=== PATIENT | female | born 1995 | race Hispanic/Latino ===

== ENCOUNTER 2022-05-06 00:37 | Emergency (ER) | payer SELFPAY ==
[2022-05-06 01:33] LABS: Absolute Lymphocytes (CBC) 2.9 K/uL (0.7-4.9); Hematocrit 42.6 % (36.0-45.0); Lymphocytes % 28.1 % (15.3-44.8); MCV 82.6 fL (80-100); MPV 9.1 fL (7.6-11.3); RBC Red Blood Cell Count 5.16 M/uL (3.86-4.86)
[2022-05-06 01:43] LABS: Albumin 4.2 g/dL (3.4-5.0); Bilirubin Total 0.4 mg/dL (0.2-1.0); Potassium 3.3 mmol/L (3.5-5.1); Protein, Total 7.6 g/dL (6.4-8.2)
[2022-05-06 01:45] LABS: Urine Blood Trace-intact (Negative); Urine Glucose Negative (Negative); Urine Protein Negative (Negative); Urine pH 6.5 (5.0-7.0)
--- NOTE | 2022-05-06 03:22 | ER ---
Nurse's Notes [facility] Name: Felicity Biggs Age: 26 yrs Sex: Female : 1995 Arrival Date: 05/06/2022 Time: 00:41 Bed 7 Private MD: Diagnosis: Lower abdominal pain, unspecified-Left lower quadrant Presentation: 05/06 00:54 Chief complaint: Patient states: I have left Lower abdominal pain that started at 2130. jb4 I am feeling nauseous, have had no diarrhea or vomiting. Coronavirus screen: At this time, the client does not indicate any symptoms associated with coronavirus-19. Ebola Screen: No symptoms or risks identified at this time. Initial Sepsis Screen: Does the patient meet any 2 criteria? No. Patient's initial sepsis screen is negative. Does the patient have a suspected source of infection? Yes: Acute abdominal pain. Risk Assessment: Do you want to hurt yourself or someone else? Patient reports no desire to harm self or others. Onset of symptoms was May 06, 2022. Transition of care: patient was not received from another setting of care. 00:54 Method Of Arrival: Ambulatory jb4 00:54 Acuity: ROSALBA 3 jb4 Historical: - Allergies: 00:55 No Known Allergies; jb4 - PMHx: 00:55 None; jb4 - Immunization history:: Adult Immunizations up to date. - Social history:: Smoking status: Patient denies any tobacco usage or history of. Screenin:56 [facility] ED Fall Risk Assessment (Adult) History of falling in the last 3 months, jb4 including since admission No falls in past 3 months (0 pts) Confusion or Disorientation No (0 pts) Score/Fall Risk Level 0 - 2 = Low Risk Oriented to surroundings, Maintained a safe environment. Abuse screen: Denies threats or abuse. Nutritional screening: No deficits noted. Tuberculosis screening: No symptoms or risk factors identified. Assessment: 00:55 General: Appears in no apparent distress. uncomfortable, Behavior is calm, cooperative, jb4 appropriate for age. Pain: Complains of pain in abdomen Pain does not radiate. Pain currently is 8 out of 10 on a pain scale. Neuro: Level of Consciousness is awake, alert, obeys commands, Oriented to person, place, time, situation. Cardiovascular: Patient's skin is warm and dry. Respiratory: Airway is patent Respiratory effort is even, unlabored, Respiratory pattern is regular, symmetrical. GI: Abdomen is flat, non-distended, Abd is soft X 4 quads Abd is non tender in right lower quadrant and left lower quadrant Abdomen is tender to palpation in right upper quadrant and left upper quadrant. : No signs and/or symptoms were reported regarding the genitourinary system. EENT: No signs and/or symptoms were reported regarding the EENT system. Derm: Skin is intact, Skin is pink, warm \T\ dry. Musculoskeletal: Circulation, motion, and sensation intact. Range of motion: intact in all extremities. 02:37 Reassessment: Patient appears in no apparent distress at this time. Patient and/or jb4 family updated on plan of care and expected duration. Pain level reassessed. Pt is resting in bed with family at the bedside, respirations are even and unlabored. 03:40 Reassessment: Patient appears in no apparent distress at this time. Patient and/or jb4 family updated on plan of care and expected duration. Pain level reassessed. Patient is alert, oriented x 3, equal unlabored respirations, skin warm/dry/pink. Pt reports dizziness that started 8 minutes ago. Provider notified, instructed to monitor pt after medication administration and see if symptoms improve. 04:11 Reassessment: Patient appears in no apparent distress at this time. Patient and/or jb4 family updated on plan of care and expected duration. Pain level reassessed. Patient is alert, oriented x 3, equal unlabored respirations, skin warm/dry/pink. Patient states feeling better. Vital Signs: 00:54 BP 125 / 76; Pulse 79; Resp 16; Temp 99.0(O); Pulse Ox 100% on R/A; jb4 02:21 BP 112 / 70; Pulse 83; Resp 18; Pulse Ox 100% on R/A; as7 04:00 BP 108 / 71; Pulse 83; Resp 16; Pulse Ox 100% on R/A; jb4 ED Course: 00:41 Patient arrived in ED. ja2 00:43 Maximiliano Henry DO is Attending Physician. ms3 00:53 Caio Dominguez, RN is Primary Nurse. jb4 00:55 Triage completed. jb4 00:55 Arm band placed on right wrist. jb4 00:56 Patient has correct armband on for positive identification. Bed in low position. Call 4 light in reach. Side rails up X 1. Client placed on continuous cardiac and pulse oximetry monitoring. NIBP monitoring applied. 01:10 Initial lab(s) drawn, by me, sent to lab. Inserted saline lock: 20 gauge in right jb4 antecubital area, using aseptic technique. Blood collected. 02:16 CT Abd/Pelvis - IV Contrast Only In Process Unspecified. EDMS 03:20 Lamin Theodore DO is Referral Physician. ms3 04:13 No provider procedures requiring assistance completed. IV discontinued, intact, jb4 bleeding controlled, No redness/swelling at site. Pressure dressing applied. Administered Medications: 03:39 Drug: Dicyclomine 20 mg Route: PO; jb4 Medication: 04:00 VIS not applicable for this client. jb4 Outcome: 03:21 Discharge ordered by MD. ms3 04:13 Discharged to home ambulatory. jb4 04:13 Condition: stable 04:13 Discharge instructions given to patient, Instructed on discharge instructions, follow up and referral plans. medication usage, Demonstrated understanding of instructions, follow-up care, medications, Prescriptions given X 1. 04:13 Patient left the ED. jb4 Signatures: Dispatcher [employer] EDMS Caio Dominguez RN RN [email or web address] Maximiliano Henry DO DO ms3 Yvette Delgado Autumn as7 Corrections: (The following items were deleted from the chart) 03:42 00:54 Chief complaint: Patient states: I have left upper abdominal pain that started at jb4 2130. I am feeling nauseous, have had no diarrhea or vomiting. jb4
--- NOTE | 2022-05-06 03:22 | EDPHYS ---
Physician Documentation [facility] Name: Felicity Biggs Age: 26 yrs Sex: Female : 1995 Arrival Date: 05/06/2022 Time: 00:41 Bed 7 Private MD: ED Physician Maximiliano Henry HPI: 05/06 01:28 This 26 yrs old Female presents to ER via Ambulatory with complaints of ms3 Abdominal Pain, Headache. 01:28 26-year-old female with no past medical history presents for left lower quadrant ms3 abdominal pain that began at 9:30 PM. Patient rates her pain an 8/10 and describes it as pulsating. Patient endorses nausea and chills. Patient denies vomiting, diarrhea, fevers, cough.. Historical: - Allergies: 00:55 No Known Allergies; jb4 - PMHx: 00:55 None; jb4 - Immunization history:: Adult Immunizations up to date. - Social history:: Smoking status: Patient denies any tobacco usage or history of. ROS: 01:28 Constitutional: Negative for fever, and chills. ENT: Negative for injury, pain, and ms3 discharge, Neck: Negative for injury, pain, and swelling, Cardiovascular: Negative for chest pain, and palpitations. Respiratory: Negative for shortness of breath, cough, wheezing, and pleuritic chest pain. 01:28 MS/Extremity: Negative for injury and deformity, Skin: Negative for injury, rash, and discoloration. 01:28 Abdomen/GI: Positive for abdominal pain, nausea. 01:28 All other systems are negative. Exam: 01:28 Constitutional: This is a well developed, well nourished patient who is awake, alert, ms3 and in no acute distress. Head/Face: Normocephalic, atraumatic. Chest/axilla: Normal chest wall appearance and motion. Nontender with no deformity. Cardiovascular: Regular rate and rhythm with a normal S1 and S2. No gallops, murmurs, or rubs. Normal PMI, no JVD. No pulse deficits. Respiratory: Lungs have equal breath sounds bilaterally, clear to auscultation and percussion. No rales, rhonchi or wheezes noted. No increased work of breathing, no retractions or nasal flaring. Back: No spinal tenderness. No costovertebral tenderness. Full range of motion. Skin: Warm, dry with normal turgor. Normal color with no rashes, no lesions, and no evidence of cellulitis. MS/ Extremity: Pulses equal, no cyanosis. Neurovascular intact. Full, normal range of motion. 01:28 Abdomen/GI: Inspection: abdomen appears normal, Bowel sounds: normal, Palpation: moderate abdominal tenderness, in the left lower quadrant. Vital Signs: 00:54 BP 125 / 76; Pulse 79; Resp 16; Temp 99.0(O); Pulse Ox 100% on R/A; jb4 02:21 BP 112 / 70; Pulse 83; Resp 18; Pulse Ox 100% on R/A; as7 04:00 BP 108 / 71; Pulse 83; Resp 16; Pulse Ox 100% on R/A; jb4 MDM: 00:54 Patient medically screened. ms3 03:23 Differential diagnosis: Diverticulitis vs Ovarian Cyst vs Abdominal pain. Data ms3 reviewed: vital signs, nurses notes, lab test result(s), radiologic studies, and as a result, I will discharge patient. 02 00:54 Order name: CBC with Diff; Complete Time: 02:03 ms3 05/06 00:54 Order name: CMP; Complete Time: 02:03 ms3 05/06 00:54 Order name: Lipase; Complete Time: 02:03 ms3 05/06 01:28 Order name: CT Abd/Pelvis - IV Contrast Only ms3 05/06 01:45 Order name: Urine Dipstick-Ancillary; Complete Time: 02:03 EDMS 05/06 01:55 Order name: Urine --Ancillary (enter results); Complete Time: 02:03 mw2 05/06 00:54 Order name: IV Saline Lock; Complete Time: 01:32 ms3 05/06 00:54 Order name: Labs collected and sent; Complete Time: 01:32 ms3 05/06 00:54 Order name: Urine Dipstick-Ancillary (obtain specimen); Complete Time: 01:45 ms3 05/06 00:54 Order name: Urine Test (obtain specimen); Complete Time: 01:45 ms3 Administered Medications: 03:39 Drug: Dicyclomine 20 mg Route: PO; jb4 Disposition Summary: 05/06/22 03:21 Discharge Ordered Location: Home ms3 Condition: Stable ms3 Diagnosis - Lower abdominal pain, unspecified - Left lower quadrant ms3 Followup: ms3 - With: Lamin Theodore DO - When: 2 - 3 days - Reason: Recheck today's complaints Discharge Instructions: - Discharge Summary Sheet ms3 - Abdominal Pain, Adult ms3 Forms: - Medication Reconciliation Form ms3 - Thank You Letter ms3 - Antibiotic Education ms3 - Prescription Opioid Use ms3 Prescriptions: - dicyclomine 10 mg Oral Capsule - take 1 capsule by ORAL route 3 times per day; 20 capsule; Refills: 0, Product ms3 Selection Permitted Signatures: Dispatcher [employer] Caio Peralta RN RN jb4 Maximiliano Henry DO DO ms3
[2022-05-06] MEDS ORDERED: DICYCLOMINE HCL 10 MG CAP ONE (03:36)
[2022-05-06 04:27] VITALS: TEMP 99; O2SAT 100
[2022-05-06 04:39] VITALS: BP 108/71
--- NOTE | 2022-05-06 19:06 | RAD REPORT ---
EXAM DESCRIPTION: CT Abdomen and Pelvis With Intravenous Contrast CLINICAL HISTORY: The patient is 26 years old and is Female; ABD PAIN TECHNIQUE: Axial computed tomography images of the abdomen and pelvis with intravenous contrast. S agittal and coronal reformatted images were created and reviewed. This CT exam was performed using one or more of the following dose reduction techniques: automated exposure control, adjustment of t he mA and/or kV according to patient size, and/or use of iterative reconstruction technique. COMPARISON: No relevant prior studies available. FINDINGS: LUNG BASES: Unremarkable. No mass. No consolidation. ABDOMEN: LIVER: Unremarkable. No mass. GALLBLADDER AND BILE DUCTS: No calcified stones. No ductal dilation. PANCREAS: No ductal dilation. No mass. SPLEEN: Unremarkable. ADRENALS: Unremarkable. No mass. KIDNEYS AND URETERS: Unremarkable. The kidneys enhance symmetrically. No obstructing renal or ur eteral calculus is seen. No hydronephrosis or hydroureter. No perinephric fluid or stranding. STOMACH AND BOWEL: The stomach is decompressed. The small bowel is normal in caliber. Stool is p resent throughout colon. There is no mucosal thickening or evidence of obstruction. PELVIS: APPENDIX: The appendix measures 0.7 cm is fluid-filled. The appendix is retrocecal in location. No significant surrounding inflammation is noted. BLADDER: The bladder is incompletely distended. Mild bladder wall thickening is present. REPRODUCTIVE: Unremarkable as visualized. ABDOMEN and PELVIS: INTRAPERITONEAL SPACE: Unremarkable. No free air. No significant fluid collection. BONES/JOINTS: No acute fracture. SOFT TISSUES: The soft tissues are normal. VASCULATURE: Unremarkable. No abdominal aortic aneurysm. LYMPH NODES: Unremarkable. No enlarged lymph nodes. IMPRESSION: 1. Upper limits of normal in size appendix. However, there is no significant surroundi ng inflammation. Correlation with patient's history and follow-up as clinically indicated. 2. Moderate stool burden without obstruction. 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 The interpreting radiologist is fully responsible for the content of the report.
== END 2022-05-06 04:13 | disposition home or self-care (01) ==
LOC: ER 00:37
DX: R10.32 Left lower quadrant pain (principal); R51.9 Headache, unspecified
CPT/HCPCS: 36415; 74177; 80053; 81003; 81025; 83690; 85025; 99284; Q9967

== ENCOUNTER 2022-05-22 21:25 | Emergency (ER) | payer SELFPAY ==
--- NOTE | 2022-05-22 22:32 | RAD REPORT ---
EXAM DESCRIPTION: RAD - Chest Single View - 05/22/2022 10:26 pm CLINICAL HISTORY: CHEST PAIN COMPARISON: No comparisons FINDINGS: Lines: None. Lungs: Basilar airspace disease bilaterally. Pleural: No significant pleural effusions or pneumothorax. Cardiac: The heart size is within normal limits. Mediastinum: Within normal limits. Bones: No acute fractures. Other: None IMPRESSION: Basilar airspace disease that could reflect pneumonia.
[2022-05-22 22:35] LABS: Urine Blood 3+ (Negative); Urine Glucose Negative (Negative); Urine Protein 2+ (Negative)
[2022-05-22] MEDS ORDERED: LORazepam 2 MG/ML VIAL ONE (22:46)
[2022-05-22 22:49] LABS: Absolute Lymphocytes (CBC) 1.9 K/uL (0.7-4.9); Lymphocytes % 15.9 % (15.3-44.8); MCV 82.2 fL (80-100); MPV 9.3 fL (7.6-11.3); RBC Red Blood Cell Count 5.23 M/uL (3.86-4.86)
[2022-05-22 22:57] LABS: Troponin High Sensitivity 3.6 pg/mL (<58.9)
[2022-05-22 23:22] LABS: Urine Bacteria >50 /HPF (<20); Urine Mucus 4+ /HPF (None Seen); Urine RBC 21-50 /HPF (None Seen)
[2022-05-23 01:13] LABS: SARS-COV-2 RT PCR NEGATIVE (NEGATIVE)
--- NOTE | 2022-05-23 01:48 | ER ---
Nurse's Notes [facility] Name: Felicity Biggs Age: 26 yrs Sex: Female : 1995 Arrival Date: 05/22/2022 Time: 21:27 Bed 5 Private MD: Diagnosis: UTI/ Urinary tract infection, site not specified;Pneumonia, unspecified organism;Acute stress reaction Presentation: 05/22 21:57 Chief complaint: Patient states: She is feeling shortness of breath and weak. she feels kd3 like her body isn't responding right. This episode started two hours ago. Her chest hurts and her legs are not responding. 21:57 Method Of Arrival: Wheelchair kd3 22:01 Coronavirus screen: Vaccine status: Patient reports receiving the 2nd dose of the covid kd3 vaccine. Ebola Screen: No symptoms or risks identified at this time. 22:02 Initial Sepsis Screen: Does the patient meet any 2 criteria? No. Patient's initial kd3 sepsis screen is negative. Does the patient have a suspected source of infection? No. Patient's initial sepsis screen is negative. Risk Assessment: Do you want to hurt yourself or someone else? Patient reports no desire to harm self or others. Onset of symptoms was May 22, 2022. 22:02 Acuity: ROSALBA 3 kd3 Triage Assessment: 22:02 General: Appears uncomfortable, Behavior is cooperative, anxious. Pain: Complains of kd3 pain in chest. Historical: - Allergies: 22:02 No Known Allergies; kd3 - Home Meds: 22:02 None [Active]; kd3 - Immunization history:: Adult Immunizations up to date. - Social history:: Smoking status: Patient denies any tobacco usage or history of. Screenin/01 01:29 Abuse screen: Denies threats or abuse. Denies injuries from another. Nutritional ha1 screening: No deficits noted. Tuberculosis screening: No symptoms or risk factors identified. 02:43 [facility] ED Fall Risk Assessment (Adult) Score/Fall Risk Level 0 - 2 = Low Risk. kd3 Assessment: 00:30 General: Appears comfortable, Behavior is calm, cooperative. Pain: Denies pain. Neuro: ha1 Level of Consciousness is awake, alert, obeys commands, Oriented to person, place, time, situation. Cardiovascular: Patient's skin is warm and dry. Respiratory: Airway is patent Respiratory effort is even, unlabored, Respiratory pattern is regular, symmetrical. GI: No signs and/or symptoms were reported involving the gastrointestinal system. GI: Abdomen is flat, non-distended. : No signs and/or symptoms were reported regarding the genitourinary system. EENT: No deficits noted. No signs and/or symptoms were reported regarding the EENT system. Derm: Skin is pink, warm \T\ dry. Musculoskeletal: Circulation, motion, and sensation intact. Range of motion: intact in all extremities. 01:28 Reassessment: Patient and/or family updated on plan of care and expected duration. Pain ha1 level reassessed. Patient is alert, oriented x 3, equal unlabored respirations, skin warm/dry/pink. Vital Signs: 05/22 21:57 BP 120 / 94; Pulse 78; Resp 19; Temp 97.7; Pulse Ox 99% on R/A; kd3 05/23 01:28 BP 120 / 80; Pulse 75; Resp 18 S; Pulse Ox 99% on R/A; ha1 02:44 BP 103 / 71; Pulse 89; Resp 21 S; Pulse Ox 99% on R/A; kd3 ED Course: 05/22 21:27 Patient arrived in ED. ag3 21:38 Toni Aldridge PA is PHCP. cp 21:38 Jai Suárez MD is Attending Physician. cp 22:02 Triage completed. kd3 22:02 Arm band placed on. kd3 22:27 XRAY Chest (1 view) In Process Unspecified. EDMS 22:29 Basic Metabolic Panel Sent. bc6 22:29 CBC with Diff Sent. bc6 22:29 D-Dimer Sent. bc6 22:29 Troponin HS Sent. bc6 22:29 Inserted saline lock: 20 gauge in left antecubital area, using aseptic technique. bc6 23:03 Urine Microscopic Only Sent. bc6 05/23 00:29 COVID-19/FLU A+B Sent. bc6 00:30 Patient has correct armband on for positive identification. Bed in low position. Call ha1 light in reach. Side rails up X 1. 01:50 Isabelle Gutierrez, MACHO is Primary Nurse. ha1 02:43 No provider procedures requiring assistance completed. IV discontinued, intact, kd3 bleeding controlled, No redness/swelling at site. Pressure dressing applied. Administered Medications: 05/22 23:10 Drug: Ativan (LORazepam) 0.5 mg Route: IVP; Site: left antecubital; kd3 05/23 02:42 Follow up: Response: No adverse reaction kd3 02:02 Drug: Rocephin (cefTRIAXone) 1 grams Route: IV; Rate: calculated rate; Site: left as6 antecubital; 02:43 Follow up: Response: No adverse reaction; IV Status: Completed infusion; IV Intake: [id number] 02:02 Drug: NS 0.9% 500 ml Route: IV; Rate: bolus; Site: left antecubital; as6 02:43 Follow up: Response: No adverse reaction; IV Status: Completed infusion; IV Intake: kd3 500ml 02:02 Drug: Zithromax (azithromycin) 500 mg Route: PO; as6 02:43 Follow up: Response: No adverse reaction kd3 Medication: 02:44 VIS not applicable for this client. kd3 Intake: 02:43 IV: 10ml; Total: 10ml. kd3 02:43 IV: 500ml; Total: 510ml. kd3 Outcome: 01:47 Discharge ordered by MD. cp 02:44 Discharged to home ambulatory. kd3 02:44 Condition: stable 02:44 Discharge instructions given to patient, Instructed on discharge instructions, follow up and referral plans. medication usage, Demonstrated understanding of instructions, follow-up care, medications, Prescriptions given X 3. 02:44 Patient left the ED. kd3 Signatures: Dispatcher [employer] EDMS Toni Aldridge PA PA cp Gomez, Alice 3 Levy Ramires RN RN as6 Elke Nieto RN RN kd3 Isabelle Gutierrez RN RN ha1 Ira Miramontes [facility]
--- NOTE | 2022-05-23 01:48 | EDPHYS ---
Physician Documentation [facility] Name: Felicity Biggs Age: 26 yrs Sex: Female : 1995 Arrival Date: 05/22/2022 Time: 21:27 Bed 5 Private MD: ED Physician Jai Suárez HPI: 05/22 22:10 This 26 yrs old Female presents to ER via Wheelchair with complaints of cp Weakness, Syncope, Shortness Of Breath. 22:10 The patient presents to the emergency department with weakness of the right upper cp extremity, right lower extremity, entire body, generalized weakness. Onset: The symptoms/episode began/occurred 2 hour(s) ago. Associated signs and symptoms: Pertinent positives: syncope, chest pain, shortness of breath, Pertinent negatives: altered mental status, fever, headache, neck stiffness. Severity of symptoms: in the emergency department the symptoms are unchanged despite home interventions. Patient's baseline: Neuro: alert and fully oriented, Motor: no deficits, Ambulation: walks without assistance, Speech: normal. Patient accompanied by friends who report patient broke up with boyfriend today. 05/23 00:15 Patient reports cough for past couple days, congestion. cp Historical: - Allergies: 05/22 22:02 No Known Allergies; kd3 - Home Meds: 22:02 None [Active]; kd3 - Immunization history:: Adult Immunizations up to date. - Social history:: Smoking status: Patient denies any tobacco usage or history of. ROS: 22:15 Constitutional: Negative for fever. cp 22:15 Eyes: Negative for injury, pain, redness, and discharge. cp 22:15 Cardiovascular: Positive for chest pain, Negative for palpitations. 22:15 Abdomen/GI: Negative for abdominal pain, vomiting, diarrhea, constipation. 22:15 : Negative for urinary symptoms, vaginal bleeding. 22:15 Neuro: Positive for syncope, weakness, of the general and left leg and right leg, Negative for altered mental status, headache. 22:15 All other systems are negative. Exam: 22:16 ECG was reviewed by the Attending Physician. cp 22:20 Constitutional: The patient appears in no acute distress, alert, awake, cp non-diaphoretic, non-toxic, well developed, well nourished, anxious. 22:20 Head/Face: Normocephalic, atraumatic. cp 22:20 Eyes: Periorbital structures: appear normal, Pupils: equal, round, and reactive to light and accomodation, Extraocular movements: intact throughout, Conjunctiva: normal, no exudate, no injection, Sclera: no appreciated abnormality, Lids and lashes: appear normal, bilaterally. 22:20 ENT: External ear(s): are unremarkable, Nose: is normal, Mouth: Lips: moist, Oral mucosa: pink and intact, moist, Posterior pharynx: Airway: no evidence of obstruction, patent. 22:20 Neck: ROM/movement: is normal, is supple, no meningismus, no nuchal rigidity. 22:20 Chest/axilla: Inspection: normal. 22:20 Cardiovascular: Rate: normal, Rhythm: regular, Edema: is not appreciated, JVD: is not appreciated. 22:20 Respiratory: the patient does not display signs of respiratory distress, Respirations: normal, no use of accessory muscles, no retractions, labored breathing, is not present, Breath sounds: are clear throughout, no decreased breath sounds, no stridor, no wheezing. 22:20 Abdomen/GI: Inspection: abdomen appears normal, Bowel sounds: active, all quadrants, Palpation: abdomen is soft and non-tender, in all quadrants. 22:20 Back: pain, is absent, CVA tenderness, is absent. 22:20 Skin: cellulitis, is not appreciated, no rash present. 22:20 Neuro: Orientation: to person, place \T\ time. Mentation: able to follow commands, slow to respond, Cerebellar function: is grossly normal, Motor: moves all fours, general weakness with no focal deficits, Sensation: no obvious gross deficits. Vital Signs: 21:57 BP 120 / 94; Pulse 78; Resp 19; Temp 97.7; Pulse Ox 99% on R/A; kd3 05/23 01:28 BP 120 / 80; Pulse 75; Resp 18 S; Pulse Ox 99% on R/A; ha1 02:44 BP 103 / 71; Pulse 89; Resp 21 S; Pulse Ox 99% on R/A; kd3 MDM: 05/22 22:04 Patient medically screened. cp 05/23 01:46 Data reviewed: vital signs, nurses notes, lab test result(s), EKG, radiologic studies, cp plain films. 01:46 Consideration of Admission/Observation Escalation of care including cp admission/observation considered. I considered the following discharge prescriptions or medication management in the emergency department Medications were administered in the Emergency Department. See MAR. Test considered but Not performed: CT: chest, head. Counseling: I had a detailed discussion with the patient and/or guardian regarding: the historical points, exam findings, and any diagnostic results supporting the discharge/admit diagnosis, lab results, radiology results, the need for outpatient follow up, a family practitioner, to return to the emergency department if symptoms worsen or persist or if there are any questions or concerns that arise at home. Response to treatment: the patient's symptoms have markedly improved after treatment, and as a result, I will discharge patient. 05/22 22:04 Order name: Basic Metabolic Panel; Complete Time: 23:54 cp 05/22 23:54 Interpretation: Normal except: CL 111; GLUC 115. cp 05/22 22:04 Order name: CBC with Diff; Complete Time: 23:54 cp 05/22 23:55 Interpretation: Normal except: WBC 11.90; RBC 5.23; LOPEZ% 78.8; NEUT A 9.4. cp 05/22 22:04 Order name: D-Dimer; Complete Time: 23:54 cp 05/22 22:04 Order name: Troponin HS; Complete Time: 23:54 cp 05/22 22:04 Order name: XRAY Chest (1 view); Complete Time: 23:54 cp 05/22 22:04 Order name: EKG; Complete Time: 22:05 cp 05/22 22:04 Order name: Cardiac monitoring; Complete Time: : cp 05/22 22:04 Order name: EKG - Nurse/Tech; Complete Time: 22:11 cp 05/22 22:04 Order name: IV Saline Lock; Complete Time: :29 cp 05/22 22:04 Order name: Labs collected and sent; Complete Time: 22:29 cp 05/22 22:04 Order name: O2 Per Protocol; Complete Time: : cp 05/22 22:04 Order name: O2 Sat Monitoring; Complete Time: 01:27 cp 05/22 22:04 Order name: Urine Microscopic Only; Complete Time: 23:54 cp 05/22 23:55 Interpretation: Normal except: URBC 21-50; UBACT >50; MUCUS 4+. cp 05/22 22:04 Order name: Urine Dipstick-Ancillary (obtain specimen); Complete Time: 22:37 cp 05/22 22:04 Order name: Urine Test (obtain specimen); Complete Time: 22:37 cp 05/22 22:35 Order name: Urine Dipstick-Ancillary; Complete Time: 23:54 EDMS 05/22 23:55 Interpretation: Normal except: UKET 2+; UBLD 3+; UPROT 2+; UESTR Trace. cp 05/22 22:37 Order name: Urine --Ancillary (enter results); Complete Time: 23:54 ds4 05/22 23:56 Order name: COVID-19/FLU A+B cp 05/23 01:13 Order name: COVID-19/FLU A+B EDMS EC/28 22:16 Rate is 79 beats/min. Rhythm is regular. NE interval is normal. QRS interval is normal. cp QT interval is normal. Interpreted by me. Reviewed by me. Administered Medications: 23:10 Drug: Ativan (LORazepam) 0.5 mg Route: IVP; Site: left antecubital; kd3 05/23 02:42 Follow up: Response: No adverse reaction kd3 02:02 Drug: Rocephin (cefTRIAXone) 1 grams Route: IV; Rate: calculated rate; Site: left as6 antecubital; 02:43 Follow up: Response: No adverse reaction; IV Status: Completed infusion; IV Intake: [id number] 02:02 Drug: NS 0.9% 500 ml Route: IV; Rate: bolus; Site: left antecubital; as6 02:43 Follow up: Response: No adverse reaction; IV Status: Completed infusion; IV Intake: kd3 500ml 02:02 Drug: Zithromax (azithromycin) 500 mg Route: PO; as6 02:43 Follow up: Response: No adverse reaction kd3 Disposition: 03:30 Co-signature as Attending Physician, Jai Suárez MD I reviewed the patient's care rt provided by the Advanced Practice Provider and agree with the diagnosis and treatment plan. Disposition Summary: 05/23/22 01:47 Discharge Ordered Location: Home cp Problem: new cp Symptoms: have improved cp Condition: Stable cp Diagnosis - UTI/ Urinary tract infection, site not specified cp - Pneumonia, unspecified organism cp - Acute stress reaction cp Followup: cp - With: Private Physician - When: 1 - 2 days - Reason: Recheck today's complaints Discharge Instructions: - Discharge Summary Sheet cp - Panic Attack cp - Community-Acquired Pneumonia, Adult cp - Urinary Tract Infection, Adult cp Forms: - Medication Reconciliation Form cp - Thank You Letter cp - Antibiotic Education cp - Prescription Opioid Use cp Prescriptions: - Bromfed DM 2-30-10 mg/5 mL Oral syrup - take 10 milliliter by ORAL route every 6 hours; 180 milliliter; Refills: 0, cp Product Selection Permitted - Augmentin 875-125 mg Oral Tablet - take 1 tablet by ORAL route every 12 hours for 10 days; 20 tablet; Refills: 0, cp Product Selection Permitted - Zithromax Z-Luis Angel 250 mg Oral Tablet - take 1 tablet by ORAL route as directed for 5 days Day 1 - take two (2) tablets cp one time. Day 2, 3, 4 , 5 take one (1) tablet once daily.; 6 tablet; Refills: 0, Product Selection Permitted Signatures: Dispatcher [employer] EDMS Toni Aldridge PA PA cp Levy Ramires RN RN as6 Elke Nieto RN RN kd3 Jai Suárez MD MD rt Corrections: (The following items were deleted from the chart) 23:14 00:45 Patient reports cough for past couple days, congestion. cp cp
[2022-05-23] MEDS ORDERED: NA CHLORIDE 0.9% 0 ML ONE (01:58)
[2022-05-23] MEDS ORDERED: AZITHROMYCIN 250 MG TAB ONE ×2 (01:58→02:03)
[2022-05-23] MEDS ORDERED: CEFTRIAXONE 1000 MG/VIAL ONE ×2 (01:58→02:03)
[2022-05-23] MEDS ORDERED: NA CHLORIDE 0.9% 50 ML ONE (02:03)
[2022-05-23] MEDS ORDERED: NA CHLORIDE 0.9% 500 ML ONE (02:03)
[2022-05-23 03:08] VITALS: TEMP 97.7; O2SAT 99
[2022-05-23 03:19] VITALS: BP 103/71
--- NOTE | 2022-05-23 11:14 | EKG ---
Test Date: 2022-05-22 Test Time: 22:13:31 Instant Powder Supervisor: HALEY MEASUREMENT RESULTS: Intervals: Rate: 79 IN: 144 QRSD: 78 QT: 356 QTc: 408 [place]: P: 64 IN: 144 QRS: 62 T: 41 INTERPRETIVE STATEMENTS: Normal sinus rhythm Normal ECG No previous ECG available for comparison Electronically Signed On 05-23-22 11:13:42 [employer] by Arron Edge
== END 2022-05-23 02:44 | disposition home or self-care (01) ==
LOC: ER 21:25
DX: J18.9 Pneumonia, unspecified organism (principal); N39.0 Urinary tract infection, site not specified; F43.0 Acute stress reaction; Z20.822 Contact with and (suspected) exposure to COVID-19
CPT/HCPCS: 0240U; 36415; 71045; 80048; 81003; 81015; 81025; 84484; 85025; 85379; 93005; J7040

== ENCOUNTER 2024-06-05 06:02 | Emergency (ER) | payer OTHER, SELFPAY ==
--- OUTSIDE RECORDS SUMMARY | 2024-06-05 06:13 | XMS REPORT | Continuity of Care Document ---
Author Name Unknown Address [address] [place] [address] [facility] [place] Address [address] [place] [address] Care Team Providers Care Client Experience Administrator Name Role Phone Yamil Zafar Primary Care Physician Doctor Unassigned, Adams Attending Clinician U navailgenaro Esposito Eduardo LYON Attending Clinician + Norma Maier Attending Clinician [phone] NORMA MATT Attending Clinician Unavailable LIV JONES Attending Clinician Unavailable MONY DE LEON Attending Clinician Unavailable MONY DE LEON Attending Clinician Unavailable MONY DE LEON Attending Clinician Unavailable TANYA CROWLEY Attending Clinician Unavailable TANYA CROWLEY Attending Clinician Unavailable EDUARDO ESPOSITO Attending Clinician Unavail able Visit, [facility] Nurse Attending Clinician Unava ilable TARA COTTRE Attending Clinician UnavailTanya Florian MD Attending Clinician [phone] Mony De Loen MD Attending Clinician [phone] Tara Cotter MD Attending Clinician [phone] Tyson Prado DO Attending Clinician [phone] Maury MELCHOR, Jorge Harrell Attending Clinician + [phone] Nabeel MELCHOR, [place] Attending Clinician +- [phone] Leeroy De La Vega MD Attending Clinician [phone] 1, [facility] Attending Clinician Unavaila Velia Verma MD Attending Clinician [phone] Melanie Fernando MD Attending Clinician + Arash Laughlin MD Attending Clinician [phone] Raji Grant MD Attending Clinician MELANIE FERNANDO Attending Clinician Unav ailable MELANIE FERNANDO Attending Clinician Unav ailable 3, [facility] U[facility] Room Attending Clinician Unavaila kalpana NaunToni white DO Attending Clinician [phone] Eddie MELCHOR, Tanner Ku Attending Clinician [phone] ARASH LAUGHLIN Attending Clinician Unavailable ARASH LAUGHLIN Attending Clinician Unavailable ARASH LAUGHLIN Attending Clinician Unavailable Naomi Hernandez NP Attending Clinician [phone] Risk, Ple-Wywcu-Wj/High Attending Clinician Unav ailable NAOMI HERNANDEZ Attending Clinician Unavail able NAOMI HERNANDEZ Attending Clinician Unavail able VELIA SUTTON Attending Clinician Unavailable VELIA SUTTON Attending Clinician Unavailable 2, [facility] Usg Room Attending Clinician Unavaila SANDOR Alvarez Attending Clinician Unavailable Sandor Deshpande MD Attending Clinician [phone] Elvia Mcmahon Attending Clinician UnavailDARLENE Garcia Attending Clinician Unav ailable Renetta Bonilla CNM Attending Clinician [phone] AkinEduardo Gordon Attending Clinician + RENETTA BONILLA Attending Clinician Unavaila TONI Daniels Attending Clinician Unavailable TOIN DUMONT Attending Clinician Unavailable Ultrasound, Naznimisha Attending Clinician Unavaila kalpana LabNazzenon Attending Clinician Unavailable [facility] Unava ilable Doctor Unassigned, Adams Attending Clinician U lolly Richard MD, Sea Rodrigez Attending Clinician [phone] Marixa Hanley MD Attending Clinician [phone] MARIXA HANLEY Attending Clinician Unavailable SEEMA TORRE Attending Clinician UnavailOMNY Bishop Admitting Clinician Unavailable Mony De Leon MD Admitting Clinician Darlene Grant MD Admitting Clinician + RAJI GRANT Admitting Clinician Un available TANYA CROWLEY Admitting Clinician Unavailable Tanya Crowley MD Admitting Clinician [phone] VELIA SUTTON Admitting Clinician Unavailable Velia Sutton MD Admitting Clinician [phone] Payers Payer Name Policy Type Policy Number Effective Date Expirati on Date Source [facility] [id number] EMERGENCY MEDICAID [id number] 2024 00:00:00 2024 00:00:00 Problems Condition Name Condition Details Condition Category Status Onset Date Resolution Date Last Treatment Date Treating Clinician Comments Source Routine follow-up Routine follow-up Disease Active 2023-03 2-12 00:00: 00 [facility] Vaginal bleeding in , third trimester Vaginal bleeding in , third trimester Disease Resolve d 2023-03 1-12 00:00: 00 2024-03-26 00:00:00 2024-03-26 10:53:16 [facility] affected by growth restrictio n affected by growth restrictio n Disease Resolve d 2023-03 0-29 00:00: 00 2024-03-26 00:00:00 2024-03-26 10:53:20 [facility] IUGR (intrauter ine growth restrictio n) affecting care of mother IUGR (intrauter ine growth restrictio n) affecting care of mother Disease Resolve d 9-19 00:00: 00 2024-03-26 00:00:00 2024-03-26 10:53:23 Overview: Formattin g of this note might be different from the original. NIPT LR FemaleFGR <3%ile09/ 30 dopplers AEDFNeeds Rhogam and Betametha sone +/- mag and admission [facility] Susceptibl e to varicella (non-immun e), currently Susceptibl e to varicella (non-immun e), currently Disease Resolve d 2023-0 6-24 00:00: 00 2024-03-26 00:00:00 2024-03-26 10:53:27 Overview: Formattin g of this note might be different from the original. Address pp [facility] Rh negative state in antepartum period Rh negative state in antepartum period Disease Resolve d 0 5-23 00:00: 00 2024-03-26 00:00:00 2024-03-26 10:53:32 [facility] Rubella non-immune status, antepartum Rubella non-immune status, antepartum Disease Resolve d 0 5- 00:00: 00 2024-03-26 00:00:00 2024-03-26 10:53:29 Overview: Formattin g of this note might be different from the original. Address pp [facility] 30 weeks gestation of 30 weeks gestation of Disease Resolve d 2023-03 0-29 00:00: 00 2024-02-21 00:00:00 2024-02-21 14:41:49 [facility] growth restrictio n antepartum growth restrictio n antepartum Disease Resolve d 2023-03 0-17 00:00: 00 2024-02-21 00:00:00 2024-02-21 14:41:52 [facility] Pyelectasi s Pyelectasi s Disease Resolve d 0 9-19 00:00: 00 2024-02-21 00:00:00 2024-02-21 14:41:55 Overview: Formattin g of this note might be different from the original. Noted on usg FU is [facility] for IUGR will need to be scheduled . [facility] Abnormal maternal glucose tolerance, antepartum Abnormal maternal glucose tolerance, antepartum Disease Resolve d 2023-0 5-23 00:00: 00 2024-02-21 00:00:00 2024-02-21 14:41:51 Overview: Formattin g of this note might be different from the original. Pending 3hr gtt [facility] Supervisio n of high-risk Supervisio n of high-risk Disease Resolve d 08-13 00:00: 00 2024-02-21 00:00:00 2024-02-21 14:41:58 [facility] 27 weeks gestation of 27 weeks gestation of Disease Resolve d 2023-03 0- 00:00: 00 2024-01-07 00:00:00 2024-01-07 15:40:53 [facility] Well woman exam Well woman exam Disease Resolve d 16 00:00: 00 2023-08-14 00:00:00 2023-08-14 14:07:56 [facility] OCP (oral contracept mana pills) initiation OCP (oral contracept mana pills) initiation Disease Resolve d 04-06 00:00: 00 2023-08-14 00:00:00 2023-08-14 14:07:57 [facility] Allergies, Adverse Reactions, Alerts Allergy Name Allergy Type Status Severity Reaction(s) Onset Date Inactive Date Treating Clinician Comments Source none (Not Checked) Propensi ty to adverse reaction to drug Active 08-07 00:00: 00 Sam Conner NO KNOWN ALLERGIE S Drug Class Active [facility] Family History Family Member Diagnosis Comments Start Date Stop Date Sourc e Maternal grandmother Hypertension [facility] Hy[facility] Social History Social Habit Start Date Stop Date Quantity Comments Source ASSERTION 2023-07-08 00:00:00 [facility] Gender identity [facility] of Social function 2024-02-19 00:00:00 2024-02-19 00:00:00 [facility] Alcoholic beverage intake 2023-09-12 00:00:00 2023-09-12 00:00:00 Ex-drinker (finding) [facility] Alcohol intake 2023-04-09 00:00:00 2023-04-09 00:00:00 Ex-drinker (finding) [facility] Exposure to SARS-CoV-2 (event) 2022-07-01 00:00:00 2022-07-11 11:06:00 Not sure [facility] Tobacco use and exposure 2022-04-05 00:00:00 2022-04-05 00:00:00 Smokeless tobacco non-user [facility] Sex assigned at 1996-01-27 00:00:00 1996-01-27 00:00:00 [facility] Smoking Status Start Date Stop Date Source Tobacco smoking consumption unknown [facility] Never smoked tobacco [facility] Medications Ordered Medication Name Filled Medication Name Start Date Stop Date Current Medication? Ordering Clinician Indication Dosage Frequency Signature (SIG) Comments Components Source etonogestre L (NEXPLANON) implant 68 mg 03-26 17:45: 00 03-26 21:36 :00 No [id number] 68mg 68 mg, Subdermal, ONCE NOW, 1 dose, On Sat03/26/24 at 1145, Routine, Use approved by: QUALITY ASSURANCE QA LAB ANALYST [facility] vitamin w/FA tablet 2023-03 00:00: 00 Yes [id number] 1{tbl} Take 1 tablet by mouth daily. [facility] docusate 100 mg capsule 2023-03 00:00: 00 Yes [id number] 200mg Take 2 capsules by mouth once daily as needed for Constipati on. [facility] ferrous sulfate 325 mg (65 mg iron) tablet 2023-03 00:00: 00 Yes [id number] 325mg Take 1 tablet by mouth daily. [facility] ibuprofen 800 mg tablet 2023-03 00:00: 00 Yes [id number] 800mg Take 1 tablet by mouth every 8 (eight) hours as needed (pain). Take with food or milk. [facility] acetaminoph en 500 mg tablet 2023-03 00:00: 00 Yes [id number] 1000mg Take 2 tablets by mouth every 8 (eight) hours as needed for Pain. [facility] oxyCODONE 5 mg immediate release tablet 2023-03 00:00: 00 02-23 05:59 :00 No [id number] 5mg Take 1 tablet by mouth every 6 (six) hours as needed (pain) for up to 7 days. Indication s: acute pain [facility] docusate (COLACE) capsule 200 mg 2023-03 15:00: 00 02-16 01:44 :41 No 200mg 200 mg, Oral, DAILY, First dose on Sat02/14/24 at 0900, Until Discontinu ed, Routine [facility] simethicone (GAS RELIEF (SIMETHICON E)) chewable tablet 160 mg 2023-03 02:00: 00 02-16 01:44 :41 No 160mg 160 mg, Oral, TID, First dose on Sat02/13/24 at 2000, Until Discontinu ed, Routine [facility] rho(D) immune globulin (RHOPHYLAC) injection 300 mcg 2023-03 01:30: 00 02-13 05:45 :00 No 300ug 300 mcg, Intramuscu lar, ONCE, 1 dose, On Sat02/13/24 at 1930, Routine [facility] diphenhydrA MINE (BENADRYL) injection 25 mg 2023-03 01:19: 02-16 01:44 :41 No 25mg [facility] diphenhydrA MINE (BENADRYL) tablet 25 mg 2023-03 01:19: 02-16 01:44 :41 No 25mg [facility] ondansetron (ZOFRAN (PF)) injection 4 mg 2023-03 01:19: 31 02-16 01:44 :41 No 4mg [facility] bisacodyL (DULCOLAX) suppository 10 mg 2023-03 01:19: 02-16 01:44 :41 No 10mg [facility] magnesium hydroxide (MILK OF MAGNESIA) 400 mg/5 mL suspension 30 mL 2023-03 01:19: 31 02-16 01:44 :40 No 30mL 30 mL, Oral, QDAILYPRN, Starting on Sat02/13/24 at 1919, Until Sat02/16/24 at 1944, Routine, Constipati on [facility] oxyCODONE immediate release tablet 5 mg 2023-03 00:33: 52 02-16 01:44 :41 No 5mg 5 mg, Oral, Q6HPRN, Starting on Sat02/13/24 at 1833, Until Sat02/16/24 at 1944, Routine, Pain (scale 7-10), waitangi tribunal member approving Restricted medication : MELANIE FERNANDO [facility] ibuprofen (IBU) tablet 800 mg 2023-03 00:00: 00 02-16 01:44 :41 No 800mg 800 mg, Oral, Q8HA1, First dose on Sat02/13/24 at 1800, Until Discontinu ed, Routine [facility] acetaminoph en (TYLENOL) tablet 1,000 mg 2023-03 20:00: 00 02-16 01:44 :41 No 1000mg 1,000 mg, Oral, Q8H, First dose on Sat02/13/24 at 1400, Until Discontinu ed, Routine [facility] lactated ringers IV infusion 1,000 mL 2023-03 18:00: 00 02-13 01:19 :55 No 1000mL at 125 mL/hr, 1,000 mL, IV Infusion, CONTINUOUS , Starting on Sat02/13/24 at 1200, Until Sat02/13/24 at 1919, KAEL [facility] sodium citrate-cit feng acid (BICITRA) 500-334 mg/5 mL solution 30 mL 2023-03 13:58: 15 02-12 16:29 :00 No 30mL 30 mL, Oral, PRE-PROCED URE ONCE, 1 dose, Starting on Sat02/13/24 at 0758, Until Sat02/13/24 at 1029, Routine, Surgery [facility] ceFAZolin (ANCEF) 2,000 mg in NaCl 0.9% (NS) 100 mL MINI-BAG 2023-03 13:58: 01 02-12 16:59 :00 No 2000mg 2,000 mg, IV Piggyback, O.R. HOLDING ONCE, 1 dose, Starting on Sat02/13/24 at 0758, Until Sat02/13/24 at 1059, Administer over 30 Minutes, 100 mL, Reason for Anti-Infec tive: Surgical Prophylaxi s, Surgical Prophylaxi s: QUALITY ASSURANCE QA LAB ANALYST, Duration of therapy: [facility] famotidine (PEPCID AC) tablet 20 mg 2023-03 15:00: 00 02-13 01:19 :55 No 20mg 20 mg, Oral, DAILY, First dose on Sat02/09/24 at 0900, Until Discontinu ed, Routine [facility] metoclopram drea HCl (REGLAN) tablet 10 mg 2023-03 13:45: 00 02-08 14:18 :00 No 10mg 10 mg, Oral, ONCE, 1 dose, On Sat02/09/24 at 0745, Routine [facility] diphenhydrA MINE (BENADRYL) tablet 25 mg 2023-03 04:15: 00 02-08 05:18 :00 No 25mg 25 mg, Oral, ONCE, 1 dose, On 02/08/24 at 2215, Routine [facility] stannous fluoride (GEL MARKO) 0.4 % dental gel 2023-03 15:00: 00 02-13 01:19 :55 No Dental, DAILY, First dose on Sat02/06/24 at 0900, Until Discontinu ed, Routine [facility] chlorhexidi ne (PERIDEX) 0.12 % mouthwash 15 mL 2023-03 02:00: 00 02-13 01:19 :55 No 15mL 15 mL, Oral (Swish And Spit Out), BID, First dose on Sat02/05/24 at 2000, Until Discontinu ed, Routine [facility] acetaminoph en (TYLENOL) tablet 1,000 mg 2023-03 14:27: 03 02-13 01:19 :55 No 1000mg 1,000 mg, Oral, Q8HPRN, Starting on Sat02/02/24 at 0827, Until Brittanie 02/13/24 at 1919, Routine, pain [facility] ondansetron (ZOFRAN) tablet 4 mg 2023-03 14:15: 00 02-01 13:57 :00 No 4mg 4 mg, Oral, ONCE, 1 dose, On Sat02/02/24 at 0815, Routine [facility] acetaminoph en (TYLENOL) tablet 1,000 mg 2023-03 14:15: 00 01-31 13:57 :00 No 1000mg 1,000 mg, Oral, ONCE, 1 dose, On 02/01/24 at 0815, Routine [facility] acetaminoph en (TYLENOL) tablet 650 mg 2023-03 19:01: 00 02-01 13:27 :26 No 650mg 650 mg, Oral, Q6HPRN, Starting on Sat01/30/24 at 1301, Until Sat02/02/24 at 0727, Routine, Pain (scale 1-3), Pain (scale 4-6) [facility] acetaminoph en (TYLENOL) tablet 1,000 mg 2023-03 22:33: 00 01-25 22:48 :00 No 1000mg 1,000 mg, Oral, ONCE NOW, 1 dose, On Sat01/26/24 at 1645, Routine [facility] betamethaso ne acet,sod phos (CELESTONE SOLUSPAN) 6 mg/mL injection 12 mg 2023-03 01:15: 00 01-23 03:11 :00 No 12mg 12 mg, Intramuscu lar, Q24H, 2 doses, First dose on Sat01/22/24 at 2014, Last dose on Sat01/23/24 at 2014, Routine [facility] caffeine tablet 200 mg 2023-03 22:45: 00 01-22 00:12 :00 No 200mg 200 mg, Oral, ONCE, 1 dose, On Sat01/22/24 at 1745, Routine [facility] proCHLORper azine (COMPAZINE) tablet 10 mg 2023-03 22:31: 00 01-22 00:12 :00 No 10mg 10 mg, Oral, ONCE, 1 dose, On Sat01/22/24 at 1745, Routine [facility] metoclopram drea HCl (REGLAN) tablet 10 mg 2023-03 21:30: 00 02-01 13:27 :26 No 10mg 10 mg, Oral, AC, First dose on Sat01/22/24 at 1630, Until Discontinu ed, Routine [facility] cyclobenzap rine (FLEXERIL) tablet 10 mg 2023-03 18:00: 00 01-21 19:39 :00 No 10mg 10 mg, Oral, ONCE, 1 dose, On Sat01/22/24 at 1300, Routine [facility] diphenhydrA MINE (BENADRYL) tablet 25 mg 2023-03 18:00: 00 01-21 19:39 :00 No 25mg 25 mg, Oral, ONCE, 1 dose, On Sat01/22/24 at 1300, Routine [facility] acetaminoph en (TYLENOL) tablet 1,000 mg 2023-03 12:15: 00 01-21 11:34 :00 No 1000mg 1,000 mg, Oral, ONCE, 1 dose, On Sat01/22/24 at 0715, Routine [facility] D5W-LR IV infusion 1,000 mL 2023-03 05:45: 00 01-23 14:04 :57 No 1000mL at 25 mL/hr, IV Infusion, CONTINUOUS , Starting on Sat01/22/24 at 0045, Until Sat01/24/24 at 0904, KAEL [facility] ondansetron (ZOFRAN) tablet 4 mg 2023-03 02:45: 00 01-21 01:53 :00 No 4mg 4 mg, Oral, ONCE, 1 dose, On Sat01/21/24 at 2145, Routine [facility] acetaminoph en (TYLENOL) tablet 1,000 mg 2023-03 01:00: 00 01-21 00:20 :00 No 1000mg 1,000 mg, Oral, ONCE, 1 dose, On Sat01/21/24 at 2000, Routine [facility] D5W-LR IV infusion 1,000 mL 2023-03 00:15: 00 01-21 05:42 :45 No 1000mL at 75 mL/hr, IV Infusion, CONTINUOUS , Starting on Sat01/21/24 at 1915, Until Sat01/22/24 at 0042, KAEL [facility] alum-mag hydroxide-s imeth (MAG-AL PLUS) 200-200-20 mg/5 mL suspension 30 mL 2023-03 23:58: 18 02-13 01:19 :55 No 30mL 30 mL, Oral, Q6HPRN, Starting on Sat01/21/24 at 1858, Until Sat02/13/24 at 1919, Routine, Indigestio n [facility] docusate (COLACE) capsule 200 mg 2023-03 23:58: 18 02-13 01:19 :55 No 200mg 200 mg, Oral, QHSPRN, Starting on Sat01/21/24 at 1858, Until Sat02/13/24 at 1919, Routine, Constipati on [facility] acetaminoph en (TYLENOL) tablet 1,000 mg 2023-03 14:39: 50 01-17 20:29 :22 No 1000mg 1,000 mg, Oral, Q8HPRN, Starting on Sat01/17/24 at 0939, Until 01/18/24 at 1529, Routine, pain [facility] acetaminoph en (TYLENOL) tablet 650 mg 2023-03 15:48: 46 01-16 13:40 :18 No 650mg 650 mg, Oral, Q6HPRN, Starting on Sat01/16/24 at 1048, Until Sat01/17/24 at 0840, Routine, Pain (scale 4-6) [facility] diphenhydrA MINE (BENADRYL) tablet 25 mg 2023-03 02:45: 00 01-11 02:02 :00 No 25mg 25 mg, Oral, ONCE, 1 dose, On 01/11/24 at 2145, Routine [facility] benzocaine- menthoL (CEPACOL SORE THROAT (JOSE A-MEN)) lozenge 1 Lozenge 2023-03 01:46: 02 01-17 20:29 :22 No 1{lozen ge} 1 Lozenge, Oral, Q4HPRN, Starting on 01/11/24 at 2046, Until 01/18/24 at 1529, Routine, Sore throat [facility] acetaminoph en (TYLENOL) tablet 1,000 mg 2023-03 16:15: 00 01-09 15:10 :00 No 1000mg 1,000 mg, Oral, ONCE, 1 dose, On Sat01/10/24 at 1115, Routine [facility] alum-mag hydroxide-s imeth (MAG-AL PLUS) 200-200-20 mg/5 mL suspension 30 mL 2023-03 0 17:41: 09 01-17 20:29 :22 No 30mL [facility] docusate (COLACE) capsule 200 mg 2023-03 17:41: 09 01-17 20:29 :22 No 200mg Univers [facility] magnesium hydroxide (MILK OF MAGNESIA) 400 mg/5 mL suspension 30 mL 2023-03 17:41: 09 01-17 20:29 :22 No 30mL [facility] edp231-akeo fum-folic () tablet 1 tablet 2023-03 0 14:00: 00 Yes 1{tbl} 1 tablet, Oral, DAILY, First dose on Sat12/24/23 at 0900, Until Discontinu ed, Routine [facility] rho(D) immune globulin (RHOPHYLAC) injection 300 mcg 12-22 22:00: 00 12-23 01:01 :00 No 300ug 300 mcg, Intramuscu lar, ONCE, 1 dose, On Sat12/23/23 at 1700, Routine [facility] acetaminoph en (TYLENOL) tablet 650 mg 12-22 20:40: 26 Yes 650mg 650 mg, Oral, Q6HPRN, Starting on Sat12/23/23 at 1540, Until Discontinu ed, Routine, Pain (scale 1-3), Pain (scale 4-6) [facility] diphenhydrA MINE (BENADRYL) tablet 25 mg 12-22 19:55: 38 Yes 25mg 25 mg, Oral, Q4HPRN, Starting on Sat12/23/23 at 1455, Until Discontinu ed, Routine, Itching, Sleep [facility] betamethaso ne acet,sod phos (CELESTONE SOLUSPAN) 6 mg/mL injection 12 mg 12-22 19:15: 00 12-23 22:03 :00 No 12mg 12 mg, Intramuscu lar, Q24H, 2 doses, First dose on Sat12/23/23 at 1415, Last dose on Sat12/24/23 at 1415, Routine [facility] alum-mag hydroxide-s imeth (MAG-AL PLUS) 200-200-20 mg/5 mL suspension 30 mL 12-22 18:27: 11 Yes 30mL 30 mL, Oral, Q6HPRN, Starting on Sat12/23/23 at 1327, Until Discontinu ed, Routine, Indigestio n [facility] docusate (COLACE) capsule 200 mg 12-22 18:27: 11 Yes 200mg 200 mg, Oral, QHSPRN, Starting on Sat12/23/23 at 1327, Until Discontinu ed, Routine, Constipati on [facility] magnesium hydroxide (MILK OF MAGNESIA) 400 mg/5 mL suspension 30 mL 12-22 18:27: 11 Yes 30mL 30 mL, Oral, QDAILYPRN, Starting on Sat12/23/23 at 1327, Until Discontinu ed, Routine, Constipati on [facility] metroNIDAZO LE 500 mg tablet 10-17 00:00: 00 10-25 04:59 :00 No [id number] 500mg Take 1 tablet by mouth 2 (two) times daily [id number]epa- fish ( GUMMIES) 400 mcg-35 mg- 25 mg-5 mg Chew 10-09 00:00: 00 02-15 00:00 :00 No [id number] 1{tbl} Take 1 tablet by mouth daily. [facility] PNV 67-iron ps-folate no.1-dha (VITAFOL ULTRA) 29 mg iron- 1 mg-200 mg Cap 09-11 00:00: 00 10-09 00:00 :00 No [id number] 1{each} Take 1 Each by mouth daily. [facility] proMETHazin e 25 mg tablet 08-20 00:00: 00 12-25 00:00 :00 No [id number] Take 1 tablet 2 hours prior to lab appointmen t [facility] traZODone 50 mg tablet 04-09 13:38: 27 Yes 50mg Take 1 tablet by mouth at bedtime. [facility] pantoprazol e 40 mg EC tablet 04-09 13:38: 14 04-09 00:00 :00 No 40mg Take 1 tablet by mouth daily. [facility] norethindro roseliaestrad ioL-iron ( 1.5/, 28,) 1.5 mg-30 mcg (21)/75 mg (7) tablet 04-09 00:00: 00 08-13 00:00 :00 No [id number] 1{tbl} Take 1 tablet by mouth daily. [facility] TAKE 1 TABLET TWICE A DAY NEEDED 2022-03 00:00: 00 08-06 00:00 :00 No 500 Sam Conner TAKE 5 ML EVERY 4 TO 6 HOURS NEEDED. 11-09 00:00: 00 08-06 00:00 :00 No [id number] Sam Conner TAKE 1 CAPSULE 3 TIMES DAILY NEEDED. 11-09 00:00: 00 08-06 00:00 :00 No 100 Sam Conner TAKE DIRECTED. 11-09 00:00: 00 08-06 00:00 :00 No Sam Conner pantoprazol e 40 mg EC tablet 10-18 09:31: 58 Yes 40mg Take 1 tablet by mouth daily. [facility] traZODone 50 mg tablet 10-18 09:31: 58 08-13 00:00 :00 No 50mg Take 1 tablet by mouth at bedtime. [facility] TAKE 1 TABLET BY MOUTH TWICE A DAY 10-18 00:00: 00 Yes Sam Conner pantoprazol e 40 mg EC tablet 10-18 00:00: 00 04-09 00:00 :00 No [id number] 40mg Take 1 tablet by mouth 2 (two) times daily. [facility] TAKE 1 TABLET DAILY. 10-12 00:00: 00 08-06 00:00 :00 No 40 Sam Conner TAKE ONE TABLET TWICE A DAY NEEDED 10-12 00:00: 00 08-06 00:00 :00 No 20 Sam Conner freya velozestrad ioL-iron (,) 1.5 mg-30 mcg (21)/75 mg (7) per tablet 09-28 00:00: 00 04-09 00:00 :00 No [id number] 1{tbl} Take 1 tablet by mouth daily. [facility] TAKE 1 CAPSULE TWICE DAILY. - 00:00: 00 08-06 00:00 :00 No 40 Sam Conner TAKE 2 TABLETS BY MOUTH TODAY, THEN TAKE 1 TABLET DAILY FOR 4 DAYS 05-23 00:00: 00 Yes Sam Conner TAKE 1 TABLET BY MOUTH EVERY 12 HOURS FOR 10 DAYS 3 00:00: 00 Yes Sam Conner medroxyPROG ESTERone (DEPO-PROVE RA) syringe 150 mg 04-18 18:15: 00 09-28 14:24 :25 No [id number] 150mg [facility] TAKE 1 TABLET BY MOUTH TWICE A DAY 04-12 00:00: 00 Yes Sam Conner metroNIDAZO LE 500 mg tablet 04-12 00:00: 00 09-28 00:00 :00 No [id number] 500mg Take 1 tablet by mouth 2 (two) times daily. [facility] No known medications 04-06 13:14: 44 No No known medication s [facility] Immunizations Ordered Immunization Name Filled Immunization Name Date Status Comments Source TDAP 2024-01-10 00:00:00 Completed [facility] Flu Injectable MDCK Pres-Free (FLUCELVAX) 2024-01-07 00:00:00 Completed Rho (d) Immune Globulin 2023-12-23 00:00:00 Completed [facility] PPD (TB) 2023-08-14 00:00:00 Completed [facility] PPD (TB) 2023-08-14 00:00:00 Completed [facility] PPD (TB) 2023-08-14 00:00:00 Completed [facility] PPD (TB) 2023-08-14 00:00:00 Completed [facility] PPD (TB) 2023-08-14 00:00:00 Completed [facility] PPD (TB) 2023-08-14 00:00:00 Completed [facility] Influenza Virus Vaccine Quad IM, Preserv and ABX Free 6 MO-64 YRS (FLUCELVAX) 2022-12-28 00:00:00 Completed [facility] Influenza Virus Vaccine Quad IM, Preserv and ABX Free 6 MO-64 YRS (FLUCELVAX) 2022-12-28 00:00:00 Completed [facility] Influenza Virus Vaccine Quad IM, Preserv and ABX Free 6 MO-64 YRS (FLUCELVAX) 2022-12-28 00:00:00 Completed [facility] Influenza Virus Vaccine Quad IM, Preserv and ABX Free 6 MO-64 YRS (FLUCELVAX) 2022-12-28 00:00:00 Completed [facility] Influenza Virus Vaccine Quad IM, Preserv and ABX Free 6 MO-64 YRS (FLUCELVAX) 2022-12-28 00:00:00 Completed [facility] Influenza Virus Vaccine Quad IM, Preserv and ABX Free 6 MO-64 YRS (FLUCELVAX) 2022-12-28 00:00:00 Completed [facility] Influenza Virus Vaccine Quad .5 mL IM 6+ MO 2022-04-05 00:00:00 Completed [facility] Influenza Virus Vaccine Quad .5 mL IM 6+ MO 2022-04-05 00:00:00 Completed [facility] Influenza Virus Vaccine Quad .5 mL IM 6+ MO 2022-04-05 00:00:00 Completed [facility] Influenza Virus Vaccine Quad .5 mL IM 6+ MO 2022-04-05 00:00:00 Completed [facility] Influenza Virus Vaccine Quad .5 mL IM 6+ MO 2022-04-05 00:00:00 Completed [facility] Influenza Virus Vaccine Quad .5 mL IM 6+ MO 2022-04-05 00:00:00 Completed [facility] Influenza Virus Vaccine Quad .5 mL IM 6+ MO 2022-04-05 00:00:00 Completed [facility] Influenza Virus Vaccine Quad .5 mL IM 6+ MO 2022-04-05 00:00:00 Completed [facility] Influenza Virus Vaccine Quad .5 mL IM 6+ MO (FLUZONE/FLULAVAL/F LUARIX) 2022-04-05 00:00:00 Completed [facility] Influenza Virus Vaccine Quad .5 mL IM 6+ MO (FLUZONE/FLULAVAL/F LUARIX) 2022-04-05 00:00:00 Completed [facility] Influenza Virus Vaccine Quad .5 mL IM 6+ MO (FLUZONE/FLULAVAL/F LUARIX) 2022-04-05 00:00:00 Completed [facility] Influenza Virus Vaccine Quad .5 mL IM 6+ MO 2022-04-05 00:00:00 Completed [facility] Influenza Virus Vaccine Quad .5 mL IM 6+ MO (FLUZONE/FLULAVAL/F LUARIX) 2022-04-05 00:00:00 Completed [facility] Influenza Virus Vaccine Quad .5 mL IM 6+ MO (FLUZONE/FLULAVAL/F LUARIX) 2022-04-05 00:00:00 Completed [facility] Influenza Virus Vaccine Quad .5 mL IM 6+ MO (FLUZONE/FLULAVAL/F LUARIX) 2022-04-05 00:00:00 Completed [facility] Influenza Virus Vaccine Quad .5 mL IM 6+ MO (FLUZONE/FLULAVAL/F LUARIX) Unknown Completed [facility] Influenza Virus Vaccine Quad IM, Preserv and ABX Free 6 MO-64 YRS (FLUCELVAX) Unknown Completed [facility] Influenza Virus Vaccine Quad .5 mL IM 6+ MO (FLUZONE/FLULAVAL/F LUARIX) Unknown Completed [facility] Influenza Virus Vaccine Quad IM, Preserv and ABX Free 6 MO-64 YRS (FLUCELVAX) Unknown Completed [facility] Influenza Virus Vaccine Quad .5 mL IM 6+ MO (FLUZONE/FLULAVAL/F LUARIX) Unknown Completed [facility] Influenza Virus Vaccine Quad IM, Preserv and ABX Free 6 MO-64 YRS (FLUCELVAX) Unknown Completed [facility] Influenza Virus Vaccine Quad .5 mL IM 6+ MO (FLUZONE/FLULAVAL/F LUARIX) Unknown Completed [facility] Influenza Virus Vaccine Quad IM, Preserv and ABX Free 6 MO-64 YRS (FLUCELVAX) Unknown Completed [facility] PPD (TB) Unknown Completed [facility] Influenza Virus Vaccine Quad .5 mL IM 6+ MO (FLUZONE/FLULAVAL/F LUARIX) Unknown Completed [facility] Influenza Virus Vaccine Quad IM, Preserv and ABX Free 6 MO-64 YRS (FLUCELVAX) Unknown Completed [facility] PPD (TB) Unknown Completed [facility] Influenza Virus Vaccine Quad .5 mL IM 6+ MO (FLUZONE/FLULAVAL/F LUARIX) Unknown Completed [facility] Influenza Virus Vaccine Quad IM, Preserv and ABX Free 6 MO-64 YRS (FLUCELVAX) Unknown Completed [facility] PPD (TB) Unknown Completed [facility] Influenza Virus Vaccine Quad .5 mL IM 6+ MO (FLUZONE/FLULAVAL/F LUARIX) Unknown Completed [facility] Influenza Virus Vaccine Quad IM, Preserv and ABX Free 6 MO-64 YRS (FLUCELVAX) Unknown Completed [facility] PPD (TB) Unknown Completed [facility] Influenza Virus Vaccine Quad .5 mL IM 6+ MO (FLUZONE/FLULAVAL/F LUARIX) Unknown Completed [facility] Influenza Virus Vaccine Quad IM, Preserv and ABX Free 6 MO-64 YRS (FLUCELVAX) Unknown Completed [facility] PPD (TB) Unknown Completed [facility] Influenza Virus Vaccine Quad .5 mL IM 6+ MO (FLUZONE/FLULAVAL/F LUARIX) Unknown Completed [facility] Influenza Virus Vaccine Quad IM, Preserv and ABX Free 6 MO-64 YRS (FLUCELVAX) Unknown Completed [facility] PPD (TB) Unknown Completed [facility] Influenza Virus Vaccine Quad .5 mL IM 6+ MO (FLUZONE/FLULAVAL/F LUARIX) Unknown Completed [facility] Influenza Virus Vaccine Quad IM, Preserv and ABX Free 6 MO-64 YRS (FLUCELVAX) Unknown Completed [facility] PPD (TB) Unknown Completed [facility] Influenza Virus Vaccine Quad .5 mL IM 6+ MO (FLUZONE/FLULAVAL/F LUARIX) Unknown Completed [facility] Influenza Virus Vaccine Quad IM, Preserv and ABX Free 6 MO-64 YRS (FLUCELVAX) Unknown Completed [facility] PPD (TB) Unknown Completed [facility] Influenza Virus Vaccine Quad .5 mL IM 6+ MO (FLUZONE/FLULAVAL/F LUARIX) Unknown Completed [facility] Influenza Virus Vaccine Quad IM, Preserv and ABX Free 6 MO-64 YRS (FLUCELVAX) Unknown Completed [facility] PPD (TB) Unknown Completed [facility] Influenza Virus Vaccine Quad .5 mL IM 6+ MO (FLUZONE/FLULAVAL/F LUARIX) Unknown Completed [facility] Influenza Virus Vaccine Quad IM, Preserv and ABX Free 6 MO-64 YRS (FLUCELVAX) Unknown Completed [facility] PPD (TB) Unknown Completed [facility] Influenza Virus Vaccine Quad .5 mL IM 6+ MO (FLUZONE/FLULAVAL/F LUARIX) Unknown Completed [facility] Influenza Virus Vaccine Quad IM, Preserv and ABX Free 6 MO-64 YRS (FLUCELVAX) Unknown Completed [facility] PPD (TB) Unknown Completed [facility] Influenza Virus Vaccine Quad .5 mL IM 6+ MO (FLUZONE/FLULAVAL/F LUARIX) Unknown Completed [facility] Influenza Virus Vaccine Quad IM, Preserv and ABX Free 6 MO-64 YRS (FLUCELVAX) Unknown Completed [facility] PPD (TB) Unknown Completed [facility] Influenza Virus Vaccine Quad .5 mL IM 6+ MO (FLUZONE/FLULAVAL/F LUARIX) Unknown Completed [facility] Influenza Virus Vaccine Quad IM, Preserv and ABX Free 6 MO-64 YRS (FLUCELVAX) Unknown Completed [facility] PPD (TB) Unknown Completed [facility] Influenza Virus Vaccine Quad .5 mL IM 6+ MO (FLUZONE/FLULAVAL/F LUARIX) Unknown Completed [facility] Influenza Virus Vaccine Quad IM, Preserv and ABX Free 6 MO-64 YRS (FLUCELVAX) Unknown Completed [facility] PPD (TB) Unknown Completed [facility] Influenza Virus Vaccine Quad .5 mL IM 6+ MO (FLUZONE/FLULAVAL/F LUARIX) Unknown Completed [facility] Influenza Virus Vaccine Quad IM, Preserv and ABX Free 6 MO-64 YRS (FLUCELVAX) Unknown Completed [facility] PPD (TB) Unknown Completed [facility] Influenza Virus Vaccine Quad .5 mL IM 6+ MO (FLUZONE/FLULAVAL/F LUARIX) Unknown Completed [facility] Influenza Virus Vaccine Quad IM, Preserv and ABX Free 6 MO-64 YRS (FLUCELVAX) Unknown Completed [facility] PPD (TB) Unknown Completed [facility] Influenza Virus Vaccine Quad .5 mL IM 6+ MO (FLUZONE/FLULAVAL/F LUARIX) Unknown Completed [facility] Influenza Virus Vaccine Quad IM, Preserv and ABX Free 6 MO-64 YRS (FLUCELVAX) Unknown Completed [facility] PPD (TB) Unknown Completed [facility] Influenza Virus Vaccine Quad .5 mL IM 6+ MO (FLUZONE/FLULAVAL/F LUARIX) Unknown Completed [facility] Influenza Virus Vaccine Quad IM, Preserv and ABX Free 6 MO-64 YRS (FLUCELVAX) Unknown Completed [facility] PPD (TB) Unknown Completed [facility] Influenza Virus Vaccine Quad .5 mL IM 6+ MO (FLUZONE/FLULAVAL/F LUARIX) Unknown Completed [facility] Influenza Virus Vaccine Quad IM, Preserv and ABX Free 6 MO-64 YRS (FLUCELVAX) Unknown Completed [facility] PPD (TB) Unknown Completed [facility] Influenza Virus Vaccine Quad .5 mL IM 6+ MO (FLUZONE/FLULAVAL/F LUARIX) Unknown Completed [facility] Influenza Virus Vaccine Quad IM, Preserv and ABX Free 6 MO-64 YRS (FLUCELVAX) Unknown Completed [facility] PPD (TB) Unknown Completed [facility] Influenza Virus Vaccine Quad .5 mL IM 6+ MO (FLUZONE/FLULAVAL/F LUARIX) Unknown Completed [facility] Influenza Virus Vaccine Quad IM, Preserv and ABX Free 6 MO-64 YRS (FLUCELVAX) Unknown Completed [facility] PPD (TB) Unknown Completed [facility] Influenza Virus Vaccine Quad .5 mL IM 6+ MO (FLUZONE/FLULAVAL/F LUARIX) Unknown Completed [facility] Influenza Virus Vaccine Quad IM, Preserv and ABX Free 6 MO-64 YRS (FLUCELVAX) Unknown Completed [facility] PPD (TB) Unknown Completed [facility] Influenza Virus Vaccine Quad .5 mL IM 6+ MO (FLUZONE/FLULAVAL/F LUARIX) Unknown Completed [facility] Influenza Virus Vaccine Quad IM, Preserv and ABX Free 6 MO-64 YRS (FLUCELVAX) Unknown Completed [facility] PPD (TB) Unknown Completed [facility] Influenza Virus Vaccine Quad .5 mL IM 6+ MO (FLUZONE/FLULAVAL/F LUARIX) Unknown Completed [facility] Influenza Virus Vaccine Quad IM, Preserv and ABX Free 6 MO-64 YRS (FLUCELVAX) Unknown Completed [facility] PPD (TB) Unknown Completed [facility] Vital Signs Vital Name Observation Time Observation Value Comments S ource Systolic blood pressure 2024-04-09 16:21:00 133 mm[Hg] [facility] acute hospital Diastolic blood pressure 2024-04-09 16:21:00 71 mm[Hg] General acute hospital Heart rate 2024-04-09 16:21:00 67 /min [facility] Body temperature 2024-04-09 16:21:00 36.61 Isabelle [facility] Respiratory rate 2024-04-09 16:21:00 18 /min [facility] Body height 2024-04-09 16:21:00 154.9 cm [facility] Body weight 2024-04-09 16:21:00 54.159 kg [facility] BMI 2024-04-09 16:21:00 22.56 kg/m2 [facility] Systolic blood pressure 2024-03-26 16:26:00 130 mm[Hg] General acute hospital Diastolic blood pressure 2024-03-26 16:26:00 88 mm[Hg] General acute hospital Heart rate 2024-03-26 16:26:00 76 /min [facility] Body temperature 2024-03-26 16:26:00 36.11 Isabelle [facility] Respiratory rate 2024-03-26 16:26:00 18 /min [facility] Body height 2024-03-26 16:26:00 154.9 cm [facility] Body weight 2024-03-26 16:26:00 55.157 kg [facility] BMI 2024-03-26 16:26:00 22.98 kg/m2 [facility] Systolic blood pressure 2024-03-05 17:36:00 125 mm[Hg] manual [facility] acute hospital Diastolic blood pressure 2024-03-05 17:36:00 80 mm[Hg] manual [facility] acute hospital Heart rate 2024-03-05 17:31:00 78 /min [facility] Body temperature 2024-03-05 17:31:00 36.89 Isabelle [facility] Respiratory rate 2024-03-05 17:31:00 17 /min [facility] Body height 2024-03-05 17:31:00 154.9 cm [facility] Body weight 2024-03-05 17:31:00 56.11 kg [facility] BMI 2024-03-05 17:31:00 23.37 kg/m2 [facility] Systolic blood pressure 2024-02-19 16:42:00 142 mm[Hg] General acute hospital Diastolic blood pressure 2024-02-19 16:42:00 90 mm[Hg] General acute hospital Heart rate 2024-02-19 16:41:00 77 /min [facility] Body temperature 2024-02-19 16:41:00 37.11 Isabelle [facility] Respiratory rate 2024-02-19 16:41:00 18 /min [facility] Body height 2024-02-19 16:41:00 154.9 cm [facility] Body weight 2024-02-19 16:41:00 58.287 kg [facility] BMI 2024-02-19 16:41:00 24.28 kg/m2 [facility] Systolic blood pressure 2024-02-16 22:30:00 129 mm[Hg] General acute hospital Diastolic blood pressure 2024-02-16 22:30:00 90 mm[Hg] General acute hospital Heart rate 2024-02-16 22:30:00 84 /min [facility] Body temperature 2024-02-16 22:30:00 36.89 Isabelle [facility] Respiratory rate 2024-02-16 22:30:00 18 /min [facility] Oxygen saturation in Arterial blood by Pulse oximetry 2024-02-16 22:30:00 99 /min [facility] acute hospital Body weight 2024-02-13 04:35:00 60.555 kg [facility] BMI 2024-02-13 04:35:00 25.22 kg/m2 [facility] Body height 2024-01-21 21:11:00 154.9 cm [facility] Systolic blood pressure 2024-02-13 19:36:00 149 mm[Hg] General acute hospital Diastolic blood pressure 2024-02-13 19:36:00 98 mm[Hg] General acute hospital Heart rate 2024-02-13 19:36:00 66 /min [facility] Body temperature 2024-02-13 19:36:00 36.78 Isabelle [facility] Respiratory rate 2024-02-13 19:36:00 20 /min [facility] Oxygen saturation in Arterial blood by Pulse oximetry 2024-02-13 19:36:00 100 /min [facility] acute hospital Body weight 2024-02-13 04:35:00 60.555 kg [facility] BMI 2024-02-13 04:35:00 25.22 kg/m2 [facility] Body height 2024-01-21 21:11:00 154.9 cm [facility] Heart rate 2024-01-18 18:00:00 80 /min [facility] Oxygen saturation in Arterial blood by Pulse oximetry 2024-01-18 18:00:00 98 /min [facility] acute hospital Systolic blood pressure 2024-01-18 16:50:00 128 mm[Hg] General acute hospital Diastolic blood pressure 2024-01-18 16:50:00 60 mm[Hg] General acute hospital Body temperature 2024-01-18 16:50:00 36.61 Isabelle [facility] Respiratory rate 2024-01-18 16:50:00 18 /min [facility] Body height 2024-01-09 16:48:00 154.9 cm [facility] Body weight 2024-01-09 16:48:00 60.328 kg [facility] BMI 2024-01-09 16:48:00 25.13 kg/m2 [facility] Systolic blood pressure 2024-01-07 20:26:00 120 mm[Hg] General acute hospital Diastolic blood pressure 2024-01-07 20:26:00 83 mm[Hg] General acute hospital Heart rate 2024-01-07 20:26:00 78 /min [facility] Body temperature 2024-01-07 20:26:00 36.33 Isabelle [facility] Respiratory rate 2024-01-07 20:26:00 18 /min [facility] Body height 2024-01-07 20:26:00 154.9 cm [facility] Body weight 2024-01-07 20:26:00 59.421 kg [facility] BMI 2024-01-07 20:26:00 24.75 kg/m2 [facility] Systolic blood pressure 2024-01-03 00:30:00 113 mm[Hg] General acute hospital Diastolic blood pressure 2024-01-03 00:30:00 79 mm[Hg] General acute hospital Heart rate 2024-01-03 00:30:00 75 /min [facility] Respiratory rate 2024-01-03 00:30:00 16 /min [facility] Oxygen saturation in Arterial blood by Pulse oximetry 2024-01-03 00:30:00 100 /min [facility] acute hospital Body height 2024-01-02 20:08:00 154.9 cm [facility] Body weight 2024-01-02 20:08:00 58.378 kg [facility] BMI 2024-01-02 20:08:00 24.32 kg/m2 [facility] Systolic blood pressure 2024-01-02 13:30:00 120 mm[Hg] General acute hospital Diastolic blood pressure 2024-01-02 13:30:00 83 mm[Hg] General acute hospital Heart rate 2024-01-02 13:30:00 75 /min [facility] Body temperature 2024-01-02 13:30:00 36.56 Isabelle [facility] Respiratory rate 2024-01-02 13:30:00 16 /min [facility] Body height 2024-01-02 13:30:00 154.9 cm [facility] Body weight 2024-01-02 13:30:00 58.287 kg [facility] BMI 2024-01-02 13:30:00 24.28 kg/m2 [facility] Systolic blood pressure 2023-12-31 18:15:00 128 mm[Hg] General acute hospital Diastolic blood pressure 2023-12-31 18:15:00 79 mm[Hg] General acute hospital Heart rate 2023-12-31 18:15:00 86 /min [facility] 2023-12-31 18:15:00 36.78 Isabelle [facility] Respiratory rate 2023-12-31 18:15:00 17 /min [facility] Body height 2023-12-31 18:15:00 154.9 cm [facility] Body weight 2023-12-31 18:15:00 58.423 kg [facility] BMI 2023-12-31 18:15:00 24.34 kg/m2 [facility] Heart rate 2023-12-26 20:40:00 69 /min [facility] Oxygen saturation in Arterial blood by Pulse oximetry 2023-12-26 20:40:00 100 /min [facility] acute hospital Systolic blood pressure 2023-12-26 20:32:00 129 mm[Hg] General acute hospital Diastolic blood pressure 2023-12-26 20:32:00 70 mm[Hg] General acute hospital Body temperature 2023-12-26 12:00:00 36.61 Isabelle [facility] Respiratory rate 2023-12-26 12:00:00 18 /min [facility] Body height 2023-12-23 18:17:00 154.9 cm [facility] Body weight 2023-12-23 18:17:00 56.7 kg [facility] BMI 2023-12-23 18:17:00 23.62 kg/m2 [facility] Systolic blood pressure 2023-12-05 19:56:00 118 mm[Hg] General acute hospital Diastolic blood pressure 2023-12-05 19:56:00 72 mm[Hg] General acute hospital Heart rate 2023-12-05 19:56:00 73 /min [facility] Body temperature 2023-12-05 19:56:00 36.56 Isabelle [facility] Respiratory rate 2023-12-05 19:56:00 18 /min [facility] Body height 2023-12-05 19:56:00 154.9 cm [facility] Body weight 2023-12-05 19:56:00 57.607 kg [facility] BMI 2023-12-05 19:56:00 24.00 kg/m2 [facility] Systolic blood pressure 2023-11-07 20:52:00 105 mm[Hg] General acute hospital Diastolic blood pressure 2023-11-07 20:52:00 73 mm[Hg] General acute hospital Heart rate 2023-11-07 20:52:00 76 /min [facility] Body temperature 2023-11-07 20:52:00 36.89 Isabelle [facility] Respiratory rate 2023-11-07 20:52:00 17 /min [facility] Body height 2023-11-07 20:52:00 154.9 cm [facility] Body weight 2023-11-07 20:52:00 54.84 kg [facility] BMI 2023-11-07 20:52:00 22.84 kg/m2 [facility] Systolic blood pressure 2023-10-16 19:44:00 99 mm[Hg] General acute hospital Diastolic blood pressure 2023-10-16 19:44:00 67 mm[Hg] General acute hospital Heart rate 2023-10-16 19:44:00 72 /min [facility] Body temperature 2023-10-16 19:44:00 36.56 Isabelle [facility] Respiratory rate 2023-10-16 19:44:00 18 /min [facility] Body height 2023-10-16 19:44:00 154.9 cm [facility] Body weight 2023-10-16 19:44:00 53.797 kg [facility] BMI 2023-10-16 19:44:00 22.41 kg/m2 [facility] Systolic blood pressure 2023-10-10 20:39:00 111 mm[Hg] General acute hospital Diastolic blood pressure 2023-10-10 20:39:00 73 mm[Hg] General acute hospital Heart rate 2023-10-10 20:39:00 66 /min [facility] Body temperature 2023-10-10 20:39:00 36.78 Isabelle [facility] Respiratory rate 2023-10-10 20:39:00 18 /min [facility] Body height 2023-10-10 20:39:00 154.9 cm [facility] Body weight 2023-10-10 20:39:00 53.751 kg [facility] BMI 2023-10-10 20:39:00 22.39 kg/m2 [facility] Systolic blood pressure 2023-09-12 20:21:00 105 mm[Hg] General acute hospital Diastolic blood pressure 2023-09-12 20:21:00 62 mm[Hg] General acute hospital Heart rate 2023-09-12 20:21:00 71 /min [facility] Body temperature 2023-09-12 20:21:00 36.33 Isabelle [facility] Respiratory rate 2023-09-12 20:21:00 19 /min [facility] Body height 2023-09-12 20:21:00 154.9 cm [facility] Body weight 2023-09-12 20:21:00 53.116 kg [facility] BMI 2023-09-12 20:21:00 22.13 kg/m2 [facility] Body temperature 2023-08-16 20:02:00 36.67 Isabelle [facility] Systolic blood pressure 2023-08-14 18:35:00 107 mm[Hg] General acute hospital Diastolic blood pressure 2023-08-14 18:35:00 63 mm[Hg] General acute hospital Heart rate 2023-08-14 18:35:00 70 /min [facility] Body temperature 2023-08-14 18:35:00 36.33 Isabelle [facility] Respiratory rate 2023-08-14 18:35:00 18 /min [facility] Body height 2023-08-14 18:35:00 154.9 cm [facility] Body weight 2023-08-14 18:35:00 53.071 kg [facility] BMI 2023-08-14 18:35:00 22.11 kg/m2 [facility] Systolic blood pressure 2023-04-09 19:33:00 114 mm[Hg] General acute hospital Diastolic blood pressure 2023-04-09 19:33:00 66 mm[Hg] General acute hospital Heart rate 2023-04-09 19:33:00 74 /min [facility] Body temperature 2023-04-09 19:33:00 36.56 Isabelle [facility] Respiratory rate 2023-04-09 19:33:00 18 /min [facility] Body height 2023-04-09 19:33:00 154.9 cm [facility] Body weight 2023-04-09 19:33:00 53.887 kg [facility] BMI 2023-04-09 19:33:00 22.45 kg/m2 [facility] Systolic blood pressure 2022-12-28 13:42:00 111 mm[Hg] General acute hospital Diastolic blood pressure 2022-12-28 13:42:00 80 mm[Hg] General acute hospital Heart rate 2022-12-28 13:42:00 69 /min [facility] Body temperature 2022-12-28 13:42:00 36.78 Isabelle [facility] Respiratory rate 2022-12-28 13:42:00 18 /min [facility] Body height 2022-12-28 13:42:00 154.9 cm [facility] Body weight 2022-12-28 13:42:00 51.71 kg [facility] BMI 2022-12-28 13:42:00 21.54 kg/m2 [facility] Systolic blood pressure 2022-10-18 14:29:00 117 mm[Hg] General acute hospital Diastolic blood pressure 2022-10-18 14:29:00 70 mm[Hg] General acute hospital Heart rate 2022-10-18 14:29:00 64 /[facility] Body temperature 2022-10-18 14:29:00 36.94 Isabelle [facility] Respiratory rate 2022-10-18 14:29:00 16 /min [facility] Body height 2022-10-18 14:29:00 154.9 cm [facility] Body weight 2022-10-18 14:29:00 51.846 kg [facility] BMI 2022-10-18 14:29:00 21.60 kg/m2 [facility] Oxygen saturation in Arterial blood by Pulse oximetry 2022-10-18 14:29:00 100 /min General acute hospital Systolic blood pressure 2022-09-28 13:54:00 120 mm[Hg] General acute hospital Diastolic blood pressure 2022-09-28 13:54:00 75 mm[Hg] General acute hospital Heart rate 2022-09-28 13:54:00 81 /min [facility] Body temperature 2022-09-28 13:54:00 36.56 Isabelle [facility] Respiratory rate 2022-09-28 13:54:00 18 /min [facility] Body height 2022-09-28 13:54:00 154.9 cm [facility] Body weight 2022-09-28 13:54:00 50.973 kg [facility] BMI 2022-09-28 13:54:00 21.23 kg/m2 [facility] Systolic blood pressure 2022-07-11 16:23:00 133 mm[Hg] General acute hospital Diastolic blood pressure 2022-07-11 16:23:00 85 mm[Hg] General acute hospital Heart rate 2022-07-11 16:23:00 64 /min [facility] Body temperature 2022-07-11 16:23:00 36.89 Isabelle [facility] Respiratory rate 2022-07-11 16:23:00 16 /min [facility] Body height 2022-07-11 16:23:00 154.9 cm [facility] Body weight 2022-07-11 16:23:00 49.102 kg [facility] BMI 2022-07-11 16:23:00 20.45 kg/m2 [facility] Systolic blood pressure 2022-04-18 17:06:00 114 mm[Hg] General acute hospital Diastolic blood pressure 2022-04-18 17:06:00 76 mm[Hg] General acute hospital Heart rate 2022-04-18 17:06:00 73 /min [facility] Body temperature 2022-04-18 17:06:00 36.72 Isabelle [facility] Respiratory rate 2022-04-18 17:06:00 18 /min [facility] Body height 2022-04-18 17:06:00 154.9 cm [facility] Body weight 2022-04-18 17:06:00 53.025 kg [facility] BMI 2022-04-18 17:06:00 22.09 kg/m2 [facility] Systolic blood pressure 2022-04-05 19:54:00 122 mm[Hg] General acute hospital Diastolic blood pressure 2022-04-05 19:54:00 74 mm[Hg] General acute hospital Heart rate 2022-04-05 19:54:00 74 /min [facility] Body temperature 2022-04-05 19:54:00 37.06 Isabelle [facility] Respiratory rate 2022-04-05 19:54:00 16 /min [facility] Body height 2022-04-05 19:54:00 157 cm [facility] Body weight 2022-04-05 19:54:00 52.249 kg [facility] BMI 2022-04-05 19:54:00 21.20 kg/m2 [facility] Systolic blood pressure 2024-04-09 16:21:00 133 mm[Hg] [facility] Diastolic blood pressure 2024-04-09 16:21:00 71 mm[Hg] General acute hospital Heart rate 2024-04-09 16:21:00 67 /min [facility] Body temperature 2024-04-09 16:21:00 36.61 Isabelle [facility] Respiratory rate 2024-04-09 16:21:00 18 /min [facility] Body height 2024-04-09 16:21:00 154.9 cm [facility] Body weight 2024-04-09 16:21:00 54.159 kg [facility] BMI 2024-04-09 16:21:00 22.56 kg/m2 [facility] Oxygen saturation in Arterial blood by Pulse oximetry 2024-02-16 22:30:00 99 /min General acute hospital Systolic blood pressure 2024-02-11 05:27:00 116 mm[Hg] General acute hospital Diastolic blood pressure 2024-02-11 05:27:00 74 mm[Hg] General acute hospital Heart rate 2024-02-11 05:27:00 86 /[facility] Body [facility] 2024-02-11 05:27:00 36.33 Isabelle [facility] Respiratory rate 2024-02-11 05:27:00 17 /min [facility] Oxygen saturation in Arterial blood by Pulse oximetry 2024-02-11 05:27:00 96 /min General acute hospital Body weight 2024-02-11 01:24:00 60.737 kg [facility] BMI 2024-02-11 01:24:00 25.30 kg/m2 [facility] Body height 2024-01-21 21:11:00 154.9 cm [facility] BP Systolic 2023-08-08 13:58:00 92 mm[Hg] Step mert Conner BP Diastolic 2023-08-08 13:58:00 95 mm[Hg] Carson phen F Ubaldo Weight Measured 2023-08-08 13:58:00 118.20 pounds Sam F Ubaldo Height Measured 2023-08-08 13:58:00 62.20 inches Sam F Ubaldo Body Temperature 2023-08-08 13:58:00 97.40 degrees Sam F Ubaldo Heart Rate 2023-08-08 13:58:00 68.00 /min Sridevi en F Ubaldo Respiratory Rate 2023-08-08 13:58:00 18.00 /min Sam F Ubaldo BP Systolic 2023-08-08 13:31:00 92 mm[Hg] Step hen F Ubaldo BP Diastolic 2023-08-08 13:31:00 95 mm[Hg] Carson phen F Ubaldo Weight Measured 2023-08-08 13:31:00 118.20 pounds Sam F Ubaldo Height Measured 2023-08-08 13:31:00 62.20 inches Sam F Ubaldo Body Temperature 2023-08-08 13:31:00 97.40 degrees Sam F Ubaldo Heart Rate 2023-08-08 13:31:00 68.00 /min Sridevi en F Ubaldo Respiratory Rate 2023-08-08 13:31:00 18.00 /min Sam F Ubaldo BP Systolic 2023-07-22 15:00:00 111 mm[Hg] Step hen F Ubaldo BP Diastolic 2023-07-22 15:00:00 71 mm[Hg] Carson phen F Ubaldo Weight Measured 2023-07-22 15:00:00 116.00 pounds Sam F Ubaldo Height Measured 2023-07-22 15:00:00 62.20 inches Sam F Ubaldo Body Temperature 2023-07-22 15:00:00 98.20 degrees Sam F Ubaldo Heart Rate 2023-07-22 15:00:00 65.00 /min Sridevi en F Ubaldo Respiratory Rate 2023-07-22 15:00:00 19.00 /min Sam F Ubaldo Height Measured 2023-06-19 11:13:00 62.20 inches Sam F Ubaldo Body Temperature 2023-06-19 11:13:00 98.40 degrees Sam F Ubaldo Heart Rate 2023-06-19 11:13:00 73.00 /min Sridevi en F Ubaldo Respiratory Rate 2023-06-19 11:13:00 19.00 /min Sam F Ubaldo BP Systolic 2023-06-19 11:13:00 112 mm[Hg] Step hen F Ubaldo BP Diastolic 2023-06-19 11:13:00 74 mm[Hg] Carson phen F Ubaldo Weight Measured 2023-06-19 11:13:00 116.40 pounds Sam F Ubaldo BP Systolic 2023-02-22 13:44:00 116 mm[Hg] Step hen F Ubaldo BP Diastolic 2023-02-22 13:44:00 78 mm[Hg] Carson phen F Ubaldo Weight Measured 2023-02-22 13:44:00 115.00 pounds Sam F Ubaldo Height Measured 2023-02-22 13:44:00 62.20 inches Sam F Ubaldo Body Temperature 2023-02-22 13:44:00 98.30 degrees Sam F Ubaldo Heart Rate 2023-02-22 13:44:00 64.00 /min Sridevi en F Ubaldo Respiratory Rate 2023-02-22 13:44:00 16.00 /min Sam F Ubaldo BP Systolic 2022-11-09 10:08:00 130 mm[Hg] Step hen F Ubaldo BP Diastolic 2022-11-09 10:08:00 76 mm[Hg] Carson phen F Ubaldo Weight Measured 2022-11-09 10:08:00 111.80 pounds Sam F Ubaldo Height Measured 2022-11-09 10:08:00 62.20 inches Sam F Ubaldo Body Temperature 2022-11-09 10:08:00 98.00 degrees Sam F Ubaldo Heart Rate 2022-11-09 10:08:00 76.00 /min Sridevi en F Ubaldo Respiratory Rate 2022-11-09 10:08:00 Sam F Ubaldo BP Systolic 2022-10-12 13:53:00 109 mm[Hg] Step hen F Ubaldo BP Diastolic 2022-10-12 13:53:00 71 mm[Hg] Carson phen F Ubaldo Weight Measured 2022-10-12 13:53:00 115.00 pounds Sam F Ubaldo Height Measured 2022-10-12 13:53:00 62.20 inches Sam F Ubaldo Body Temperature 2022-10-12 13:53:00 98.20 degrees Sam F Ubaldo Heart Rate 2022-10-12 13:53:00 76.00 /min Sridevi en F Ubaldo Respiratory Rate 2022-10-12 13:53:00 19.00 /min Sam F Ubaldo BP Systolic 2022-07-30 14:28:00 133 mm[Hg] Step hen F Ubaldo BP Diastolic 2022-07-30 14:28:00 79 mm[Hg] Carson phen F Ubaldo Weight Measured 2022-07-30 14:28:00 108.40 pounds Sam F Ubaldo Height Measured 2022-07-30 14:28:00 62.20 inches Sam F Ubaldo Body Temperature 2022-07-30 14:28:00 98.10 degrees Sam F Ubaldo Heart Rate 2022-07-30 14:28:00 65.00 /min Sridevi en F Ubaldo Respiratory Rate 2022-07-30 14:28:00 Sam F Ubaldo BP Systolic 2022-07-02 08:16:00 118 mm[Hg] Step hen F Ubaldo BP Diastolic 2022-07-02 08:16:00 80 mm[Hg] Carson phen F Ubaldo Weight Measured 2022-07-02 08:16:00 110.40 pounds Sam F Ubaldo Height Measured 2022-07-02 08:16:00 62.20 inches Sam F Ubaldo Body Temperature 2022-07-02 08:16:00 98.30 degrees Sam F Ubaldo Heart Rate 2022-07-02 08:16:00 87.00 /min Sridevi en F Ubaldo Respiratory Rate 2022-07-02 08:16:00 18.00 /min Sam F Ubaldo BP Systolic 2022-06-25 10:10:00 130 mm[Hg] Step hen F Ubaldo BP Diastolic 2022-06-25 10:10:00 88 mm[Hg] Carson phen F Ubaldo Weight Measured 2022-06-25 10:10:00 109.40 pounds Sam F Ubaldo Height Measured 2022-06-25 10:10:00 62.20 inches Sam F Ubaldo Body Temperature 2022-06-25 10:10:00 98.60 degrees Sam F Ubaldo Heart Rate 2022-06-25 10:10:00 63.00 /min Sridevi en F Ubaldo Respiratory Rate 2022-06-25 10:10:00 19.00 /min Sam F Ubaldo Procedures Procedure Date / Time Performed Performing Clinician Source CBC WITH DIFF 2024-03-26 17:37:00 [facility] THYROID STIMULATING HORMONE 2024-03-26 [facility] 17:37[facility]00 [facility] & CHLAMYDIA AMPLIFIED ASSAY 2024-03-26 17:37:00 Shaka [facility] SYPHILIS IGG/IGM 2024-03-26 17:37:00 [facility]AB WITH REFLEX 2024-03-26 [facility] 2024-03-26 16:56:00 Shaka [facility] POCT TEST 2024-03-26 16:56:00 Shaka [facility] POCT URINALYSIS 2024-03-05 17:36:00 AkinEduardo ferguson [facility] POCT URINALYSIS 2024-03-05 17:36:00 AkinEduardo ferguson [facility] URINALYSIS 2024-02-16 20:47:00 Jonathan Hay [facility] PROTEIN CREAT RATIO URINE RANDOM 2024-02-16 20:47:00 Brittany Hay [facility] PROTEIN CREAT RATIO URINE RANDOM 2024-02-16 20:47:00 Brittany Hay [facility] URINALYSIS 2024-02-16 20:47:00 Jonathan Hay [facility] SGOT (ASPARTATE AMINO TRANSFER) 2024-02-16 20:37:00 Brittany Hay [facility] CREATININE 2024-02-16 20:37:00 Jonathan Hay [facility] ALANINE AMINO TRANSFERASE(SGPT 2024-02-16 20:37:00 Brittany Hay [facility] LACTATE DEHYDROGENASE 2024-02-16 20:37:00 Brittany Metzger [facility] URIC ACID 2024-02-16 20:37:00 Jonathan Hay [facility] CBC WITH DIFF 2024-02-16 20:37:00 Jonathan Hay [facility] CBC WITH DIFF 2024-02-16 20:37:00 Jonathan Hay [facility] URIC ACID 2024-02-16 20:37:00 Jonathan Hay [facility] CREATININE 2024-02-16 20:37:00 Jonathan Hay Marizol [facility] SGOT (ASPARTATE AMINO TRANSFER) 2024-02-16 20:37:00 Brittany Hay [facility] ALANINE AMINO TRANSFERASE(SGPT 2024-02-16 20:37:00 Brittany Hay [facility] LACTATE DEHYDROGENASE 2024-02-16 20:37:00 Brittany Metzger [facility] CBC WITH DIFF 2024-02-14 10:18:00 [facility] 2024-02-14 10:18:00 [facility] WITH DIFF 2024-02-14 10:18:00 Albert Gordon Un [facility] HB -MATERNAL HEMORRHAGE SCREEN 2024-02-14 04:09:00 Marshall Mccarty [facility] HB -MATERNAL HEMORRHAGE SCREEN 2024-02-14 04:09:00 Marshall Mccarty [facility] HB -MATERNAL HEMORRHAGE SCREEN 2024-02-14 04:09:00 Marshall Mccarty [facility] VENOUS CORD GAS 2024-02-13 17:23:00 Junito Neff in [facility] VENOUS CORD GAS 2024-02-13 17:23:00 Junito Neff in [facility] VENOUS CORD GAS 2024-02-13 17:23:00 Junito Neff in [facility] CENTRAL NEURAXIAL BLOCK 2024-02-13 17:04:00 Florian De La Vega [facility] [id number] - [place] OB ANTEPARTUM CARE DLVR & 2024-02-13 16:24:00 Mendiola, Jorge [facility] [id number] - [place] OB ANTEPARTUM CARE DLVR & 2024-02-13 16:24:00 Jorge Mendiola [facility] [id number] - [place] OB ANTEPARTUM CARE DLVR & 2024-02-13 16:24:00 MauryJorge [facility] EXTRA TUBE LAV 2024-02-13 14:46:00 Tara Cotter [facility] EXTRA TUBE LAV 2024-02-13 14:46:00 Tara Cotter [facility] EXTRA TUBE LAV 2024-02-13 14:46:00 Tara Cotter [facility] HEPATITIS B SURFACE ANTIGEN 2024-02-13 14:31[facility]00 [facility] 2024-02-13 14:31:00 [facility] 1/2 AG-AB WITH REFLEX 2024-02-13 14:31:00 [facility] SYPHILIS IGG/IGM 2024-02-13 14:31:00 Aleyda Lopez [facility] HEPATITIS B SURFACE ANTIGEN 2024-02-13 14:31:00 Aleyda Lopez [facility] HCV ANTIBODY 2024-02-13 14:31:00 Aleyda Lopez [facility] HIV 1/2 AG-AB WITH REFLEX 2024-02-13 14:31:00 Aleyda Lopez [facility] SYPHILIS IGG/IGM 2024-02-13 14:31:00 Aleyda Lopez [facility] HEPATITIS B SURFACE ANTIGEN 2024-02-13 14:31:00 Aleyda Lopez [facility] SYPHILIS IGG/IGM 2024-02-13 14:31:00 Aleyda Lopez [facility] HIV 1/2 AG-AB WITH REFLEX 2024-02-13 14:31:00 Aleyda Lopez [facility] HCV ANTIBODY 2024-02-13 14:31:00 Aleyda Lopez [facility] SGOT (ASPARTATE AMINO TRANSFER) 2024-02-12 14:35:00 Junito Neff [facility] CREATININE 2024-02-12 14:35:00 Junito Nfef [facility] ALANINE AMINO TRANSFERASE(SGPT 2024-02-12 14:35:00 Junito Neff [facility] LACTATE DEHYDROGENASE 2024-02-12 14:35:00 Ronnie Neff [facility] URIC ACID 2024-02-12 14:35:00 Junito Neff [facility] CBC WITH DIFF 2024-02-12 14:35:00 Junito Neff [facility] SGOT (ASPARTATE AMINO TRANSFER) 2024-02-12 14:35:00 Junito Neff [facility] CREATININE 2024-02-12 14:35:00 Junito Neff [facility] ALANINE AMINO TRANSFERASE(SGPT 2024-02-12 14:35:00 Junito Neff [facility] LACTATE DEHYDROGENASE 2024-02-12 14:35:00 Ronnie Neff [facility] URIC ACID 2024-02-12 14:35:00 Junito Neff [facility] CBC WITH DIFF 2024-02-12 14:35:00 Junito Neff [facility] CBC WITH DIFF 2024-02-12 14:35:00 Junito Neff [facility] URIC ACID 2024-02-12 14:35:00 Junito Neff [facility] CREATININE 2024-02-12 14:35:00 Junito Neff [facility] SGOT (ASPARTATE AMINO TRANSFER) 2024-02-12 14:35:00 Junito Neff [facility] ALANINE AMINO TRANSFERASE(SGPT 2024-02-12 14:35:00 Junito Neff [facility] LACTATE DEHYDROGENASE 2024-02-12 14:35:00 Ronnie Neff [facility] SECOND AND THIRD TRIMESTER ULTRASOUND 2024-02-10 20:51:33 Eduardo Esposito [facility] SECOND AND THIRD TRIMESTER ULTRASOUND 2024-02-10 20:51:33 Eduardo Esposito [facility] SECOND AND THIRD TRIMESTER ULTRASOUND 2024-02-10 20:28:00 Eduardo Esposito [facility] SECOND AND THIRD TRIMESTER ULTRASOUND 2024-02-10 20:28:00 Eduardo Esposito [facility] SECOND AND THIRD TRIMESTER ULTRASOUND 2024-02-10 20:28:00 Eduardo Esposito [facility] HB ABO GROUPING 2024-02-10 06:40:00 Lizeth Tatum [facility] ANTI-D R/O PANEL 2024-02-10 06:40:00 Moises [facility] ANTI-D R/O PANEL 2024-02-10 06:40:00 Moises [facility] HB ABO GROUPING 2024-02-10 06:40:00 Lizeth Tatum [facility] RHO (D) IMMUNE GLOBULIN 2024-02-10 06:40:00 Moira Gordonshua [facility] ANTI-D R/O PANEL 2024-02-10 06:40:00 Mony De Leon [facility] HB ABO GROUPING 2024-02-10 06:40:00 Lizeth Tatum [facility] RHO (D) IMMUNE GLOBULIN 2024-02-10 06:40:00 Moira Gordonshua [facility] RHO (D) IMMUNE GLOBULIN 2024-02-10 06:40:00 Albert Gordon [facility] NON-STRESS TEST 2024-02-07 00:46:37 Moises [facility] NON-STRESS TEST 2024-02-07 00:46:37 Moises [facility] NON-STRESS TEST 2024-02-07 00:46:37 Moises Mony [facility] SECOND AND THIRD TRIMESTER ULTRASOUND 2024-02-06 19:30:00 Eduardo Esposito [facility] SECOND AND THIRD TRIMESTER ULTRASOUND 2024-02-06 19:30:00 Eduardo Esposito [facility] NON-STRESS TEST 2024-02-05 23:34:05 Ronnie Neff [facility] NON-STRESS TEST 2024-02-05 23:34:05 Ronnie Neff [facility] NON-STRESS TEST 2024-02-05 23:34:05 Ronnie Neff [facility] CBC WITH DIFF 2024-02-05 09:59:00 Junito Neff [facility] URIC ACID 2024-02-05 09:59:00 Junito Neff [facility] CREATININE 2024-02-05 09:59:00 Junito Neff [facility] ALANINE AMINO TRANSFERASE(SGPT 2024-02-05 09:59:00 Junito Neff [facility] LACTATE DEHYDROGENASE 2024-02-05 09:59:00 Ronnie Neff [facility] HB HEMOGLOBIN STAINS 2024-02-05 09:59:00 Junito Neff [facility] HB ABO GROUPING 2024-02-05 09:59:00 Leeanna Tucker [facility] ANTI-D R/O PANEL 2024-02-05 09:59:00 [facility] 2024-02-05 09:59:00 Junito Neff [facility] ALANINE AMINO TRANSFERASE(SGPT 2024-02-05 09:59:00 Junito Neff [facility] LACTATE DEHYDROGENASE 2024-02-05 09:59:00 Ronnie Neff [facility] URIC ACID 2024-02-05 09:59:00 Junito Neff [facility] CBC WITH DIFF 2024-02-05 09:59:00 Junito Neff [facility] ANTI-D R/O PANEL 2024-02-05 09:59:00 [facility] 2024-02-05 09:59:00 Leeanna Tucker [facility] HB HEMOGLOBIN STAINS 2024-02-05 09:59:00 Junito Neff [facility] CREATININE 2024-02-05 09:59:00 Junito Neff [facility] ALANINE AMINO TRANSFERASE(SGPT 2024-02-05 09:59:00 Junito Neff [facility] LACTATE DEHYDROGENASE 2024-02-05 09:59:00 Ronnie Neff [facility] URIC ACID 2024-02-05 09:59:00 Junito Neff [facility] CBC WITH DIFF 2024-02-05 09:59:00 Junito Neff [facility] ANTI-D R/O PANEL 2024-02-05 09:59:00 [facility] HB ABO GROUPING 2024-02-05 09:59:00 Leeanna Tucker [facility] HB HEMOGLOBIN STAINS 2024-02-05 09:59:00 Junito Neff [facility] NON-STRESS TEST 2024-02-04 21:33:01 Ronnie Neff [facility] NON-STRESS TEST 2024-02-04 21:33:01 Ronnie Neff [facility] NON-STRESS TEST 2024-02-04 21:33:01 Ronnie Neff [facility] PROTHROMBIN TIME / INR 2024-02-04 17:04:00 Grady Neff [facility] ACTIVATED PARTIAL THRMPLAS CHELLY 2024-02-04 17:04:00 Junito Neff [facility] FIBRINOGEN 2024-02-04 17:04:00 Junito Neff [facility] CBC WITHOUT DIFF 2024-02-04 17:04:00 Jai Garcia [facility] CBC WITHOUT DIFF 2024-02-04 17:04:00 Jai Garcia [facility] PROTHROMBIN TIME / INR 2024-02-04 17:04:00 Grady Neff [facility] ACTIVATED PARTIAL THRMPLAS CHELLY 2024-02-04 17:04:00 Junito Neff [facility] FIBRINOGEN 2024-02-04 17:04:00 Junito Neff [facility] CBC WITHOUT DIFF 2024-02-04 17:04:00 Jai Garcia [facility] PROTHROMBIN TIME / INR 2024-02-04 17:04:00 Grady Neff [facility] ACTIVATED PARTIAL THRMPLAS CHELLY 2024-02-04 17:04:00 Junito Neff [facility] FIBRINOGEN 2024-02-04 17:04:00 Junito Neff [facility] NON-STRESS TEST 2024-02-03 22:39:02 Ronnie Neff [facility] NON-STRESS TEST 2024-02-03 22:39:02 Ronnie Neff [facility] NON-STRESS TEST 2024-02-03 22:39:02 Ronnie Neff [facility] DUPLEX VENOUS LEGS BILATERAL - BY VASCULAR LAB 2024-02-03 20:56:25 Junito Neff [facility] DUPLEX VENOUS LEGS BILATERAL - BY VASCULAR LAB 2024-02-03 20:56:25 Junito Neff [facility] DUPLEX VENOUS LEGS BILATERAL - BY VASCULAR LAB 2024-02-03 20:56:25 Junito Neff [facility] SECOND AND THIRD TRIMESTER ULTRASOUND 2024-02-03 15:29:00 Eduardo Esposito [facility] SECOND AND THIRD TRIMESTER ULTRASOUND 2024-02-03 15:29:00 Eduardo Esposito [facility] HB ABO GROUPING 2024-02-01 06:36:00 Mariah Lama [facility] ANTI-D R/O PANEL 2024-02-01 06:36:00 [facility] 2024-02-01 06:36[facility]24-02-01 06:36:00 Mariah Lama [facility] ANTI-D R/O PANEL 2024-02-01 06:36[facility]00 [facility] 2024-02-01 06:36:00 Mariah Lama [facility] SECOND AND THIRD TRIMESTER ULTRASOUND 2024-01-30 16:38:00 Eduardo Esposito [facility] SECOND AND THIRD TRIMESTER ULTRASOUND 2024-01-30 16:38:00 Eduardo Esposito [facility] NON-STRESS TEST 2024-01-29 22:36:33 Ronnie Neff [facility] NON-STRESS TEST 2024-01-29 22:36:33 Ronnie Neff [facility] NON-STRESS TEST 2024-01-29 22:36:33 Ronnie Neff [facility] CBC WITH DIFF 2024-01-29 17:49:00 Junito Neff [facility] URIC ACID 2024-01-29 17:49:00 Junito Neff [facility] URIC ACID 2024-01-29 17:49:00 Junito Neff [facility] CBC WITH DIFF 2024-01-29 17:49:00 Junito Neff [facility] URIC ACID 2024-01-29 17:49:00 Junito Neff [facility] CBC WITH DIFF 2024-01-29 17:49:00 Junito Neff [facility] PROTEIN CREAT RATIO URINE RANDOM 2024-01-29 17:48:00 Junito Neff [facility] CREATININE 2024-01-29 17:48:00 Junito Neff [facility] SGOT (ASPARTATE AMINO TRANSFER) 2024-01-29 17:48:00 Junito Neff [facility] ALANINE AMINO TRANSFERASE(SGPT 2024-01-29 17:48:00 Junito Neff [facility] LACTATE DEHYDROGENASE 2024-01-29 17:48:00 Ronnie Neff [facility] URINALYSIS 2024-01-29 17:48:00 Junito Neff [facility] SGOT (ASPARTATE AMINO TRANSFER) 2024-01-29 17:48:00 Junito Neff [facility] CREATININE 2024-01-29 17:48:00 Junito Neff [facility] ALANINE AMINO TRANSFERASE(SGPT 2024-01-29 17:48:00 Junito Neff [facility] LACTATE DEHYDROGENASE 2024-01-29 17:48:00 Neff, Scot t [facility] URINALYSIS 2024-01-29 17:48:00 Junito Neff [facility] PROTEIN CREAT RATIO URINE RANDOM 2024-01-29 17:48:00 Junito Neff [facility] SGOT (ASPARTATE AMINO TRANSFER) 2024-01-29 17:48:00 Junito Neff [facility] CREATININE 2024-01-29 17:48:00 Junito Neff [facility] ALANINE AMINO TRANSFERASE(SGPT 2024-01-29 17:48:00 Junito Neff [facility] LACTATE DEHYDROGENASE 2024-01-29 17:48:00 Ronnie Neff [facility] URINALYSIS 2024-01-29 17:48:00 Junito Neff [facility] PROTEIN CREAT RATIO URINE RANDOM 2024-01-29 17:48:00 Junito Neff [facility] NON-STRESS TEST 2024-01-28 20:36:32 Ronnie Neff [facility] NON-STRESS TEST 2024-01-28 20:36:32 Ronnie Neff [facility] NON-STRESS TEST 2024-01-28 20:36:32 Ronnie Neff [facility] HB ABO GROUPING 2024-01-28 06:01:00 Leeanna Tucker [facility] ANTI-D R/O PANEL 2024-01-28 06:01:00 Velia Sutton [facility] ANTI-D R/O PANEL 2024-01-28 06:01:00 Velia Sutton [facility] HB ABO GROUPING 2024-01-28 06:01:00 Leeanna Tucker [facility] ANTI-D R/O PANEL 2024-01-28 06:01:00 Velia Sutton [facility] HB ABO GROUPING 2024-01-28 06:01:00 Leeanna Tucker [facility] NON-STRESS TEST 2024-01-27 22:07:12 Ronnie Neff [facility] NON-STRESS TEST 2024-01-27 22:07:12 Ronnie Neff [facility] NON-STRESS TEST 2024-01-27 22:07:12 Ronnie Neff [facility] SECOND AND THIRD TRIMESTER ULTRASOUND 2024-01-27 17:38:00 Eduardo Esposito [facility] SECOND AND THIRD TRIMESTER ULTRASOUND 2024-01-27 17:38:00 Eduardo Esposito [facility] EXTRA TUBE LT. GREEN 2024-01-25 03:31:00 Joey Cotter [facility] EXTRA TUBE LAV 2024-01-25 03:31:00 Tara Cotter [facility] EXTRA TUBE LAV 2024-01-25 03:31:00 Tara Cotter [facility] EXTRA TUBE LT. GREEN 2024-01-25 03:31:00 Joey Cotter [facility] EXTRA TUBE LAV 2024-01-25 03:31:00 Tara Cotter [facility] EXTRA TUBE LT. GREEN 2024-01-25 03:31:00 Joey Cotter [facility] BASIC METABOLIC PANEL (NA, K, CL, CO2, GLUCOSE, BUN, CREATININE, CA) 2024-01-25 03:18:00 Ly, [facility] MAGNESIUM 2024-01-25 03:18:00 Ly, [facility] PHOSPHORUS 2024-01-25 03:18:00 Ly, [facility] HB ABO GROUPING 2024-01-25 03:18:00 Ly, [facility] ANTI-D R/O PANEL 2024-01-25 03:18:00 Rosalinda Sen [facility] PHOSPHORUS 2024-01-25 03:18:00 Ly, [facility] MAGNESIUM 2024-01-25 03:18:00 Ly, [facility] BASIC METABOLIC PANEL (NA, K, CL, CO2, GLUCOSE, BUN, CREATININE, CA) 2024-01-25 03:18:00 Ly, [facility] ANTI-D R/O PANEL 2024-01-25 03:18:00 Rosalinda Sen [facility] HB ABO GROUPING 2024-01-25 03:18:00 Ly, [facility] PHOSPHORUS 2024-01-25 03:18:00 Ly, [facility] MAGNESIUM 2024-01-25 03:18:00 Ly, [facility] BASIC METABOLIC PANEL (NA, K, CL, CO2, GLUCOSE, BUN, CREATININE, CA) 2024-01-25 03:18:00 Ly, [facility] ANTI-D R/O PANEL 2024-01-25 03:18:00 Mckinley [facility] HB ABO GROUPING 2024-01-25 03:18:00 Ly, [facility] HB ECG ROUTINE & RHYTHM STRIP 2024-01-25 02:09:19 Ly, [facility] HB ECG ROUTINE & RHYTHM STRIP 2024-01-25 02:09:19 Ly, [facility] HB ECG ROUTINE & RHYTHM STRIP 2024-01-25 02:09:19 Ly, [facility] NON-STRESS TEST 2024-01-23 15:40:03 Vivienne Lui Mai [facility] NON-STRESS TEST 2024-01-23 15:40:03 Vivienne Lui Mai [facility] NON-STRESS TEST 2024-01-23 15:40:03 Vivienne Lui Mai [facility] URINALYSIS 2024-01-22 19:38:00 LuiSusannah Mai [facility] URINALYSIS 2024-01-22 19:38:00 LuiSusannah segura Mai [facility] URINALYSIS 2024-01-22 19:38:00 LuiSusannah moran Mai [facility] MAGNESIUM 2024-01-22 19:35:00 LuiSusannah moran Mai [facility] CREATININE 2024-01-22 19:35:00 LuiSusannah moran Mai Gabriel [facility] CBC WITH DIFF 2024-01-22 19:35:00 Lui, Susannah Gabriel [facility] URIC ACID 2024-01-22 19:35:00 Lui, Susannah Gabriel [facility] SGOT (ASPARTATE AMINO TRANSFER) 2024-01-22 19:35:00 Lui, Vivienne Gabriel [facility] ALANINE AMINO TRANSFERASE(SGPT 2024-01-22 19:35:00 Lui, Vivienne Gabriel [facility] LACTATE DEHYDROGENASE 2024-01-22 19:35:00 Lui , Vivienne Gabriel [facility] SGOT (ASPARTATE AMINO TRANSFER) 2024-01-22 19:35:00 Lui, Vivienne Gabriel [facility] CREATININE 2024-01-22 19:35:00 Lui, Susannah Gabriel [facility] ALANINE AMINO TRANSFERASE(SGPT 2024-01-22 19:35:00 Lui, Vivienne Gabriel [facility] LACTATE DEHYDROGENASE 2024-01-22 19:35:00 Lui , Vivienne Gabriel [facility] URIC ACID 2024-01-22 19:35:00 Lui, Susannah Gabriel [facility] MAGNESIUM 2024-01-22 19:35:00 Lui, Susannah Gabriel [facility] CBC WITH DIFF 2024-01-22 19:35:00 Uli, Susannah Gabriel [facility] SGOT (ASPARTATE AMINO TRANSFER) 2024-01-22 19:35:00 Lui, Vivienne Gabriel [facility] CREATININE 2024-01-22 19:35:00 Lui, Susannah Gabriel [facility] ALANINE AMINO TRANSFERASE(SGPT 2024-01-22 19:35:00 Lui, Vivienne Gabriel [facility] LACTATE DEHYDROGENASE 2024-01-22 19:35:00 Lui , Vivienne Gabriel [facility] URIC ACID 2024-01-22 19:35:00 Lui, Susannah Gabriel [facility] MAGNESIUM 2024-01-22 19:35:00 Susannah Lui Mai [facility] CBC WITH DIFF 2024-01-22 19:35:00 Susannah Lui Mai [facility] HB ABO GROUPING 2024-01-22 00:48:00 Chelita Dubon [facility] PROTEIN CREAT RATIO URINE RANDOM 2024-01-22 00:48:00 Ajit [facility] CBC WITH DIFF 2024-01-22 00:48:00 Braeden Fong [facility] URIC ACID 2024-01-22 00:48:00 Ajit [facility] CREATININE 2024-01-22 00:48:00 Braeden Fong [facility] SGOT (ASPARTATE AMINO TRANSFER) 2024-01-22 00:48:00 Ajit [facility] ALANINE AMINO TRANSFERASE(SGPT 2024-01-22 00:48:00 Ajit [facility] LACTATE DEHYDROGENASE 2024-01-22 00:48:00 Tiffany Fong [facility] URINALYSIS 2024-01-22 00:48:00 Braeden Fong [facility] ANTI-D R/O PANEL 2024-01-22 00:48:00 Mony De Leon [facility] SGOT (ASPARTATE AMINO TRANSFER) 2024-01-22 00:48:00 Ajit [facility] CREATININE 2024-01-22 00:48:00 Braeden Fong [facility] ALANINE AMINO TRANSFERASE(SGPT 2024-01-22 00:48:00 Ajit [facility] LACTATE DEHYDROGENASE 2024-01-22 00:48:00 Tiffany Fong [facility] URIC ACID 2024-01-22 00:48:00 Braeden Fong [facility] CBC WITH DIFF 2024-01-22 00:48:00 Braeden Fong [facility] URINALYSIS 2024-01-22 00:48:00 Braeden Fong [facility] ANTI-D R/O PANEL 2024-01-22 00:48:00 Mony De Leon [facility] HB ABO GROUPING 2024-01-22 00:48:00 Chelita Dubon [facility] PROTEIN CREAT RATIO URINE RANDOM 2024-01-22 00:48:00 Ajit [facility] SGOT (ASPARTATE AMINO TRANSFER) 2024-01-22 00:48:00 Ajit [facility] CREATININE 2024-01-22 00:48:00 Ajit [facility] ALANINE AMINO TRANSFERASE(SGPT 2024-01-22 00:48:00 Ajit [facility] LACTATE DEHYDROGENASE 2024-01-22 00:48:00 Tiffany Fong [facility] URIC ACID 2024-01-22 00:48:00 Ajit [facility] CBC WITH DIFF 2024-01-22 00:48:00 Braeden Fong [facility] URINALYSIS 2024-01-22 00:48:00 Ajit [facility] ANTI-D R/O PANEL 2024-01-22 00:48:00 Mony De Leon [facility] HB ABO GROUPING 2024-01-22 00:48:00 Chelita Dubon [facility] PROTEIN CREAT RATIO URINE RANDOM 2024-01-22 00:48:00 Braeden Fong [facility] SECOND AND THIRD TRIMESTER ULTRASOUND 2024-01-21 16:48:00 Eduardo Esposito [facility] SECOND AND THIRD TRIMESTER ULTRASOUND 2024-01-21 16:48:00 Eduardo Esposito [facility] SECOND AND THIRD TRIMESTER ULTRASOUND 2024-01-17 18:34:00 Eduardo Esposito [facility] SECOND AND THIRD TRIMESTER ULTRASOUND 2024-01-17 18:34:00 Eduardo Esposito [facility] NON-STRESS TEST 2024-01-16 16:07:53 Lina Wood [facility] NON-STRESS TEST 2024-01-16 16:07:53 Hodgin s[facility] 2024-01-16 05:00:00 Lalit Fernando [facility] HB ABO GROUPING 2024-01-16 05:00:00 [facility] HB ABO GROUPING 2024-01-16 05:00:00 Mone Theodore [facility] ANTI-D R/O PANEL 2024-01-16 05:00:00 Lalit Fernando [facility] NON-STRESS TEST 2024-01-15 20:48:46 [facility] NON-STRESS TEST 2024-01-15 20:48:46 Lina Wood [facility] NON-STRESS TEST 2024-01-15 18:43:02 Lina Wood [facility] NON-STRESS TEST 2024-01-15 18:43:02 Lina Wood [facility] NON-STRESS TEST 2024-01-14 16:30:27 Lina Wood [facility] NON-STRESS TEST 2024-01-14 16:30:27 [facility] GROUP B STREPTOCOCCUS BY PCR 2024-01-13 20:29:00 Lina [facility]alavera [facility] GROUP B STREPTOCOCCUS BY PCR 2024-01-13 20:29:00 Lina Talavera [facility] SECOND AND THIRD TRIMESTER ULTRASOUND 2024-01-13 18:12:00 Eduardo Esposito [facility] SECOND AND THIRD TRIMESTER ULTRASOUND 2024-01-13 18:12:00 Eduardo Esposito [facility] NON-STRESS TEST 2024-01-13 16:34:52 Lina Wood [facility] NON-STRESS TEST 2024-01-13 16:34:52 Lina Wood [facility] ANTI-D R/O PANEL 2024-01-12 13:27:00 Velia Sutton [facility] HB ABO GROUPING 2024-01-12 13:27:00 Espinoza Talavera [facility] HB ABO GROUPING 2024-01-12 13:27:00 Espinoza Talavera [facility] ANTI-D R/O PANEL 2024-01-12 13:27:00 Velia Sutton [facility] CBC WITH DIFF 2024-01-12 13:20[facility] EXTRA TUBE LAV 2024-01-12 13:20:00 OmereAnthony [facility] EXTRA TUBE SST 2024-01-12 13:20:00 OmereAnthony [facility] CBC WITH DIFF 2024-01-12 13:20[facility] 2024-01-12 13:20:00 OmereAnthony [facility] EXTRA TUBE SST 2024-01-12 13:20:00 OmeAnthony clarke [facility] HEPATITIS B SURFACE ANTIGEN 2024-01-09 17:57[facility]24-[facility]-09 17:57[facility]00 [facility] HEPATITIS B SURFACE ANTIGEN 2024-01-09 17:57:00 [facility] SYPHILIS IGG/IGM 2024-01-09 17:57:00 [facility] ANTI-D R/O PANEL 2024-01-09 17:53:00 Darlene Justice [facility] HB ABO GROUPING 2024-01-09 17:53:00 Chelita Dubon [facility] HB ABO GROUPING 2024-01-09 17:53:00 Chelita Dubon [facility] ANTI-D R/O PANEL 2024-01-09 17:53:00 Raji Justice [facility] SECOND AND THIRD TRIMESTER ULTRASOUND 2024-01-09 15:43:00 Eduardo Esposito [facility] SECOND AND THIRD TRIMESTER ULTRASOUND 2024-01-09 15:43:00 Eduardo Esposito [facility] NON-STRESS TEST 2024-01-07 21:06:54 Alban Esposito [facility] NON-STRESS TEST 2024-01-07 21:06:54 Alban Esposito [facility] FLU VACC (), 6 MO-64 YRS, .5ML, IM, TIV (FLUCELVAX) 2024-01-07 20:49:31 Eduardo Esposito [facility] FLU VACC (), 6 MO-64 YRS, .5ML, IM, TIV (FLUCELVAX) 2024-01-07 20:49:31 Eduardo Esposito [facility] SECOND AND THIRD TRIMESTER ULTRASOUND 2024-01-06 18:13:00 Eduardo Esposito [facility] SECOND AND THIRD TRIMESTER ULTRASOUND 2024-01-06 18:13:00 Eduardo Esposito [facility] SECOND AND THIRD TRIMESTER ULTRASOUND 2024-01-03 15:22:00 Eduardo Esposito [facility] SECOND AND THIRD TRIMESTER ULTRASOUND 2024-01-03 15:22:00 Eduardo Esposito [facility] NON-STRESS TEST 2024-01-02 16:56:58 Chato Hernandez [facility] NON-STRESS TEST 2024-01-02 16:56:58 Chato Hernandez [facility] 3 HR GLUCOSE TOLERANCE TEST 2024-01-02 16:30:00 Eduardo Esposito [facility] 2 HR GLUCOSE TOLERANCE TEST 2024-01-02 15:30:00 Eduardo Esposito [facility] CBC WITH DIFF 2024-01-02 14:30:00 Eduardo Esposito [facility] 1 HR GLUCOSE TOLERANCE TEST 2024-01-02 14:30:00 Eduardo Esposito [facility] POCT URINALYSIS 2024-01-02 13:50:00 Eduardo Esposito [facility] POCT URINALYSIS 2024-01-02 13:50:00 Eduardo Esposito [facility] 3 HR GLUCOSE TOLERANCE PANEL 2024-01-02 13:25:00 Eduardo Esposito [facility] GLUCOSE FASTING 2024-01-02 13:25:00 Eduardo Esposito [facility] SECOND AND THIRD TRIMESTER ULTRASOUND 2023-12-31 20:49:00 Eduardo Esposito [facility] SECOND AND THIRD TRIMESTER ULTRASOUND 2023-12-31 20:49:00 Eduardo Esposito [facility] NON-STRESS TEST 2023-12-31 18:46:17 Alban Esposito [facility] NON-STRESS TEST 2023-12-31 18:46:17 Alban Esposito [facility] POCT URINALYSIS 2023-12-31 18:46:00 Eduardo Esposito [facility] POCT URINALYSIS 2023-12-31 18:46:00 Eduardo Esposito [facility] SECOND AND THIRD TRIMESTER ULTRASOUND 2023-12-26 18:24:00 Eduardo Esposito [facility] SECOND AND THIRD TRIMESTER ULTRASOUND 2023-12-26 18:24:00 Eduardo Esposito [facility] NON-STRESS TEST 2023-12-26 17:27:35 Sorathia, [facility] NON-STRESS TEST 2023-12-25 21:10:51 Sorathia, [facility] NON-STRESS TEST 2023-12-25 21:10:51 Sorathia, [facility] NON-STRESS TEST 2023-12-24 16:14:49 Sorathia, [facility] NON-STRESS TEST 2023-12-24 16:14:49 Sorathia, [facility] HB ABO GROUPING 2023-12-23 20:04:00 Amirah Alisha [facility] HEPATITIS B SURFACE ANTIGEN 2023-12-23 20:04:00 Amirah Alisha [facility] SYPHILIS IGG/IGM 2023-12-23 20:04:00 AmirahRachelsh [facility] RHO (D) IMMUNE GLOBULIN 2023-12-23 20:04:00 Audrey [facility] HGB STAIN/KB STAIN 2023-12-23 20:04:00 Yadira Sutton [facility] HEPATITIS B SURFACE ANTIGEN 2023-12-23 20:04:00 Amirah [facility] HB ABO GROUPING 2023-12-23 20:04:00 Alisha Macario [facility] HGB STAIN/KB STAIN 2023-12-23 20:04:00 Yadira Sutton [facility] RHO (D) IMMUNE GLOBULIN 2023-12-23 20:04:00 Audrey [facility] SYPHILIS IGG/IGM 2023-12-23 20:04:00 Alisha Macario [facility] SECOND AND THIRD TRIMESTER ULTRASOUND 2023-12-23 16:54:00 Eduardo Esposito [facility] SECOND AND THIRD TRIMESTER ULTRASOUND 2023-12-23 16:54:00 Eduardo Esposito [facility] CHROMOSOMAL MICROARRAY, OLEG ALEXANDERNP-Q 2023-12-23 16:37:00 [facility] CHROMOSOME STUDY, AMNIOTIC FLUID-Q 2023-12-23 16:37:00 [facility] CYTOMEGALOVIRUS DNA, QL REAL TIME PCR-Q 2023-12-23 16:37:00 [facility] PARVOVIRUS B19 DNA, QL REAL TIME PCR-Q 2023-12-23 16:37:00 [facility] TOXOPLASMA GONDII, DNA, QL PCR-Q 2023-12-23 16:37:00 [facility] SECOND AND THIRD TRIMESTER ULTRASOUND 2023-12-17 16:54:00 Eduardo Esposito [facility] SECOND AND THIRD TRIMESTER ULTRASOUND 2023-12-17 16:54:00 Eduardo Esposito [facility] SECOND AND THIRD TRIMESTER ULTRASOUND 2023-12-17 16:16:00 Eduardo Esposito [facility] SECOND AND THIRD TRIMESTER ULTRASOUND 2023-12-17 16:16:00 Eduardo Esposito [facility] SECOND AND THIRD TRIMESTER ULTRASOUND 2023-12-17 16:03:00 Eduardo Esposito [facility] SECOND AND THIRD TRIMESTER ULTRASOUND 2023-12-17 16:03:00 Eduardo Esposito [facility] SECOND AND THIRD TRIMESTER ULTRASOUND 2023-12-11 21:15:00 Eduardo Esposito [facility] SECOND AND THIRD TRIMESTER ULTRASOUND 2023-12-11 21:15:00 Edu[facility] [facility] POCT URINALYSIS 2023-12-05 20:00:00 Eduardo Esposito [facility] POCT URINALYSIS 2023-12-05 20:00:00 Eduardo Esposito [facility] SECOND AND THIRD TRIMESTER ULTRASOUND 2023-11-11 14:56:00 Eduardo Esposito [facility] SECOND AND THIRD TRIMESTER ULTRASOUND 2023-11-11 14:56:00 Eduardo Esposito [facility] POCT URINALYSIS 2023-11-07 20:58:00 Eduardo Esposito [facility] POCT URINALYSIS 2023-10-16 19:46:00 Eduardo Esposito [facility] POCT URINALYSIS 2023-10-10 21:26:00 Eduardo Esposito [facility] ALPHA FETOPROTEIN-MATERNAL SER 2023-10-10 21:00:00 Renetta Bonilla [facility] NIPT - NON-INVASIVE TEST RESULTS 2023-09-24 22:07:02 Doctor Unassigned, Adams [facility] NIPT - NON-INVASIVE TEST RESULTS 2023-09-24 22:06:02 Doctor Unassigned, Adams [facility] FIRST TRIMESTER ULTRASOUND 2023-09-20 20:22:00 Eduardo Rangel [facility] POCT URINALYSIS 2023-09-12 20:20:00 Eduardo Esposito [facility] PPD (TB) 2023-08-14 19:09:53 Eduardo Esposito [facility] POCT TEST 2023-08-14 18:15:00 Sheldon Esposito [facility] POCT URINALYSIS W/O SPECIFIC GRAVITY 2023-08-14 18:15:00 Eduardo Esposito [facility] HCV ANTIBODY 2023-08-14 07:45:00 Eduardo Esposito [facility] HIV 1/2 AG-AB WITH REFLEX 2023-08-14 07:45:00 Eduardo Esposito [facility] [id number] Abdominal Pelvic Limited 2023-07-18 00:00:00 Sam Conner ASSIGNMENT OF BENEFITS 2023-04-09 19:19:15 Docto r Unassigned, Adams [facility] FLU VACC (), 6 MO-64 YRS, .5ML, IM, QUAD (FLUCELVAX) 2022-12-28 14:23:58 Renetta Bonilla [facility] REFERRAL- REQUEST/RESPONSE 2022-07-31 05:01:00 Crys dubon Unassigned, Adams [facility] POCT TEST 2022-04-18 17:07:00 Sheldon Esposito [facility] POCT TEST 2022-04-05 20:27:00 Sheldon Esposito [facility] PAP SMEAR-LIQUID BASED-CP 2022-04-05 20:26:00 Eduardo Esposito [facility] PAP SMEAR-LIQUID BASED-CP 2022-04-05 20:26:00 Eduardo Esposito [facility] "SP ANA ONLY" FLU VACC(), 6+ MONTHS, IM, QUAD (FLUZONE/FLULAVAL/FLUARIX) 2022-04-05 20:17:58 Eduardo Esposito [facility] ASSIGNMENT OF BENEFITS 2022-04-05 19:09:57 Docto r Unassigned, Adams [facility] Encounters Start Date/Time End Date/Time Encounter Type Admission Type Attending [facility] Facility Care Department Encounter ID Source 2023-09-24 00:00:00 2024-05-09 07:23:43 Orders Only Doctor Unassigned, Adams Doctor Unassigned, Adams [facility] ([facility] 1.2.840.114 350.1.13.10 4.2.7.2.686 [id number] [facility] 2023-09-24 00:00:00 2024-05-09 07:23:30 Orders Only Doctor Unassigned, Adams Doctor Unassigned, Adams [facility] ([facility]) 1.2.840.114 350.1.13.10 4.2.7.2.686 [id number] [facility] 2024-02-10 00:00:00 2024-05-09 06:36:37 Orders Only Eduardo Esposito 1.2.840.1 90813.1.1 3.104.2.7 .3.336662 .8 [id number] [facility] 2024-04-09 10:30:00 2024-04-09 14:54:35 Office Visit Norma Matt 1.2.840.1 10608.1.1 3.104.2.7 .3.709847 .8 [id number] [facility] 2024-04-09 10:30:00 2024-04-09 10:30:00 Outpatient R NORMA MATT [facility] [id number] [facility] 2024-04-09 00:00:00 2024-04-09 00:00:00 Travel 1.2.840.1 70537.1.1 3.104.2.7 .3.968424 .8 1.2.840.114 350.1.13.10 4.2.7.3.698 084.8 [id number] [facility] 2024-03-27 00:00:00 2024-03-30 09:25:07 Telephone Norma Matt 1.2.840.1 90010.1.1 3.104.2.7 .3.992109 .8 [id number] [facility] 2024-03-27 00:00:00 2024-03-27 00:00:00 Scanned Documents Doctor Unassigned, Adams 1.2.840.1 59940.1.1 3.104.2.7 .3.098974 .8 [id number] [facility] 2024-03-26 10:00:00 2024-03-26 11:39:25 Outpatient R NORMA MATT [facility] [id number] [facility] 2024-03-26 10:00:00 2024-03-26 11:39:25 Office Visit Norma Matt 1.2.840.1 06745.1.1 3.104.2.7 .3.948221 .8 [id number] [facility] 2024-03-26 00:00:00 2024-03-26 00:00:00 Travel 1.2.840.1 44031.1.1 3.104.2.7 .3.423636 .8 1.2.840.114 350.1.13.10 4.2.7.3.698 084.8 [id number] [facility] 2024-03-05 11:00:00 2024-03-05 11:46:28 Outpatient R EDUARDO ESPOSITO [facility] [id number] [facility] 2024-03-05 11:00:00 2024-03-05 11:46:28 Routine Visit Eduardo Esposito 1.2.840.1 62392.1.1 3.104.2.7 .3.943151 .8 [id number] [facility] 2024-03-05 00:00:00 2024-03-05 00:00:00 Travel 1.2.840.1 17516.1.1 3.104.2.7 .3.832221 .8 1.2.840.114 350.1.13.10 4.2.7.3.698 084.8 [id number] [facility] 2024-02-25 00:00:00 2024-02-25 14:47:05 Encounter 1.2.840.1 56604.1.1 3.104.2.7 .3.184533 .8 [id number] [facility] 2024-02-19 10:30:00 2024-02-19 10:57:44 Outpatient R EDUARDO ESPOSITO [facility] [id number] [facility] 2024-02-19 10:30:00 2024-02-19 10:57:44 Nurse [facility] 1.2.840.1 35308.1.1 3.104.2.7 .3.974054 .8 [id number] [facility] 2024-02-19 00:00:00 2024-02-19 00:00:00 Travel 1.2.840.1 28232.1.1 3.104.2.7 .3.227904 .8 1.2.840.114 350.1.13.10 4.2.7.3.698 084.8 [id number] [facility] 2024-01-21 15:56:00 2024-02-16 19:44:00 Inpatient P TARA COTTER [facility]STO [id number] [facility] 2024-01-21 15:56:00 2024-02-16 19:44:00 Hospital Encounter Tanya Crowley, Tara Montoya 1.2.840.1 83589.1.1 3.104.2.7 .3.162812 .8 [id number] [facility] 2024-02-14 20:02:43 2024-02-14 20:02:43 Anesthesia Event yTson Prado 1.2.840.1 65429.1.1 3.104.2.7 .3.748818 .8 [id number] [facility] 2024-02-13 12:00:00 2024-02-13 13:55:00 Surgery Jorge Mendiola 1.2.840.1 47023.1.1 3.104.2.7 .3.943586 .8 [id number] [facility] 2024-02-13 10:40:00 2024-02-13 12:02:00 Anesthesia Event Brent Lees Patrick 1.2.840.1 77019.1.1 3.104.2.7 .3.484738 .8 [id number] [facility] 2024-02-12 00:00:00 2024-02-12 16:55:55 Abstract Eduardo Esposito 1.2.840.1 65884.1.1 3.104.2.7 .3.006901 .8 [id number] [facility] 2024-02-10 14:15:00 2024-02-10 14:25:31 Operations Officer Trust Department Visit Eduardo Esposito Karin Clark, Shannon M 1, [facility] Room 1.2.840.1 55392.1.1 3.104.2.7 .3.470704 .8 [id number] [facility] 2024-02-10 00:00:00 2024-02-10 00:00:00 Travel 1.2.840.1 93860.1.1 3.104.2.7 .3.150138 .8 1.2.840.114 350.1.13.10 4.2.7.3.698 084.8 [id number] [facility] 2024-02-06 18:50:00 2024-02-06 19:50:00 Ancillary Procedure Mony De Leon 1.2.840.1 46419.1.1 3.104.2.7 .3.485532 .8 [id number] [facility] 2024-02-06 00:00:00 2024-02-06 16:21:16 Abstract Cate Eduardo C 1.2.840.1 28202.1.1 3.104.2.7 .3.331768 .8 [id number] [facility] 2024-02-06 11:30:00 2024-02-06 13:40:58 Operations Officer Trust Department Visit 1, [facility] Room Tanya Crowley Hassan M 1, [facility] Room [facility] 1.2.840.114 350.1.13.10 4.2.7.2.686 [id number] [facility] 2024-02-05 17:40:00 2024-02-05 18:40:00 Ancillary Procedure Mony De Leon 1.2.840.1 26437.1.1 3.104.2.7 .3.805281 .8 [id number] [facility] 2024-02-05 17:35:00 2024-02-05 18:35:00 Ancillary Procedure Mony De Leon 1.2.840.1 59079.1.1 3.104.2.7 .3.414310 .8 [id number] [facility] 2024-02-04 15:40:00 2024-02-04 16:40:00 Ancillary Procedure Tanya Crowley 1.2.840.1 69773.1.1 3.104.2.7 .3.366616 .8 [id number] [facility] 2024-02-04 15:35:00 2024-02-04 16:35:00 Ancillary Procedure Tanya Crowley 1.2.840.1 20504.1.1 3.104.2.7 .3.002297 .8 [id number] [facility] 2024-02-04 00:00:00 2024-02-04 16:14:37 Abstract Eduardo Esposito 1.2.840.1 59010.1.1 3.104.2.7 .3.516930 .8 [id number] [facility] 2024-02-03 16:40:00 2024-02-03 17:40:00 Ancillary Procedure Velia Sutton 1.2.840.1 28924.1.1 3.104.2.7 .3.707630 .8 [id number] [facility] 2024-02-03 09:30:00 2024-02-03 09:30:57 Operations Officer Trust Department Visit 1, [facility] Room Eduardo Esposito Karin 1, [facility] Room [facility] 1.2.840.114 350.1.13.10 4.2.7.2.686 [id number] [facility] 2024-01-30 00:00:00 2024-01-30 14:13:00 Abstract Eduardo Esposito 1.2.840.1 61842.1.1 3.104.2.7 .3.306921 .8 [id number] [facility] 2024-01-30 10:30:00 2024-01-30 11:26:35 Operations Officer Trust Department Visit 1, [facility] Tanya Crowley 1, [facility] Room [facility] 1.2.840.114 350.1.13.10 4.2.7.2.686 [id number] [facility] 2024-01-30 00:00:00 2024-01-30 00:00:00 Travel 1.2.840.1 43774.1.1 3.104.2.7 .3.078414 .8 1.2.840.114 350.1.13.10 4.2.7.3.698 084.8 [id number] [facility] 2024-01-29 16:40:00 2024-01-29 17:40:00 Ancillary Procedure Melanie Fernando 1.2.840.1 36931.1.1 3.104.2.7 .3.714509 .8 [id number] [facility] 2024-01-28 14:40:00 2024-01-28 15:40:00 Ancillary Procedure BakarisheritaagusTara 1.2.840.1 87551.1.1 3.104.2.7 .3.568314 .8 [id number] [facility] 2024-01-27 16:15:00 2024-01-27 17:15:00 Ancillary Procedure Tanya Crowley 1.2.840.1 89096.1.1 3.104.2.7 .3.171081 .8 [id number] [facility] 2024-01-27 16:10:00 2024-01-27 17:10:00 Ancillary Procedure Tanya Crowley 1.2.840.1 97856.1.1 3.104.2.7 .3.042607 .8 [id number] [facility] 2024-01-27 00:00:00 2024-01-27 16:27:49 Abstract Eduardo Esposito 1.2.840.1 46240.1.1 3.104.2.7 .3.427171 .8 [id number] [facility] 2024-01-27 11:00:00 2024-01-27 11:49:03 Operations Officer Trust Department Visit Eduardo Esposito Karin 1, [facility] Room 1.2.840.1 02606.1.1 3.104.2.7 .3.288677 .8 [id number] [facility] 2024-01-24 14:00:00 2024-01-24 14:00:00 Outpatient R [facility] [id number] [facility] 2024-01-23 10:45:00 2024-01-23 11:45:00 Ancillary Procedure Arash Laughlin 1.2.840.1 31703.1.1 3.104.2.7 .3.898981 .8 [id number] [facility] 2024-01-22 00:00:00 2024-01-22 15:33:35 Abstract Eduardo Esposito 1.2840.1 75742.1.1 3.104.2.7 .3.612815 .8 [id number] [facility] 2024-01-21 10:15:00 2024-01-21 16:44:06 Outpatient N MONY DE LEON, MONY KEN [facility] [id number] [facility] 2024-01-21 10:15:00 2024-01-21 16:44:06 Operations Officer Trust Department Visit Eduardo Esposito Karin 1.840.1 15865.1.1 3.104.2.7 .3.253417 .8 [id number] [facility] 2024-01-21 00:00:00 2024-01-21 12:51:22 Abstract Eduardo Esposito 1.2840.1 25322.1.1 3.104.2.7 .3.330572 .8 [id number] [facility] 2024-01-21 00:00:00 2024-01-21 12:24:12 Telephone Eduardo Esposito 1.2840.1 84211.1.1 3.104.2.7 .3.801920 .8 [id number] [facility] 2024-01-21 00:00:00 2024-01-21 00:00:00 Travel 1.2.840.1 38544.1.1 3.104.2.7 .3.750792 .8 1.2.840.114 350.1.13.10 4.2.7.3.698 084.8 [id number] [facility] 2024-01-09 11:24:00 2024-01-18 15:20:00 Hospital Encounter Micheal ChapamauraRaji garcia Chasey Ikuvbogie 1.2840.1 34697.1.1 3.104.2.7 .3.661422 .8 [id number] [facility] 2024-01-09 11:24:00 2024-01-18 15:20:00 Inpatient P ABDULLAHI, MELANIE EARLCOBY MELANIE [facility] [id number] [facility] 2024-01-17 13:30:00 2024-01-17 13:34:38 Operations Officer Trust Department Visit Melanie Fernando Brycevenita 3, [facility] Room 1.2840.1 86228.1.1 3.104.2.7 .3.672717 .8 [id number] [facility] 2024-01-17 13:30:00 2024-01-17 13:34:38 Outpatient P MADYREMELANIE CHASEY [facility] [id number] [facility] 2024-01-16 11:10:00 2024-01-16 12:10:00 Ancillary Procedure Mony De Leon 1.2840.1 85136.1.1 3.104.2.7 .3.705411 .8 [id number] [facility] 2024-01-15 15:50:00 2024-01-15 16:50:00 Ancillary Procedure Toni Dumont 1.2840.1 39451.1.1 3.104.2.7 .3.883173 .8 [id number] [facility] 2024-01-15 13:45:00 2024-01-15 14:45:00 Ancillary Procedure Toni Dumont 1.2.840.1 16616.1.1 3.104.2.7 .3.734847 .8 [id number] [facility] 2024-01-15 14:15:00 2024-01-15 14:15:00 Outpatient R JOVANYALANGEORGEEDUARDO [facility] [id number] [facility] 2024-01-14 00:00:00 2024-01-14 16:06:58 Abstract JovanyalanNayeEduardo C 1.2.840.1 49767.1.1 3.104.2.7 .3.714689 .8 [id number] [facility] 2024-01-14 11:35:00 2024-01-14 12:35:00 Ancillary Procedure Sandrajose juan Velia 1.2.840.1 91924.1.1 3.104.2.7 .3.699117 .8 [id number] [facility] 2024-01-13 14:30:00 2024-01-13 14:30:00 Outpatient R NAYE ESPOSITOOLA [facility] [id number] [facility] 2024-01-13 13:00:00 2024-01-13 13:22:52 Operations Officer Trust Department Visit Tanya Crowley 1, [facility] Room 1.2.840.1 14846.1.1 3.104.2.7 .3.674005 .8 [id number] [facility] 2024-01-13 11:35:00 2024-01-13 12:35:00 Ancillary Procedure Toni Dumont 1.2.840.1 05816.1.1 3.104.2.7 .3.303945 .8 [id number] [facility] 2024-01-11 20:00:32 2024-01-11 20:00:32 Anesthesia Event Tanner Morgan 1.2.840.1 40975.1.1 3.104.2.7 .3.177401 .8 [id number] [facility] 2024-01-09 00:00:00 2024-01-09 14:25:51 Abstract Eduardo Esposito 1.2.840.1 16723.1.1 3.104.2.7 .3.546816 .8 [id number] [facility] 2024-01-09 00:00:00 2024-01-09 14:18:10 Abstract Eduardo Esposito 1.2.840.1 02274.1.1 3.104.2.7 .3.193329 .8 [id number] [facility] 2024-01-09 10:00:00 2024-01-09 10:53:47 Operations Officer Trust Department Visit Tanya Crowley M 3, [facility] Room 1.2.840.1 32370.1.1 3.104.2.7 .3.305827 .8 [id number] [facility] 2024-01-09 10:00:00 2024-01-09 10:53:47 Outpatient P TANYA CROWLEY SHANNON [facility] [id number] [facility] 2024-01-09 00:00:00 2024-01-09 00:00:00 Travel 1.2.840.1 38634.1.1 3.104.2.7 .3.294258 .8 1.2.840.114 350.1.13.10 4.2.7.3.698 084.8 [id number] [facility] 2024-01-07 16:10:00 2024-01-07 17:10:00 Ancillary Procedure Eduardo Esposito 1.2.840.1 79216.1.1 3.104.2.7 .3.660519 .8 [id number] [facility] 2024-01-07 14:30:00 2024-01-07 16:06:45 Outpatient R ALEJANDRINAJOSELUISALANGEORGEEDUARDO [facility] [id number] [facility] 2024-01-07 15:00:00 2024-01-07 16:06:38 Routine Visit Eduardo Esposito 1.2.840.1 06610.1.1 3.104.2.7 .3.081882 .8 [id number] [facility] 2024-01-07 00:00:00 2024-01-07 00:00:00 Travel 1.2.840.1 70476.1.1 3.104.2.7 .3.907965 .8 1.2.840.114 350.1.13.10 4.2.7.3.698 084.8 [id number] [facility] 2024-01-06 11:30:00 2024-01-06 14:10:04 Operations Officer Trust Department Visit AlejandrinajoseluisalanGeorgeEduardoMony Hernandez 1.2.840.1 12892.1.1 3.104.2.7 .3.602146 .8 [id number] [facility] 2024-01-06 11:30:00 2024-01-06 14:10:04 Outpatient N MONY DE LEON, MONY KEN [facility] [id number] [facility] 2024-01-06 00:00:00 2024-01-06 00:00:00 Travel 1.2.840.1 24524.1.1 3.104.2.7 .3.682094 .8 1.2.840.114 350.1.13.10 4.2.7.3.698 084.8 [id number] [facility] 2024-01-03 10:00:00 2024-01-03 10:30:39 Operations Officer Trust Department Visit Arash Laughlin 3, [facility] Room 1.2.840.1 05573.1.1 3.104.2.7 .3.649761 .8 [id number] [facility] 2024-01-03 10:00:00 2024-01-03 10:30:39 Outpatient P ARASH LAUGHLIN, ARASH LAUGHLIN, ARASH [facility] [id number] [facility] 2024-01-02 15:02:00 2024-01-02 19:40:00 Outpatient P TANYA CROWLEY SHANNON [facility] [id number] [facility] 2024-01-02 15:02:00 2024-01-02 19:40:00 Hospital Encounter Tanya Crowley 1.2.840.1 88049.1.1 3.104.2.7 .3.512513 .8 [id number] [facility] 2024-01-02 08:30:00 2024-01-02 15:12:55 Office Visit Naomi Hernandez Ang-Rmchp-N p/High 1.2.840.1 43681.1.1 3.104.2.7 .3.495195 .8 [id number] [facility] 2024-01-02 00:00:00 2024-01-02 13:43:30 Abstract Eduardo Esposito 1.2.840.1 01538.1.1 3.104.2.7 .3.025652 .8 [id number] [facility] 2024-01-02 12:00:00 2024-01-02 13:00:00 Ancillary Procedure Naomi Hernadnez 1.2.840.1 30050.1.1 3.104.2.7 .3.315929 .8 [id number] [facility] 2024-01-02 08:30:00 2024-01-02 08:30:00 Outpatient R NAOMI HERNANDEZ KRISTIN [facility] [id number] [facility] 2024-01-02 00:00:00 2024-01-02 00:00:00 Travel 1.2.840.1 94555.1.1 3.104.2.7 .3.020366 .8 1.2.840.114 350.1.13.10 4.2.7.3.698 084.8 [id number] [facility] 2023-12-31 15:30:00 2023-12-31 16:53:09 Operations Officer Trust Department Visit Eduardo Esposito Karin 1.2.840.1 89715.1.1 3.104.2.7 .3.101185 .8 [id number] [facility] 2023-12-31 13:50:00 2023-12-31 14:50:00 Ancillary Procedure Eduardo Esposito 1.2.840.1 87783.1.1 3.104.2.7 .3.856726 .8 [id number] [facility] 2023-12-31 13:15:00 2023-12-31 13:48:04 Outpatient R EDUARDO ESPOSITO [facility] [id number] [facility] 2023-12-31 13:15:00 2023-12-31 13:48:04 Routine Visit Eduardo Esposito 1.2.840.1 55782.1.1 3.104.2.7 .3.335237 .8 [id number] [facility] 2023-12-31 00:00:00 2023-12-31 00:00:00 Travel 1.2.840.1 24180.1.1 3.104.2.7 .3.406605 .8 1.2.840.114 350.1.13.10 4.2.7.3.698 084.8 [id number] [facility] 2023-12-26 00:00:00 2023-12-26 16:51:46 Abstract Akinsipe, Eduardo C 1.2.840.1 42488.1.1 3.104.2.7 .3.689061 .8 [id number] [facility] 2023-12-23 12:49:00 2023-12-26 16:45:00 Inpatient P VELIA SUTTON FARANAK [facility] [id number] [facility] 2023-12-23 12:49:00 2023-12-26 16:45:00 Hospital Encounter Velia Sutton 1.2.840.1 44128.1.1 3.104.2.7 .3.801754 .8 [id number] [facility] 2023-12-26 13:00:00 2023-12-26 14:25:59 Operations Officer Trust Department Visit Jorge Mendiola 1, [facility] Room 1.2840.1 36761.1.1 3.104.2.7 .3.188588 .8 [id number] [facility] 2023-12-26 12:30:00 2023-12-26 13:30:00 Ancillary Procedure Toni Dumont 1.2.840.1 66024.1.1 3.104.2.7 .3.789698 .8 [id number] [facility] 2023-12-26 08:00:00 2023-12-26 08:00:00 Outpatient R EDUARDO ESPOSITO [facility] [id number] [facility] 2023-12-25 16:15:00 2023-12-25 17:15:00 Ancillary Procedure Mony De Leon 1.2.840.1 32512.1.1 3.104.2.7 .3.636324 .8 [id number] [facility] 2023-12-24 11:15:00 2023-12-24 12:15:00 Ancillary Procedure Mony De Leon 1.2.840.1 66688.1.1 3.104.2.7 .3.982089 .8 [id number] [facility] 2023-12-24 10:15:00 2023-12-24 10:15:00 Outpatient N [facility] [id number] [facility] 2023-12-23 00:00:00 2023-12-23 16:35:05 Abstract Eduardo Esposito Jagjit 1.2.840.1 47316.1.1 3.104.2.7 .3.969482 .8 [id number] [facility] 2023-12-23 11:00:00 2023-12-23 13:28:44 Outpatient P ARASH LAUGHLIN SANGEETA JAIN, SANGEETA [facility] [id number] [facility] 2023-12-23 11:00:00 2023-12-23 13:28:44 Operations Officer Trust Department Visit Arash Laughlin 2, [facility] Room 1.2.840.1 28493.1.1 3.104.2.7 .3.309355 .8 [id number] [facility] 2023-12-23 00:00:00 2023-12-23 00:00:00 Travel 1.2.840.1 38479.1.1 3.104.2.7 .3.876710 .8 1.2.840.114 350.1.13.10 4.2.7.3.698 084.8 [id number] [facility] 2023-12-20 12:00:00 2023-12-20 13:11:16 Outpatient R SANDOR DESHPANDE [facility] [id number] [facility] 2023-12-20 12:00:00 2023-12-20 13:11:16 Telemedici ne Visit Sandor Deshpande Swetha 1.2.840.1 39779.1.1 3.104.2.7 .3.881376 .8 [id number] [facility] 2023-12-18 00:00:00 2023-12-18 16:56:10 Telephone Eduardo Esposito C 1.2.840.1 67791.1.1 3.104.2.7 .3.001589 .8 [id number] [facility] 2023-12-18 00:00:00 2023-12-18 15:28:56 Abstract Eduardo Esposito C 1.2.840.1 23945.1.1 3.104.2.7 .3.272761 .8 [id number] [facility] 2023-12-17 09:15:00 2023-12-17 12:00:04 Outpatient P MELANIE FERNANDO CHASEY [facility] [id number] [facility] 2023-12-17 09:15:00 2023-12-17 12:00:04 Operations Officer Trust Department Visit Melanie Fernando toña 3, [facility] Room 1.2.840.1 24286.1.1 3.104.2.7 .3.796937 .8 [id number] [facility] 2023-12-17 00:00:00 2023-12-17 00:00:00 Travel 1.2.840.1 00317.1.1 3.104.2.7 .3.310977 .8 1.2.840.114 350.1.13.10 4.2.7.3.698 084.8 [id number] [facility] 2023-12-12 00:00:00 2023-12-12 15:51:00 Telephone Eduardo Esposito C 1.2.840.1 72132.1.1 3.104.2.7 .3.996633 .8 [id number] [facility] 2023-12-12 00:00:00 2023-12-12 13:14:45 Abstract oJvanyalanGeorgeEduardo C 1.2.840.1 42600.1.1 3.104.2.7 .3.284021 .8 [id number] [facility] 2023-12-11 15:00:00 2023-12-11 16:44:47 Outpatient R MICHEAL ThomasDARLENE [facility] [id number] [facility] 2023-12-11 15:00:00 2023-12-11 16:44:47 Operations Officer Trust Department Visit Micheal thomas Raji 1.2.840.1 59850.1.1 3.104.2.7 .3.270870 .8 [id number] [facility] [facility] 2023-12-11 00:00:00 2023-12-11 00:00:00 Travel 1.2.840.1 17648.1.1 3.104.2.7 .3.271474 .8 1.2.840.114 350.1.13.10 4.2.7.3.698 084.8 [id number] [facility] 2023-12-05 15:00:00 2023-12-05 15:28:11 Outpatient R EDUARDO ESPOSITO [facility] [id number] [facility] 2023-12-05 15:00:00 2023-12-05 15:28:11 Routine Visit Eduardo Esposito 1.2.840.1 73989.1.1 3.104.2.7 .3.219804 .8 [id number] [facility] 2023-12-05 00:00:00 2023-12-05 00:00:00 Travel 1.2.840.1 18381.1.1 3.104.2.7 .3.031526 .8 1.2.840.114 350.1.13.10 4.2.7.3.698 084.8 [id number] [facility] 2023-11-13 00:00:00 2023-11-13 16:09:59 Abstract Eduardo Esposito 1.2.840.1 21973.1.1 3.104.2.7 .3.895952 .8 [id number] [facility] 2023-11-11 08:00:00 2023-11-11 12:52:06 Outpatient TANYA CUMMINGS SHANNON [facility] [id number] [facility] 2023-11-11 08:00:00 2023-11-11 12:52:06 Operations Officer Trust Department Visit Arash Laughlin Shannon M 1.2.840.1 13412.1.1 3.104.2.7 .3.547651 .8 [id number] [facility] 2023-11-07 16:15:00 2023-11-07 16:15:38 Routine Visit Eduardo Esposito [facility] QUALITY ASSURANCE QA LAB ANA[facility]ST [facility] 1..840.114 350.1.13.10 4.2.7.2.686 [id number] 107 [id number] [facility] 2023-11-07 15:00:00 2023-11-07 15:00:00 Outpatient R EDUARDO ESPOSITO [facility] [id number] [facility] 2023-10-18 00:00:00 2023-10-18 14:44:01 Telephone Renetta Bonilla [facility] QUALITY ASSURANCE QA LAB [facility]NA[facility] 1..840.114 350.1.13.10 4.2.7.2.686 [id number] 107 [id number] [facility] 2023-10-16 14:30:00 2023-10-16 15:29:33 Outpatient R EDUARDO ESPOSITO [facility] [id number] [facility] 2023-10-16 14:30:00 2023-10-16 15:29:33 Routine Visit Eduardo Esposito [facility] QUALITY ASSURANCE QA LAB [facility] 1..840.114 350.1.13.10 4.2.7.2.686 [id number] 107 [id number] [facility] 2023-10-16 00:00:00 2023-10-16 08:40:11 Telephone Eduardo Esposito [facility] QUALITY ASSURANCE QA LAB [facility]NA[facility] 1..840.114 350.1.13.10 4.2.7.2.686 [id number] 107 [id number] [facility] 2023-10-10 15:45:00 2023-10-10 16:02:32 Outpatient R RENETTA BONILLA [facility] [id number] [facility] 2023-10-10 15:45:00 2023-10-10 16:02:32 Routine Visit Renetta Bonilla Damilola C [facility] QUALITY ASSURANCE QA LAB [facility]NA[facility] 1..840.114 350.1.13.10 4.2.7.2.686 [id number] 107 [id number] [facility] 2023-10-03 15:00:00 2023-10-03 15:00:00 Outpatient R EDUARDO ESPOSITO [facility] [id number] [facility] 2023-09-26 00:00:00 2023-09-27 08:05:22 Telephone Renetta Bonilla [facility] QUALITY ASSURANCE QA LAB [facility]NA[facility] 1..840.114 350.1.13.10 4.2.7.2.686 [id number] 107 [id number] [facility] 2023-09-24 00:00:00 2023-09-24 00:00:00 Abstract Eduardo Esposito [facility] QUALITY ASSURANCE QA LAB ANALYST [facility] ..840.114 350.1.13.10 4.2.7.2.686 [id number] 107 [id number] [facility] 2023-09-20 15:00:00 2023-09-20 15:30:31 Outpatient TONI KWOK COREY [facility] [id number] [facility] 2023-09-20 15:00:00 2023-09-20 15:30:31 Operations Officer Trust Department Visit Ultrasound, Toni Lees [facility] QUALITY ASSURANCE QA LAB [facility] 1.2840.114 350.1.13.10 4.2.7.2.686 [id number] [facility] 2023-09-12 15:00:00 2023-09-12 16:09:14 Outpatient R EDUARDO ESPOSITO [facility] [id number] [facility] 2023-09-12 15:00:00 2023-09-12 16:09:14 Routine Visit Eduardo Esposito [facility] QUALITY ASSURANCE QA LAB ANALYST [facility] 1.840.114 350.1.13.10 4.2.7.2.686 [id number] 107 [id number] [facility] 2023-09-04 00:00:00 2023-09-04 16:24:46 Telephone Eduardo Esposito [facility] QUALITY ASSURANCE QA LAB [facility]NA[facility]ST [facility] .840.114 350.1.13.10 4.2.7.2.686 [id number] 107 [id number] [facility] 2023-08-26 00:00:00 2023-08-26 10:32:54 Telephone Eduardo Esposito [facility] QUALITY ASSURANCE QA LAB ANALYST [facility] .840.114 350.1.13.10 4.2.7.2.686 [id number] 107 [id number] [facility] 2023-08-22 08:15:00 2023-08-22 10:22:22 Outpatient R EDUARDO ESPOSITO [facility] [id number] [facility] 2023-08-22 08:15:00 2023-08-22 08:30:00 Operations Officer Trust Department Visit Lab, Ross-Rmchp Eduardo Esposito Brenda A [facility] QUALITY ASSURANCE QA LAB ANALYST [facility] 1.2.840.114 350.1.13.10 4.2.7.2.686 [id number] 107 [id number] [facility] 2023-08-21 07:15:00 2023-08-21 08:02:39 Outpatient R EDUARDO ESPOSITO [facility] [id number] [facility] 2023-08-21 07:15:00 2023-08-21 08:02:39 Operations Officer Trust Department Visit Lab, NazRmchEduardo Quinteros [facility] QUALITY ASSURANCE QA LAB [facility]NA[facility] 1..840.114 350.1.13.10 4.2.7.2.686 [id number] 107 [id number] [facility] 2023-08-16 15:00:00 2023-08-16 15:05:20 Outpatient R RENETTA BONILLA [facility] [id number] [facility] 2023-08-16 15:00:00 2023-08-16 15:05:20 Nurse Visit Visit, NazRmchp Nurse Renetta Bonilla [facility] QUALITY ASSURANCE QA LAB ANA[facility]ST [facility] ..840.114 350.1.13.10 4.2.7.2.686 [id number] 107 [id number] [facility] 2023-08-15 00:00:00 2023-08-15 16:28:41 Telephone Eduardo Esposito [facility] QUALITY ASSURANCE QA LAB ANA[facility]ST [facility] 1..840.114 350.1.13.10 4.2.7.2.686 [id number] 107 [id number] [facility] 2023-08-15 11:00:00 2023-08-15 11:00:00 Outpatient R [facility] [id number] [facility] 2023-08-14 13:45:00 2023-08-14 14:53:50 Initial Visit Eduardo Esposito [facility] QUALITY ASSURANCE QA LAB [facility]NA[facility]ST [facility] 1..840.114 350.1.13.10 4.2.7.2.686 [id number] 107 [id number] [facility] 2023-08-14 13:15:00 2023-08-14 13:12:47 Outpatient R EDUARDO ESPOSITO [facility] [id number] [facility] 2023-08-08 13:28:38 2023-08-08 13:28:38 Outpatient SFA SFA [id number] Sam Conner 2023-08-08 00:00:00 2023-08-08 00:00:00 Outpatient Visit SFA [id number] Sam Conner 2023-07-22 14:54:20 2023-07-22 14:54:20 Outpatient SFA SFA [id number] Sam Conner 2023-07-22 00:00:00 2023-07-22 00:00:00 Outpatient Visit SFA [id number] Sam Conner 2023-07-18 15:38:38 2023-07-18 15:38:38 Outpatient SFA SFA [id number] Sam Conner 2023-06-19 14:31:35 2023-06-19 14:31:35 Outpatient SFA SFA [id number] Sam Conner 2023-06-17 14:30:00 2023-06-17 14:30:00 Outpatient R EDUARDO ESPOSITO [facility] [id number] [facility] 2023-05-09 08:30:00 2023-05-09 08:30:00 Outpatient R [facility] [id number] [facility] 2023-04-09 13:30:00 2023-04-09 14:13:10 Outpatient R EDUARDO ESPOSITO [facility] [id number] [facility] 2023-04-09 13:30:00 2023-04-09 13:45:00 Office Visit Eduardo Esposito [facility] QUALITY ASSURANCE QA LAB ANALYST [facility] 1.0.114 350.1.13.10 4.2.7.2.686 [id number] 107 [id number] [facility] 2023-04-09 00:00:00 2023-04-09 00:00:00 Orders Only Doctor Unassigned, Adams [facility] 1.840.114 350.1.13.10 4.2.7.2.686 [id number] [facility] 2023-02-22 13:37:01 2023-02-22 13:37:01 Outpatient SFA SFA [id number] Sam Conner 2023-01-24 09:30:00 2023-01-24 09:30:00 Outpatient R [facility] [id number] [facility] 2022-12-28 09:00:00 2022-12-28 09:19:40 Outpatient R RENETTA BONILLA [facility] [id number] [facility] 2022-12-28 09:00:00 2022-12-28 09:19:40 Office Visit Renetta Bonilla [facility] QUALITY ASSURANCE QA LAB ANALYST [facility] 1..114 350.1.13.10 4.2.7.2.686 [id number] 107 [id number] [facility] 2022-12-28 08:30:00 2022-12-28 08:30:00 Outpatient R RENETTA BONILLA [facility] [id number] [facility] 2022-11-09 10:00:09 2022-11-09 10:00:09 Outpatient SFA SFA [id number] Sam Conner 2022-10-18 09:30:00 2022-10-18 10:00:00 Office Visit Sea Richard, [facility] 1.840.114 350.1.13.10 4.2.7.2.686 [id number] [facility] 2022-10-18 09:30:00 2022-10-18 09:30:00 Outpatient R AMRIXA HANLEY [facility] [id number] [facility] 2022-10-12 13:50:37 2022-10-12 13:50:37 Outpatient SFA [facility] [id number] Sam Conner 2022-10-03 10:30:00 2022-10-03 10:30:00 Outpatient R [facility] [id number] [facility] 2022-09-28 09:00:00 2022-09-28 09:31:13 Outpatient R RENETTA BONILLA [facility] [id number] [facility] 2022-09-28 09:00:00 2022-09-28 09:31:13 Office Visit Renetta Bonilla [facility] QUALITY ASSURANCE QA LAB ANALYST [facility] 1.2.840.114 350.1.13.10 4.2.7.2.686 [id number] 107 [id number] [facility] 2022-09-18 00:00:00 2022-09-18 00:00:00 Telephone Eduardo Esposito [facility] QUALITY ASSURANCE QA LAB ANA[facility]ST [facility] 1.2.840.114 350.1.13.10 4.2.7.2.686 [id number] 107 [id number] [facility] 2022-08-17 14:30:00 2022-08-17 14:30:00 Outpatient R EDUARDO ESPOSITO [facility] [id number] [facility] 2022-08-17 14:30:00 2022-08-17 14:30:00 Outpatient R EDUARDO ESPOSITO [facility] [id number] [facility] 2022-08-10 14:30:00 2022-08-10 14:30:00 Outpatient R SEEMA TORRE [facility] [id number] [facility] 2022-08-01 14:18:05 2022-08-01 14:18:05 Outpatient SFA [facility] [id number] Sam Conner 2022-07-31 00:00:00 2022-07-31 00:00:00 Orders Only Doctor Unassigned, Adams [facility] 1..840.114 350.1.13.10 4.2.7.2.686 [id number] [facility] 2022-07-30 14:16:39 2022-07-30 14:16:39 Outpatient SFA [facility] [id number] Sam Conner 2022-07-11 10:30:00 2022-07-11 11:24:25 Outpatient R EDUARDO ESPOSITO [facility] [id number] [facility] 2022-07-11 10:30:00 2022-07-11 11:24:25 Nurse Visit Visit, Ross-Rmchp Nurse Eduardo Esposito [facility] QUALITY ASSURANCE QA LAB ANA[facility]ST [facility] ..840.114 350.1.13.10 4.2.7.2.686 [id number] 107 [id number] [facility] 2022-07-02 16:09:03 2022-07-02 16:09:03 Outpatient SFA [facility] [id number] Sam Conner 2022-06-28 09:20:52 2022-06-28 09:20:52 Outpatient [facility] [id number] Sam Conner 2022-06-25 10:01:05 2022-06-25 10:01:05 Outpatient [facility] [id number] Sam Conner 2022-04-18 10:45:00 2022-04-18 11:31:26 Outpatient R EDUARDO ESPOSITO [facility] [id number] [facility] 2022-04-18 10:45:00 2022-04-18 11:31:26 Office Visit Eduardo Esposito [facility] QUALITY ASSURANCE QA LAB ANA[facility]ST [facility] ..840.114 350.1.13.10 4.2.7.2.686 [id number] 107 [id number] [facility] 2022-04-13 00:00:00 2022-04-13 00:00:00 Telephone Eduardo Esposito [facility] QUALITY ASSURANCE QA LAB ANA[facility]ST [facility] 1.2.840.114 350.1.13.10 4.2.7.2.686 [id number] 107 [id number] [facility] 2022-04-12 00:00:00 2022-04-12 00:00:00 Telephone Eduardo Esposito [facility] QUALITY ASSURANCE QA LAB ANALYST [facility] 1.2840.114 350.1.13.10 4.2.7.2.686 [id number] [facility] 2022-04-05 13:30:00 2022-04-05 14:35:23 Outpatient R EDUARDO ESPOSITO [facility] [id number] [facility] 2022-04-05 13:30:00 2022-04-05 14:35:23 Office Visit Eduardo Esposito [facility] QUALITY ASSURANCE QA LAB ANALYST [facility] 1.284.114 350.1.13.10 4.2.7.2.686 [id number] [facility] 2022-04-05 13:00:00 2022-04-05 13:00:00 Outpatient R EDUARDO ESPOSITO [facility] [id number] [facility] 2022-04-05 00:00:00 2022-04-05 00:00:00 Orders Only Doctor Unassigned, Adams [facility] 1.2840.114 350.1.13.10 4.2.7.2.686 [id number] [facility] Results Test Description Test Time Test Comments Results Result Co mments Source [facility] SPECIFIC [id number] 17:37:00* Test Item Value Reference Range Interpretation Comme nts POCT U SP GRAV (test code = 3255) . 1.005-1.025 POCT PH U (test code = 3254) . 5-8 POCT U LEUK EST (test code = 3263) . Negative - N egative POCT U NIT (test code = 3262) . Negative - Negati ve POCT U PROT (test code = 3259) trace Negative - Negat mana POCT U GLU (test code = 3256) neg Negative - Negati ve POCT U KETONE (test code = 3258) . Negative - Neg ative POCT U UROBILI (test code = 3260) . 0.2-1 POCT U BILI (test code = 3261) . Negative - Negat mana POCT U BLD (test code = 3257) . Negative - Negati ve POCT U COLOR (test code = 3266) . POCT U APPEAR (test code = 3267) [facility] (D) IMMUNE [id number] 01:23:34* Test Item Value Reference Range Interpretation Comme [facility] RHIG CANDIDATE? (test code = 5188) Yes- see comment A Patient is a candidate for RhIg- Patient is Rh Negative and baby is Rh Positive.Performe d at [facility] Laboratory Services - [facility] Blood [address] [address]Qcqn Free: [phone] No. [id number] Lab Interpretation (test code = 72246-3) Abnormal [facility] (D) IMMUNE [id number] 01:23:34* Test Item Value Reference Range Interpretation Comme [facility] RHIG CANDIDATE? (test code = 5188) Yes- see comment A Patient is a candidate for RhIg- Patient is Rh Negative and baby is Rh Positive.Performe d at [facility] Laboratory Services - [facility] Blood [address] [address]Ggsl Free: [phone] No. [id number] Lab Interpretation (test code = 68921-1) Abnormal [facility] [id number] 17:39:09* Test Item Value Reference Range Interpretation Comme [facility] VENOUS BASE EXCESS, CORD (te st code = 3401905463) -4.5 mEq/L VENOUS PH, CORD (test code = 6465923310) 7.35 7.25-7.45 VENOUS PC02, CORD (test code = 2490359765) 39 27-49 VENOUS PO2, CORD (test code = 5341274250) -41 VENOUS BICARBONATE, CORD (te st code = 5397291597) [facility] [id number] 17:39:09* Test Item Value Reference Range Interpretation Comme nts VENOUS BASE EXCESS, CORD (te st code = 6900679010) -4.5 mEq/L VENOUS PH, CORD (test code = 6894427768) 7.35 7.25-7.45 VENOUS PC02, CORD (test code = 5472565650) 39 27-49 VENOUS PO2, CORD (test code = 3743156155) 28 - VENOUS BICARBONATE, CORD (te st code = 3144302522) 03-22 [facility] [id number] 17:04:00 Leeroy De La Vega MD ? ? 02/13/2024 11:29 AM Central Neuraxial Block Date/Time: 02/13/2024 11:04 AM Performed by: Leeroy De La Vega MDAuthorized by: Brent Lees MD ?Patient Location: [facility] Time: 02/13/2024 11:04 AMReason for Block: OB request, Patient request and Surgical anesthesiaStaff: ?Anesthesiologist: Brent Lees MD ?Resident/SURGERY CENTER ADMINISTRATOR: Leeroy De La Vega MD ?Performed by: resident/CRNAPreanesthetic Checklist: patient identified, risks and benefits explained, monitors and equipment checked, timeout performed, pre-op evaluation, anesthesia consent, IV checked, surgical consent and site markedProcedure: ?Type of Neuraxial: Single Shot and Spinal ? Sterility Prep cap, gloves, gown, hand hygiene and mask ?Patient Position: sitting ?Prep: Betadine and patient draped ? ?Monitoring: heart rate, monitoring specialist / EKG, continuous pulse ox, heart rate / toco and NIBP ?Location: lumbar (1-5) ?Lumbar: L4-L5 ?Approach: midline ? ?Technique: single shot ?Guidance with: landmark technique} Epidural/Spinal [place] and/or Catheter: ?Epidural/Spinal Kit: BBraun ?Needle Type: Kayce ?Needle Gauge: 25 G ?Needle Length: 3.5 in (8.89 cm) ?Number of Attempts: 1Assessment: ?Sensory Level: above T10 ?Thoracic: T4 ?Block Outcome: patient comfortable, patient satisfied, patient tolerated procedure well, successful block and no apparent complications ? ?Events: cerebrospinal fluid ?Procedure Assessment: patient tolerated procedure well with no complications [facility] [id number] 08:39:19* Test Item Value Reference Range Interpretation Comme nts ANTIBODY (test code = 683) Anti-D Probable RhIg Rhogam on 12/23/23Performed at [facility] Laboratory [address] Free: [phone] No. [id number] [facility] [id number] 08:39:19* Test Item Value Reference Range Interpretation Comme nts ANTIBODY (test code = 683) Anti-D Probable RhIg Rhogam on 12/23/23Performed at [facility] Laboratory [address] Free: [phone] No. [id number] [facility]Stress [id number] 00:48:28 Overall reactive NST with rare mild variables with recovery to baseline and reactivity thereafter. Rare contractions. BPP/Doppler today and twice weekly Continue serial NST while inpatient. Mony De Leon MD ?02/06/2024 ?6:48 PMMFM [facility] R/O [id number] 11:28:43* Test Item Value Reference Range Interpretation Comme nts ANTIBODY (test code = 683) Anti-D Probable RhIg Patient received RhIg on 12/23/23.Performed at [facility] Laboratory [address] Free: [phone] No. [id number] [facility]-D R/O [id number] 11:28:43* Test Item Value Reference Range Interpretation Comme nts ANTIBODY (test code = 683) Anti-D Probable RhIg Patient received RhIg on 12/23/23.Performed at [facility] Laboratory Services - [facility] Blood [address] [address]Ontm Free: [phone] No. [id number] [facility] WITH [id number] 11:16:29* Test Item Value Reference Range Interpretation Comme nts WBC (test code = 6690-2) 10.71 4.30-11.10 RBC (test code = 789-8) 4.24 3.93-5.25 HGB (test code = 718-7) 12.0 g/dL 11.6-15.0 HCT (test code = 4544-3) 37.3 % 35.7-45.2 MCV (test code = 787-2) 88.0 fL 80.6-95.5 MCH (test code = 785-6) 28.3 pg 25.9-32.8 MCHC (test code = 786-4) 32.2 g/dL 31.6-35.1 RDW-SD (test code = 73906-0) 42.2 fL 39.0-49.9 RDW-CV (test code = 788-0) 13.3 % 12.0-15.5 PLT (test code = 777-3) 179 166-358 MPV (test code = 80761-8) 11.2 fL 9.5-12.9 NRBC/100 WBC (test code = 2169186226) 0.0 0.0-10.0 NRBC x10^3 (test code = 9402596676) See_Comment [Automated messa ge] The system which generated this result transmitted reference range: 10*3/?L. The reference range was not used to interpret this result as normal/abnormal. GRAN MAT (NEUT) % (test code = 770-8) 51.4 % IMM GRAN % (test code = 3061402217) 0.50 % LYMPH % (test code = 736-9) 38.4 % MONO % (test code = 5905-5) 8.7 % EOS % (test code = 713-8) 0.6 % BASO % (test code = 706-2) 0.4 % GRAN MAT x10^3(ANC) (test code = 5710156919) 5.52 10*3/uL 1.88-7.09 IMM GRAN x10^3 (test code = 9425848150) 0.05 10*3/uL 0.00-0.06 LYMPH x10^3 (test code = 731-0) 4.11 10*3/uL 1.32-3.29 H MONO x10^3 (test code = 742-7) 0.93 10*3/uL 0.33-0.92 H EOS x10^3 (test code = 711-2) 0.06 10*3/uL 0.03-0.39 BASO x10^3 (test code = 704-7) 0.04 10*3/uL 0.01-0.07 Lab Interpretation (test code = 13683-5) Abnormal [facility] WITH [id number] 11:16:29* Test Item Value Reference Range Interpretation Comme nts WBC (test code = 6690-2) 10.71 4.30-11.10 RBC (test code = 789-8) 4.24 3.93-5.25 HGB (test code = 718-7) 12.0 g/dL 11.6-15.0 HCT (test code = 4544-3) 37.3 % 35.7-45.2 MCV (test code = 787-2) 88.0 fL 80.6-95.5 MCH (test code = 785-6) 28.3 pg 25.9-32.8 MCHC (test code = 786-4) 32.2 g/dL 31.6-35.1 RDW-SD (test code = 23383-2) 42.2 fL 39.0-49.9 RDW-CV (test code = 788-0) 13.3 % 12.0-15.5 PLT (test code = 777-3) 179 166-358 MPV (test code = 05079-0) 11.2 fL 9.5-12.9 NRBC/100 WBC (test code = 7060571216) 0.0 0.0-10.0 NRBC x10^3 (test code = 4820552326) See_Comment [Automated messa ge] The system which generated this result transmitted reference range: 10*3/?L. The reference range was not used to interpret this result as normal/abnormal. GRAN MAT (NEUT) % (test code = 770-8) 51.4 % IMM GRAN % (test code = 3963727600) 0.50 % LYMPH % (test code = 736-9) 38.4 % MONO % (test code = 5905-5) 8.7 % EOS % (test code = 713-8) 0.6 % BASO % (test code = 706-2) 0.4 % GRAN MAT x10^3(ANC) (test code = 0102481010) 5.52 10*3/uL 1.88-7.09 IMM GRAN x10^3 (test code = 4117938859) 0.05 10*3/uL 0.00-0.06 LYMPH x10^3 (test code = 731-0) 4.11 10*3/uL 1.32-3.29 H MONO x10^3 (test code = 742-7) 0.93 10*3/uL 0.33-0.92 H EOS x10^3 (test code = 711-2) 0.06 10*3/uL 0.03-0.39 BASO x10^3 (test code = 704-7) 0.04 10*3/uL 0.01-0.07 Lab Interpretation (test code = 02077-9) [id number] 10:58:01* Test Item Value Reference Range Interpretation Comme nts CREATININE (test code = 2160-0) 0.49 mg/dL 0.50-1.04 L eGFR (test code = 35994-1) 132.7 mL/min/1.73m2 CKD-EPI eGFR (2020). Assuming creatinine has been stable day-to-day for at least three months, the eGFR indicates Category G1 (>= 90 mL/min/1.73 m2) Lab Interpretation (test code = 40789-9) [facility] AM[facility] TRANSFERASE([id number] 10:58:01* Test Item Value Reference Range Interpretation Comme nts ALTv (test code = 1742-6) 21 U/L 5-35 Lab Interpretation (test cod e = 57820-9) Normal [facility]neyLACT[facility] [id number] 10:58:01* Test Item Value Reference Range Interpretation Comme nts LDH (test code = 4294000166) 175 U/L 120-246 Lab Interpretation (test cod e = 70066-9) Normal [facility] AC[facility] [id number] 10:58:01* Test Item Value Reference Range Interpretation Comme nts URIC ACID (test code = 0885072777) 5.3 mg/dL 2.9-6.0 Lab Interpretation (test cod e = 71445-6) [facility] [id number] 10:58:01* Test Item Value Reference Range Interpretation Comme nts URIC ACID (test code = 9117730870) 5.3 mg/dL 2.9-6.0 Lab Interpretation (test cod e = 48449-1) Normal [facility]neyCREAT[facility] [id number] 10:58:01* Test Item Value Reference Range Interpretation Comme nts CREATININE (test code = 2160-0) 0.49 mg/dL 0.50-1.04 L eGFR (test code = 19452-4) 132.7 mL/min/1.73m2 CKD-EPI eGFR (2020). Assuming creatinine has been stable day-to-day for at least three months, the eGFR indicates Category G1 (>= 90 mL/min/1.73 m2) Lab Interpretation (test code = 08250-1) [facility]normal [facility] AMINO TRANSFERASE([id number] 10:58:01* Test Item Value Reference Range Interpretation Comme nts ALTv (test code = 1742-6) 21 U/L 5-35 Lab Interpretation (test cod e = 46773-4) [facility]CT[facility] [id number] 10:58:01* Test Item Value Reference Range Interpretation Comme nts LDH (test code = 0631532889) 175 U/L 120-246 Lab Interpretation (test cod e = 81529-9) [facility] McKinneyFetal HGB Stain/KB Rafou3528-94-26 10:10:00* Test Item Value Reference Range Interpretation Comme nts HGB STAIN (test code = 843) Negative RHIG REQUIRED? (test code = 1747) 1 Syringe Patient is a candidate for RhIg- Patient is Rh Negative and currently . BLEED IN MLS (test code = 5045) See comment 0.0mLs Bleed [facility] McKinneyFetal HGB Stain/KB [id number] 10:10:00* Test Item Value Reference Range Interpretation Comme nts HGB STAIN (test code = 843) Negative RHIG REQUIRED? (test code = 1747) 1 Syringe Patient is a candidate for RhIg- Patient is Rh Negative and currently . BLEED IN MLS (test code = 5045) See comment 0.0mLs Bleed [facility]neyType and Screen - ONCE [id number] 10:10:00* Test Item Value Reference Range Interpretation Comme nts ABO & RH (test code = 20) O NEGATIVE IAT (test code = 1185) Positive [facility]ney[facility] Screen - ONCE Agtvaey1321-05-52 10:10:00* Test Item Value Reference Range Interpretation Comme nts ABO & RH (test code = 20) O NEGATIVE IAT (test code = 1185) Positive [facility]neyANTI-D R/O [id number] 07:59:27* Test Item Value Reference Range Interpretation Comme nts ANTIBODY (test code = 683) Anti-D Probable RhIg patient received RhIg on 12/23/23.Performed at [facility] Laboratory Services [facility] Blood [address] [address]Qojd Free: [phone] No. [id number] [facility]neyANTI-D R/O [id number] 07:59:27* Test Item Value Reference Range Interpretation Comme nts ANTIBODY (test code = 683) Anti-D Probable RhIg patient received RhIg on 12/23/23.Performed at [facility] Laboratory Services [facility] Blood [address] [address]Igjt Free: [phone] No. [id number] [facility]neyANTI-D R/O [id number] 07:53:43* Test Item Value Reference Range Interpretation Comme nts ANTIBODY (test code = 683) Anti-D Probable RhIg Rhogam on 12/23/2023erformed at [facility] Laboratory Services [address] [address]Wilc Free: [phone] No. [id number] [facility] BranchANTI-D R/O [id number] 07:53:43* Test Item Value Reference Range Interpretation Comme nts ANTIBODY (test code = 683) Anti-D Probable RhIg Rhogam on 12/23/2023erformed at [facility] Laboratory Services [address] [address]Vgmu Free: [phone] No. [id number] [facility]neyANTI-D R/O [id number] 04:36:01* Test Item Value Reference Range Interpretation Comme nts ANTIBODY (test code = 683) Anti-D Probable RhIg Rhlg received on 12/23/2023erformed at [facility] Laboratory Services [address] [address]Vpny Free: [phone] No. [id number] [facility]-D R/O [id number] 04:36:01* Test Item Value Reference Range Interpretation Comme nts ANTIBODY (test code = 683) Anti-D Probable RhIg Rhlg received on 12/23/2023erformed at [facility] Laboratory Services [address] [address]Aafy Free: [phone] No. [id number] [facility]-D R/O [id number] 02:54:47* Test Item Value Reference Range Interpretation Comme nts ANTIBODY (test code = 683) Anti-D Probable RhIg RhIg received 12/23/2023.Performed at [facility] Laboratory Services [address] [address]Zxam Free: [phone] No. [id number] [facility] BranchANTI-D R/O [id number] 02:54:47* Test Item Value Reference Range Interpretation Comme nts ANTIBODY (test code = 683) Anti-D Probable RhIg RhIg received 12/23/2023.Performed at [facility] Laboratory Services - [facility] Blood [address] [address]Rena Free: [phone] No. [id number] [facility]neyURIC ACID [id number] 01:48:40* Test Item Value Reference Range Interpretation Comme nts URIC ACID (test code = 8172142071) 5.2 mg/dL 2.9-6.0 Lab Interpretation (test cod e = 41138-8) Normal [facility]neyCREATININE [id number] 01:48:40* Test Item Value Reference Range Interpretation Comme nts CREATININE (test code = 2160-0) 0.48 mg/dL 0.50-1.04 L eGFR (test code = 92850-2) 134.2 mL/min/1.73m2 CKD-EPI eGFR (2020). Assuming creatinine has been stable day-to-day for at least three months, the eGFR indicates Category G1 (>= 90 mL/min/1.73 m2) Lab Interpretation (test code = 98311-0) Abnormal [facility] McKinneySGOT (ASPARTATE AMINO TRANSFER)2024-01-22 01:48:40* Test Item Value Reference Range Interpretation Comme nts AST(SGOT) (test code = 6918457083) 35 U/L 13-40 Lab Interpretation (test cod e = 93114-1) Normal [facility]neyAL[facility]INE AMINO TRANSFERASE([id number] 01:48:40* Test Item Value Reference Range Interpretation Comme nts ALTv (test code = 1742-6) 23 U/L 5-35 Lab Interpretation (test cod e = 20340-9) Normal [facility]neyUR[facility] ACID [id number] 01:48:40* Test Item Value Reference Range Interpretation Comme nts URIC ACID (test code = 0265156329) 5.2 mg/dL 2.9-6.0 Lab Interpretation (test cod e = 80136-4) Normal [facility]neyCREATINRE[facility] [id number] 01:48:40* Test Item Value Reference Range Interpretation Comme nts CREATININE (test code = 2160-0) 0.48 mg/dL 0.50-1.04 L eGFR (test code = 91835-8) 134.2 mL/min/1.73m2 CKD-EPI eGFR (2020). Assuming creatinine has been stable day-to-day for at least three months, the eGFR indicates Category G1 (>= 90 mL/min/1.73 m2) Lab Interpretation (test code = 08231-0) Abnormal [facility]neySG[facility] (ASPARTATE AMINO TRANSFER)2024-01-22 01:48:40* Test Item Value Reference Range Interpretation Comme nts AST(SGOT) (test code = 1220879609) 35 U/L 13-40 Lab Interpretation (test cod e = 93422-2) Normal [facility] AMINO TRANSFERASE([id number] 01:48:40* Test Item Value Reference Range Interpretation Comme nts ALTv (test code = 1742-6) 23 U/L 5-35 Lab Interpretation (test cod e = 82282-5) Normal [facility]neyLACTATE [id number] 01:48:20* Test Item Value Reference Range Interpretation Comme nts LDH (test code = 7402152950) 189 U/L 120-246 Lab Interpretation (test cod e = 45156-0) Normal [facility]neyLAVTATE [id number] 01:48:20* Test Item Value Reference Range Interpretation Comme nts LDH (test code = 0430899989) 189 U/L 120-246 Lab Interpretation (test cod e = 70908-5) Normal [facility] McKinneyCBC WITH [id number] 01:34:17* Test Item Value Reference Range Interpretation Comme nts WBC (test code = 6690-2) 10.99 4.30-11.10 RBC (test code = 789-8) 4.55 3.93-5.25 HGB (test code = 718-7) 13.1 g/dL 11.6-15.0 HCT (test code = 4544-3) 38.7 % 35.7-45.2 MCV (test code = 787-2) 85.1 fL 80.6-95.5 MCH (test code = 785-6) 28.8 pg 25.9-32.8 MCHC (test code = 786-4) 33.9 g/dL 31.6-35.1 RDW-SD (test code = 92880-5) 42.8 fL 39.0-49.9 RDW-CV (test code = 788-0) 13.8 % 12.0-15.5 PLT (test code = 777-3) 237 166-358 MPV (test code = 92021-4) 10.3 fL 9.5-12.9 NRBC/100 WBC (test code = 8952289794) 0.0 0.0-10.0 NRBC x10^3 (test code = 8155064064) See_Comment [Automated messa ge] The system which generated this result transmitted reference range: 10*3/?L. The reference range was not used to interpret this result as normal/abnormal. GRAN MAT (NEUT) % (test code = 770-8) 51.7 % IMM GRAN % (test code = 2399161871) 0.40 % LYMPH % (test code = 736-9) 38.8 % MONO % (test code = 5905-5) 8.2 % EOS % (test code = 713-8) 0.4 % BASO % (test code = 706-2) 0.5 % GRAN MAT x10^3(ANC) (test code = 3609280817) 5.70 10*3/uL 1.88-7.09 IMM GRAN x10^3 (test code = 4926457137) 0.04 10*3/uL 0.00-0.06 LYMPH x10^3 (test code = 731-0) 4.26 10*3/uL 1.32-3.29 H MONO x10^3 (test code = 742-7) 0.90 10*3/uL 0.33-0.92 EOS x10^3 (test code = 711-2) 0.04 10*3/uL 0.03-0.39 BASO x10^3 (test code = 704-7) 0.05 10*3/uL 0.01-0.07 Lab Interpretation (test code = 25624-8) Abnormal [facility] WITH [id number] 01:34:17* Test Item Value Reference Range Interpretation Comme nts WBC (test code = 6690-2) 10.99 4.30-11.10 RBC (test code = 789-8) 4.55 3.93-5.25 HGB (test code = 718-7) 13.1 g/dL 11.6-15.0 HCT (test code = 4544-3) 38.7 % 35.7-45.2 MCV (test code = 787-2) 85.1 fL 80.6-95.5 MCH (test code = 785-6) 28.8 pg 25.9-32.8 MCHC (test code = 786-4) 33.9 g/dL 31.6-35.1 RDW-SD (test code = 17415-3) 42.8 fL 39.0-49.9 RDW-CV (test code = 788-0) 13.8 % 12.0-15.5 PLT (test code = 777-3) 237 166-358 MPV (test code = 57931-4) 10.3 fL 9.5-12.9 NRBC/100 WBC (test code = 2193089354) 0.0 0.0-10.0 NRBC x10^3 (test code = 1222314007) See_Comment [Automated messa ge] The system which generated this result transmitted reference range: 10*3/?L. The reference range was not used to interpret this result as normal/abnormal. GRAN MAT (NEUT) % (test code = 770-8) 51.7 % IMM GRAN % (test code = 5417601279) 0.40 % LYMPH % (test code = 736-9) 38.8 % MONO % (test code = 5905-5) 8.2 % EOS % (test code = 713-8) 0.4 % BASO % (test code = 706-2) 0.5 % GRAN MAT x10^3(ANC) (test code = 7364695046) 5.70 10*3/uL 1.88-7.09 IMM GRAN x10^3 (test code = 2688065711) 0.04 10*3/uL 0.00-0.06 LYMPH x10^3 (test code = 731-0) 4.26 10*3/uL 1.32-3.29 H MONO x10^3 (test code = 742-7) 0.90 10*3/uL 0.33-0.92 EOS x10^3 (test code = 711-2) 0.04 10*3/uL 0.03-0.39 BASO x10^3 (test code = 704-7) 0.05 10*3/uL 0.01-0.07 Lab Interpretation (test code = 30353-3) [facility]normal [facility]neyType [facility] Screen - STAT [id number] 00:58:00* Test Item Value Reference Range Interpretation Comme nts ABO & RH (test code = 20) O NEGATIVE IAT (test code = 1185) Positive [facility] and Screen - STAT [id number] 00:58:00* Test Item Value Reference Range Interpretation Comme nts ABO & RH (test code = 20) O NEGATIVE IAT (test code = 1185) Positive [facility]neyANTI-D R/O [id number] 06:24:00* Test Item Value Reference Range Interpretation Comme nts ANTIBODY (test code = 683) Anti-D Probable RhIg Patient received RhIg on 12/23/23.Performed at [facility] Laboratory Services [facility] Blood [address] [address]Spbl Free: [phone] No. [id number] [facility] and Screen - ONCE [id number] 05:06:00* Test Item Value Reference Range Interpretation Comme nts ABO & RH (test code = 20) O NEGATIVE IAT (test code = 1185) Positive [facility] McKinneyCbc with [id number] 23:31:38* Test Item Value Reference Range Interpretation Comme nts WBC (test code = 6690-2) 8.94 4.30-11.10 RBC (test code = 789-8) 4.03 3.93-5.25 HGB (test code = 718-7) 11.5 g/dL 11.6-15.0 L HCT (test code = 4544-3) 34.9 % 35.7-45.2 L MCV (test code = 787-2) 86.6 fL 80.6-95.5 MCH (test code = 785-6) 28.5 pg 25.9-32.8 MCHC (test code = 786-4) 33.0 g/dL 31.6-35.1 RDW-SD (test code = 43680-6) 43.3 fL 39.0-49.9 RDW-CV (test code = 788-0) 13.8 % 12.0-15.5 PLT (test code = 777-3) 211 166-358 MPV (test code = 53641-9) 12.5 fL 9.5-12.9 NRBC/100 WBC (test code = 5354295996) 0.0 0.0-10.0 NRBC x10^3 (test code = 5346899635) See_Comment [Automated messa ge] The system which generated this result transmitted reference range: 10*3/?L. The reference range was not used to interpret this result as normal/abnormal. GRAN MAT (NEUT) % (test code = 770-8) 63.2 % IMM GRAN % (test code = 7665921853) 0.70 % LYMPH % (test code = 736-9) 27.9 % MONO % (test code = 5905-5) 7.0 % EOS % (test code = 713-8) 0.8 % BASO % (test code = 706-2) 0.4 % GRAN MAT x10^3(ANC) (test code = 9920679750) 5.65 10*3/uL 1.88-7.09 IMM GRAN x10^3 (test code = 1517652555) 0.06 10*3/uL 0.00-0.06 LYMPH x10^3 (test code = 731-0) 2.49 10*3/uL 1.32-3.29 MONO x10^3 (test code = 742-7) 0.63 10*3/uL 0.33-0.92 EOS x10^3 (test code = 711-2) 0.07 10*3/uL 0.03-0.39 BASO x10^3 (test code = 704-7) 0.04 10*3/uL 0.01-0.07 Lab Interpretation (test code = 67358-8) Abnormal [facility]ney[facility]-D R/O [id number] 14:43:49* Test Item Value Reference Range Interpretation Comme nts ANTIBODY (test code = 683) Anti-D Probable RhIg Anti-D due to RhIg received on 12/23/2023.Performed at [facility] Laboratory Services [address] Free: [phone] No. [id number] [facility] McKinneySyphilis IgG/[id number] 14:08:11* Test Item Value Reference Range Interpretation Comme nts Syphilis IgG/IgM (test code = 62549-5) Non-reactive Non-reactive KRISTINA (test code = KRISTINA) Non-reactive - No serologic evidence of T. pallidum infection. Cannot exclude incubating or early syphilis. Submit a second specimen in 2-4 weeks if syphilis is clinically suspected. Equivocal - Further testing to follow. Reactive - Further testing to follow. Lab Interpretation (test code = 14664-3) Normal [facility]neyANTI-D R/O [id number] 19:38:47* Test Item Value Reference Range Interpretation Comme nts ANTIBODY (test code = 683) Anti-D Probable RhIg RhIg received 12/23/23Performed at [facility] Laboratory Services [address] Free: [phone] No. [id number] [facility] McKinneyHepatitis B Surface [id number] 19:12:37 * Test Item Value Reference Range Interpretation Comme nts HBsAg Semi-Quantitative (ada t code = 5195-3) 0.11 Negative [facility] McKinneyGlucose Oruzmmq6264-00-75 04:47:08* Test Item Value Reference Range Interpretation Comme nts GLU FASTNG (test code = 4758321943) 65 mg/dL 70-110 L Lab Interpretation (test cod e = 18852-7) Abnormal [facility]1 HR GLUCOSE TOLERANCE [id number] 04:47:08 * Test Item Value Reference Range Interpretation Comme nts GLUC 1 HR (test code = 2754364139) 148 mg/dL 120-170 Lab Interpretation (test cod e = 95759-6) Normal [facility]3 HR GLUCOSE TOLERANCE [id number] 04:35:07 * Test Item Value Reference Range Interpretation Comme nts GLUC 3 HR (test code = 7967250214) 107 mg/dL 70-110 Lab Interpretation (test cod e = 51632-8) Normal [facility]2 HR GLUCOSE TOLERANCE [id number] 04:32:25 * Test Item Value Reference Range Interpretation Comme nts GLUC 2 HR (test code = 1632094088) 120 mg/dL 70-120 Lab Interpretation (test cod e = 86535-6) Normal [facility] McKinneyPARVOVIRUS B19 DNA, QL REAL TIME PCR-Q 2024-01-03 00:00:00* Test Item Value Reference Range Interpretation Comments SOURCE-Q (test code = 65451-6) AMNIOTIC FLUID PARVOVIRUS B19 DNA, QL REAL TIME PCR-Q (test code = 9571-1) NOT DETECTED The primers/prob e used in this assay will detectparvovirus B19 and V9 (genotypes 1 & 3) but maynot detect parvovirus genotype 2. The majorityof circulating Parvovirus B19 strains in [facility] are genotype 1. Genotype 2 is notbelieved to circulate widely in the [facility],but has been associated with similar clinicalfeatures as genotype 1. Genotype 3 is mostprevalent in some countries.REFERENCE RANGE: NOT DETECTED This test was developed and its analytical performancecharacteristics have been determined by [employer].It has not been cleared or approved by FDA. This assay hasbeen validated pursuant to the CLIA regulations and isused for clinical purposes. KRISTINA (test code = KRISTINA) PERFORMED BY [facility]; [address] [place] [address]; MAIRA MARTIN MD,P MIRYAM,GILLIAN [facility] McKinneyCYTOMEGALOVIRUS DNA, QL REAL TIME PCR-Q 2024-01-03 00:00:00* Test Item Value Reference Range Interpretation Comments SOURCE-Q (test code = 64973-8) AMNIOTIC FLUID CYTOMEGALOVIRUS DNA, QL REAL TIME PCR-Q (test code = 5000-5) NOT DETECTED REFERENCE RANGE: NOT DETECTED This test was developed and its analytical performancecharacteristics have been determined by [employer].It has not been cleared or approved by FDA. This assay hasbeen validated pursuant to the CLIA regulations and isused for clinical purposes. KRISTINA (test code = KRISTINA) PERFORMED BY [facility]/ [facility]; [address] [place] [address]; MAIRA MARTIN MD, PHD,GILLIAN [facility] HospitalROMOSOME STUDY, AMNIOTIC [id number] 00:00:00* Test Item Value Reference Range Interpretation Comme nts CHROMOSOME, AMNIOTIC FLUID-Q (test code = 34303-0) See Below Order ID: ? [id number] Specimen Type: ?Amniotic Fluid Clinical Indication: ? ? ?Abnormal ultrasound - FGR and pyelectasis RESULT:NORMAL FEMALE KARYOTYPE INTERPRETATION:Chromoso me analysis revealed normal G-band patterns withinthe limits of standard cytogenetic analysis. Please expect the results of any other concurrent study in aseparate report. NOMENCLATURE:46,XX ASSAY INFORMATION:Method: ? G-BandingCells Counted: ?15Colonies Counted: ? 15Band Level: ? 450Cells Analyzed: ? 6Cells Karyotyped: ? 6 This test does not address genetic disorders that cannot bedetected by standard cytogenetic methods, or rare eventssuch as low level mosaicism or subtle rearrangements. Maternal cell contamination is a potential limitation ofthis test. For chorionic villus samples, there is a possibility thatthe result may not represent the fetus due to confinedplacental mosaicism. Wilmar Engel, PhD, [facility] ? ? [phone] [place] Electronic Signature: ? 01/02/2024 8:06 PM KRISTINA (test code = KRISTINA) PERFORMED BY [facility]; [address] [place] [address]; MAIRA MARTIN MD,PHD, GILLIAN [facility] HospitalROMOSOMAL MICROARRAY, KATHLEEN ALEXANDERAVGLCVDCUSTWVDKP-[id number] 00:00:00* Test Item Value Reference Range Interpretation Comments CHROMOSOMAL MICROARRAY, SHEYLA ALEXANDER (test code = 31268-0) See Below Order ID: ? [id number] Specimen Type: ?Amniotic Fluid Clinical Indication: ? ? ?Abnormal ultrasound - FGR and pyelectasis RESULT:NORMAL FEMALE MICROARRAY RESULT INTERPRETATION:No reportable copy number variants or regions ofhomozygosity were detected. RECOMMENDATIONS:Correlation with a clinical evaluation of the andother laboratory results is recommended. Maternal cell contamination is a potential limitation ofthis test. For more information, healthcare providers may call [employer] [facility] at [employer] ([phone]). Please expect the results of any other concurrent test in aseparate report. NOMENCLATURE:arr(X,1-22)x2 ASSAY INFORMATION:Method: ? Oligonucleotide-SNP (Affymetrix)Resolution: ? 1.15 kbNumber of probes: ? 2.67 [facility] Porte Hospitalome assembly: ?GRCh37/hg 19 (2008) Copy number variants (CNVs) that are classified as likelypathogenic or pathogenic will be reported. CNVs of uncertainsignificance may be reported at the director's discretion.Regions of homozygosity (ALBERTO) will be reported if theoverall level is 5% or more of the genome (approximately 145Mb). In addition, generally, interstitial ALBERTO of 10 Mb orgreater and terminal ALBERTO of 5 Mb or greater on chromosomesknown to be imprinted, such as 6, 7, 11, 14, 15, and 20,will be reported. The following findings will NOT bereported: CNVs that are classified as benign or likelybenign; gains (duplications) that are less than or equal to2 Mb and losses (deletions) less than or equal to 1 Mb withno known clinical phenotypes or that do not encompass genesof clinical significance; and gains and losses associatedwith adult-onset disorders. CNVs limited to autosomalrecessive disease genes will not be reported unlesshomozygous copy number loss is present. CNVs involvingcancer predisposition genes with adult onset and cancersyndromes of early onset without established managementguidelines will not be reported. This assay does not detectsingle nucleotide variants (SNVs) or insertions/deletions(indels), balanced rearrangements (e.g., translocations,inversions), nor copy number gains/losses below the level ofresolution of the platform, and does not reliably detectmosaicism. When applicable, the dosage sensitivity portionof Clinical Genome Resource (ClinGen) (Ekaterina schroeder al. N Blane ed. 2014Aug 26;372(48):2627-63. PMID: 82532741) may be usedto establish haploinsufficiency and/or triplosensitivityassociations with specific genes or regions. Moreinformation can be found at http://clinicalgenome.org and/or by using a search engine with the CCID, HGNC, or ISCAif provided in the interpretation. This test was developed and its analytical performancecharacteristics have been determined by [place]. It has not been cleared or approvedby the FDA. This assay has been validated pursuant to theCLIA regulations and is used for clinical purposes. For chorionic villus samples, there is a possibility thatthe result may not represent the fetus due to confinedplacental mosaicism. Mildred Nguyen, PhD, [facility] ? ? [phone] [phone], [site [facility]] Electronic Signature: ? 12/31/2023 7:00 PM KRISTINA (test code = KRISTINA) PERFORMED BY [facility]/ [facility]; [address] [place] [address]; MAIRA MARTIN MD, PHD,GILLIAN [facility] CenterXOPLASMA GONDII, DNA, QL [id number] 00:00:00* Test Item Value Reference Range Interpretation Comments SOURCE-Q (test code = 89009-5) AMNIOTIC FLUID TOXOPLASMA GONDII,DNA,PCR -Q (test code = 26491-6) NOT DETECTED REFERENCE RANGE: ?NOT DETECTED This test was developed and its analytical performancecharacteristics have been determined by [employer].It has not been cleared or approved by FDA. This assay hasbeen validated pursuant to the CLIA regulations and isused for clinical purposes. KRISTINA (test code = KRISTINA) PERFORMED BY [facility]; [address] [place] [address]; MAIRA MARTIN MD,P HD,GILLIAN [facility] URINALYSIS W SPECIFIC [id number] 13:50:00* Test Item Value Reference Range Interpretation Comme nts POCT U SP GRAV (test code = 3255) . 1.005-1.025 POCT PH U (test code = 3254) 7 mg/dl 5-8 POCT U LEUK EST (test code = 3263) Trace Negative - Negative POCT U NIT (test code = 3262) Neg Negative - Negati ve POCT U PROT (test code = 3259) Trace Negative - Negat mana POCT U GLU (test code = 3256) Nml Negative - Negati ve POCT U KETONE (test code = 3258) None Negative - Neg ative POCT U UROBILI (test code = 3260) . 0.2-1 POCT U BILI (test code = 3261) . Negative - Negat mana POCT U BLD (test code = 3257) Trace Negative - Negati ve POCT U COLOR (test code = 3266) . POCT U APPEAR (test code = 3267) .. [facility] URINALYSIS W SPECIFIC [id number] 18:46:00* Test Item Value Reference Range Interpretation Comme nts POCT U SP GRAV (test code = 3255) . 1.005-1.025 POCT PH U (test code = 3254) . 5-8 POCT U LEUK EST (test code = 3263) . Negative - N egative POCT U NIT (test code = 3262) . Negative - Negati ve POCT U PROT (test code = 3259) trace Negative - Negat mana POCT U GLU (test code = 3256) neg Negative - Negati ve POCT U KETONE (test code = 3258) . Negative - Neg ative POCT U UROBILI (test code = 3260) . 0.2-1 POCT U BILI (test code = 3261) . Negative - Negat mana POCT U BLD (test code = 3257) . Negative - Negati ve POCT U COLOR (test code = 3266) POCT U APPEAR (test code = 3267) [facility] H[facility] Stain/KB [id number] 23:54:08* Test Item Value Reference Range Interpretation Comme nts RHIG REQUIRED? (test code = 1747) 1 Syringe Performed at [facility] Laboratory Services [address] Free: [phone] No. [id number] HGB STAIN (test code = 843) Negative Performed at [facility] Laboratory [address] Free: [phone] No. [id number] BLEED IN MLS (test code = 5045) See comment 0 mLsPerforme d at [facility] Laboratory [address] Free: [phone] No. [id number] [facility]neyRHO (D) IMMUNE [id number] 21:50:08* Test Item Value Reference Range Interpretation Comme nts RHIG CANDIDATE? (test code = 5188) Yes- see comment A Patient is a candidate for RhIg- Patient is Rh Negative and baby is Rh Unknown.Performed at [address] Free: [phone] No. [id number] Lab Interpretation (test code = 50055-2) Abnormal [facility]neyPOV[facility] URINALYSIS W SPECIFIC [id number] 20:00:00* Test Item Value Reference Range Interpretation Comme nts POCT U SP GRAV (test code = 3255) . 1.005-1.025 POCT PH U (test code = 3254) . 5-8 POCT U LEUK EST (test code = 3263) . Negative - N egative POCT U NIT (test code = 3262) . Negative - Negati ve POCT U PROT (test code = 2799) trace Negative - Negat mana POCT U GLU (test code = 3126) neg Negative - Negati ve POCT U KETONE (test code = 6388) . Negative - Neg ative POCT U UROBILI (test code = 3260) . 0.2-1 POCT U BILI (test code = 3261) . Negative - Negat mana POCT U BLD (test code = 3257) . Negative - Negati ve POCT U COLOR (test code = 3266) POCT U APPEAR (test code = 3267) [facility] URINALYSIS W SPECIFIC [id number] 20:58:00* Test Item Value Reference Range Interpretation Comme nts POCT U SP GRAV (test code = 3255) . 1.005-1.025 POCT PH U (test code = 3254) . 5-8 POCT U LEUK EST (test code = 3263) . Negative - N egative POCT U NIT (test code = 3262) . Negative - Negati ve POCT U PROT (test code = 3259) trace Negative - Negat mana POCT U GLU (test code = 3256) neg Negative - Negati ve POCT U KETONE (test code = 3258) . Negative - Neg ative POCT U UROBILI (test code = 3260) . 0.2-1 POCT U BILI (test code = 3261) . Negative - Negat mana POCT U BLD (test code = 3257) . Negative - Negati ve POCT U COLOR (test code = 3266) POCT U APPEAR (test code = 3267) [facility] URINALYSIS W SPECIFIC [id number] 19:46:00* Test Item Value Reference Range Interpretation Comme nts POCT U SP GRAV (test code = 3255) . 1.005-1.025 POCT PH U (test code = 3254) 5 mg/dl 5-8 POCT U LEUK EST (test code = 3263) neg Negative - Negative POCT U NIT (test code = 3262) neg Negative - Negati ve POCT U PROT (test code = 3259) trace Negative - Negat mana POCT U GLU (test code = 3256) neg Negative - Negati ve POCT U KETONE (test code = 3258) neg Negative - Neg ative POCT U UROBILI (test code = 3260) . 0.2-1 POCT U BILI (test code = 3261) . Negative - Negat mana POCT U BLD (test code = 3257) neg Negative - Negati ve POCT U COLOR (test code = 3266) POCT U APPEAR (test code = 3267) [facility]neyALPHA FETOPROTEIN-MATERNAL [id number] 16:32:24* Test Item Value Reference Range Interpretation Comme nts AFP-MS (test code = 6658755001) 48.6 ng/mL AFP-MS MoM (test code = 7674814971) 1.48 WEIGHT (test code = 2686096748) 118.5 lbs RACE (test code = 6147587872) GEST. AGE (test code = 0423229860) 15w3d INS. DEP (test code = 4970306320) No LMP (test code = 4224373038) [id number] US DATE (test code = 4077981603) PE DATE (test code = 2345418158) METHOD (test code = 5557254966) LMP MULT GEST (test code = 6964982483) No Down Syndrome History (test code = 0686043827) No NTD HX (test code = 9765373027) No INITAL OR REPEAT (test code = 3184779751) Initial Testing SMOKER (test code = 7680852126) No RH (test code = 8359823151) Negative OSB INTERP (test code = 8811593156) See Note The maternal ser um AFP result is NOT elevated for a of thisgestational age. The risk of an open neural tube defect is less thanthe screening cut-off. OSB RSK (test code = 3899046907) 1:1710 The risk of OSB is equal to 1:1710The OSB cut-off is 2.53 (1:104) OSB SCRN (test code = 2155718217) Negative [facility] UR[facility] W SPECIFIC [id number] 21:26:00* Test Item Value Reference Range Interpretation Comme nts POCT U SP GRAV (test code = 3255) . 1.005-1.025 POCT PH U (test code = 3254) 5 mg/dl 5-8 POCT U LEUK EST (test code = 3263) Neg Negative - Negative POCT U NIT (test code = 3262) Neg Negative - Negati ve POCT U PROT (test code = 3259) Trace Negative - Negat mana POCT U GLU (test code = 3256) Nml Negative - Negati ve POCT U KETONE (test code = 3258) None Negative - Neg ative POCT U UROBILI (test code = 3260) . 0.2-1 POCT U BILI (test code = 3261) . Negative - Negat mana POCT U BLD (test code = 3257) Trace Negative - Negati ve POCT U COLOR (test code = 3266) POCT U APPEAR (test code = 3267) [facility]ULTS 2023-09-24 22:07:02Ordered by an unspecified provider.[facility] - NON-[facility] TEST [id number] 22:06:02 Ordered by an unspecified provider.[facility] URINALYSIS W SPECIFIC [id number] 20:20:00* Test Item Value Reference Range Interpretation Comme nts POCT U SP GRAV (test code = 3255) . 1.005-1.025 POCT PH U (test code = 3254) . 5-8 POCT U LEUK EST (test code = 3263) . Negative - N egative POCT U NIT (test code = 3262) . Negative - Negati ve POCT U PROT (test code = 3259) trace Negative - Negat mana POCT U GLU (test code = 3256) neg Negative - Negati ve POCT U KETONE (test code = 3258) . Negative - Neg ative POCT U UROBILI (test code = 3260) . 0.2-1 POCT U BILI (test code = 3261) . Negative - Negat mana POCT U BLD (test code = 3257) . Negative - Negati ve POCT U COLOR (test code = 3266) POCT U APPEAR (test code = 3267) [facility] Urinalysis w/o Specific [id number] 18:16:00* Test Item Value Reference Range Interpretation Comme nts POCT PH U (test code = 3254) 6 mg/dl 5-8 POCT U LEUK EST (test code = 3263) neg Negative - Negative POCT U NIT (test code = 3262) neg Negative - Negati ve POCT U PROT (test code = 3259) trace Negative - Negat mana POCT U GLU (test code = 3256) neg Negative - Negati ve POCT U KETONE (test code = 3258) neg Negative - Neg ative POCT U BLD (test code = 3257) neg Negative - Negati ve [facility]neyPO[facility] [id number] 18:15:00* Test Item Value Reference Range Interpretation Comme nts POCT PREG (test code = 1605) Positive On board controls acceptable with C Line (test code = 3574) Yes POCT PREG LOT # (test code = 3575) POCT PREG TEST DATE ( test code = 3576) [facility] + LH [id number] 06:33:58* Test Item Value Reference Range Interpretation Comme nts FOLLICLE STIM HORMONE (test code = 2700) 1.9 IU/L SEE BELOW EXPEC MINERVA VALUES FOR FSH FOR FEMALES >17 YEARS FOLLICULAR 3.5-12.5 IU/L MID-CYCLE PEAK 4.7-21.5 IU/L LUTEAL PHASE 1.7-7.7 IU/L POSTMENOPAUSAL 25.8-134.8 IU/L LUTEINIZING HORMONE (test code = 2776) 2.4 IU/L SEE BELOW EXPEC MINERVA VALUES FOR LH FOR FEMALES >17 YEARS MALES FEMALES >=18 YEARS 1.8-8.6 IU/L FOLLICULAR 2.4-12.6 IU/L MID-CYCLE PEAK 14.0-95.6 IU/L LUTEAL PHASE 1.0-11.4 IU/L POSTMENOPAUSAL 7.7-58.5 IU/L [id number] 06:33:58* Test Item Value Reference Range Interpretation Comme nts PROLACTIN (test code = 2800) 9.9 NG/ML 5.0-37.0 NOTE: Methodolog y is Montse Bonifacio Electrochemiluminescence Immunoassay (ECLIA). Values obtained with different assays/manufacturers cannot be used interchangeably. Results should not be used as sole basis to establish the presence or absence of malignancy. [id number] 06:33:58* Test Item Value Reference Range Interpretation Comme [facility] ESTRADIOL (test code = 2505) 118.0 PG/ML SEE BELOW EXPECTED VALUES FOR ESTRADIOL FOR FEMALES >=18 YEARS FOLLICULAR . . . . . . . . . . . . . PG/ML 12.4-233.0 OVULATION. . . . . . . . . . . . . . PG/ML 41.0-398.0 LUTEAL PHASE . . . . . . . . . . . . PG/ML 22.3-341.0 POSTMENOPAUSAL SUPPLEMENTED/NON-SUPP . PG/ML <138.0/<20.0 NOTE: TO DETERMINE NORMAL VS. SUBNORMAL ESTRADIOL IN POSTMENOPAUSAL FEMALES, CONSIDER ULTRASENSITIVE ESTRADIOL ([facility] ORDER CODE 5678). METHODOLOGY IS [employer] BONIFACIO ELECTROCHEMILUMINESCENT IMMUNOASSAY WITH A LIMIT OF DETECTION OF 17 PG/ML. TSH, THIRD [id number] 06:33:58* Test Item Value Reference Range Interpretation Comme [facility] TSH, THIRD GENERATION (test code = 2821) 0.987 UIU/ML 0.400-4.100 UNLESS OTHERWISE INDICATED, ALL TESTING PERFORMED AT [facility] [address] [place] [address] CLINICAL PROJECT MANAGER: STEFANIE JOHNSON M.D. CLIA NUMBER [id number] [facility] [place]. [id number] 06:33:27* Test Item Value Reference Range Interpretation Comme [facility] TESTOSTERONE (test code = 2830) 26 NG/DL <=55 NOTE: TOTAL TESTOSTERONE ASSAY SENSITIVITY IS 12 NG/DL. TO DETERMINE NORMAL VS. SUBNORMAL TESTOSTERONE IN CHILDREN AND WOMEN, CONSIDER TESTING WITH ULTRASENSITIVE TESTOSTERONE. [id number] 00:00:00* Test Item Value Reference Range Interpretation Comme [facility] TESTOSTERONE (test code = 2830) 26 NG/DL Sam [facility] + [place] [id number] 00:00:00* Test Item Value Reference Range Interpretation Comme [facility] FOLLICLE STIM HORMONE (test code = 2700) 1.9 IU/L LUTEINIZING HORMONE (test co de = 2776) 2.4 IU/L Sam [id number] 00:00:00* Test Item Value Reference Range Interpretation Comme [facility] PROLACTIN (test code = 2800) 9.9 NG/ML Sam [id number] 00:00:00* Test Item Value Reference Range Interpretation Comme nts ESTRADIOL (test code = 2505) 118.0 PG/ML Sam Herrera, THIRD [id number] 00:00:00* Test Item Value Reference Range Interpretation Comme nts TSH, THIRD GENERATION (test code = 2821) 0.987 UIU/ML Sam [id number] 00:00:00* Test Item Value Reference Range Interpretation Comme nts TESTOSTERONE (test code = 2830) 26 NG/DL Sam ConnerFSAgus + LH [id number] 00:00:00* Test Item Value Reference Range Interpretation Comme nts FOLLICLE STIM HORMONE (test code = 2700) 1.9 IU/L LUTEINIZING HORMONE (test co de = 2776) 2.4 IU/L Sam [id number] 00:00:00* Test Item Value Reference Range Interpretation Comme nts PROLACTIN (test code = 2800) 9.9 NG/ML Sam [id number] 00:00:00* Test Item Value Reference Range Interpretation Comme nts ESTRADIOL (test code = 2505) 118.0 PG/ML Sam Herrera, THIRD [id number] 00:00:00* Test Item Value Reference Range Interpretation Comme nts TSH, THIRD GENERATION (test code = 2821) 0.987 UIU/ML Sam May AustinOVA AND PARASITES WITH TRICHROME [id number] 00:00:00* Test Item Value Reference Range Interpretation Comme nts O AND P CONCENTRATE #1 (test code = 503716) NEGATIVE O AND P TRICHROME #1 (test code = 122279) NEGATIVE O AND P CONCENTRATE #2 (test code = 991370) TEST NOT PERFORMED O AND P TRICHROME #2 (test code = 486340) TEST NOT PERFORMED O AND P CONCENTRATE #3 (test code = 200439) TEST NOT PERFORMED O AND P TRICHROME #3 (test code = 034097) TEST NOT PERFORMED Sam F AustinOVA AND PARASITES WITH TRICHROME [id number] 00:00:00* Test Item Value Reference Range Interpretation Comme nts O AND P CONCENTRATE #1 (test code = 726051) NEGATIVE O AND P TRICHROME #1 (test code = 806382) NEGATIVE O AND P CONCENTRATE #2 (test code = 448632) TEST NOT PERFORMED O AND P TRICHROME #2 (test code = 601322) TEST NOT PERFORMED O AND P CONCENTRATE #3 (test code = 913980) TEST NOT PERFORMED O AND P TRICHROME #3 (test code = 449035) TEST NOT PERFORMED Sam ConnerSTOOL CULTURE, NO [id number] 00:00:00* Test Item Value Reference Range Interpretation Comme nts STOOL CULTURE, NO SENS (test code = 90877) SPECIMEN NUMBER: [id number] Sam May AustinSTOOL CULTURE, NO [id number] 00:00:00* Test Item Value Reference Range Interpretation Comme nts STOOL CULTURE, NO SENS (test code = 67055) SPECIMEN NUMBER: [id number] Sam [id number] 00:00:00* Test Item Value Reference Range Interpretation Comme nts TSH, THIRD GENERATION (test code = 2821) 1.290 UIU/ML Sam May [id number] 00:00:00* Test Item Value Reference Range Interpretation Comme nts AMYLASE (test code = 2205) 66 U/L Sam Yadira [id number] 00:00:00* Test Item Value Reference Range Interpretation Comme nts LIPASE (test code = 2058) 40 U/L Sam May [id number] 00:00:00* Test Item Value Reference Range Interpretation Comme nts TSH, THIRD GENERATION (test code = 2821) 1.290 UIU/ML Sam May [id number] 00:00:00* Test Item Value Reference Range Interpretation Comme nts AMYLASE (test code = 2205) 66 U/L Sam Yadira [id number] 00:00:00* Test Item Value Reference Range Interpretation Comme nts LIPASE (test code = 2058) 40 U/L Sam May AustinHEPATITIS PROFILE (A,B,C)2022-08-01 00:00:00* Test Item Value Reference Range Interpretation Comme nts HEPATITIS A TOTAL AB (test c ode = 6179) REACTIVE HEPATITIS B SURF AG (test co de = 2739) NON-REACTIVE HEP B CORE TOTAL AB (test co de = 2729) NON-REACTIVE HEPATITIS B SURFACE AB (test code = 2737) NON-REACTIVE HEPATITIS C ANTIBODY (test c ode = 4675) NON-REACTIVE INTERPRETATION HEPATITIS A: (test code = 2552) (NOTE) INTERPRETATION HEPATITIS B: (test code = 51098) (NOTE) INTERPRETATION HEPATITIS C: (test code = 72431) (NOTE) Sam May AustinHIV AB/AG COMBO RFLX [id number] 00:00:00* Test Item Value Reference Range Interpretation Comme nts HIV 1/2 4TH GEN, RFLX CONF ( test code = 3514) NON-REACTIVE Sam May AustinSEDIMENTATION [id number] 00:00:00* Test Item Value Reference Range Interpretation Comme nts SEDIMENTATION RATE (test cod e = 1017) 2 MM/HOUR Sam May AustinC-REACTIVE [id number] 00:00:00* Test Item Value Reference Range Interpretation Comme nts C-REACTIVE PROTEIN (test cod e = 3513) <0.3 MG/DL Sam May AustinHEPATITIS A IgM [REFLEX]2022-08-01 00:00:00* Test Item Value Reference Range Interpretation Comme nts HEPATITIS A IgM (test code = 2728) NON-REACTIVE Sam May AustinHEPATITIS PROFILE (A,B,C)2022-08-01 00:00:00* Test Item Value Reference Range Interpretation Comme nts HEPATITIS A TOTAL AB (test c ode = 2725) REACTIVE HEPATITIS B SURF AG (test co de = 2739) NON-REACTIVE HEP B CORE TOTAL AB (test co de = 2729) NON-REACTIVE HEPATITIS B SURFACE AB (test code = 2737) NON-REACTIVE HEPATITIS C ANTIBODY (test c ode = 4675) NON-REACTIVE INTERPRETATION HEPATITIS A: (test code = 2552) (NOTE) INTERPRETATION HEPATITIS B: (test code = 05574) (NOTE) INTERPRETATION HEPATITIS C: (test code = 55789) (NOTE) Sam May AustinHIV AB/AG COMBO RFLX [id number] 00:00:00* Test Item Value Reference Range Interpretation Comme nts HIV 1/2 4TH GEN, RFLX CONF ( test code = 3514) NON-REACTIVE Sam May AustinSEDIMENTATION [id number] 00:00:00* Test Item Value Reference Range Interpretation Comme nts SEDIMENTATION RATE (test cod e = 1017) 2 MM/HOUR Sma ConnerC-REACTIVE [id number] 00:00:00* Test Item Value Reference Range Interpretation Comme jitendra C-REACTIVE PROTEIN (test cod e = 3513) <0.3 MG/DL Sam ConnerHEPATITIS A IgM [REFLEX]2022-08-01 00:00:00* Test Item Value Reference Range Interpretation Comme nts HEPATITIS A IgM (test code = 2728) NON-REACTIVE Sam ConnerH. PYLORI (BREATH)2022-06-26 14:53:38* Test Item Value Reference Range Interpretation Comme nts H. PYLORI (BREATH) (test code = 91165) NEGATIVE NEGATIVE [facility] has important pathology staff changes effective 05/23/2022. New pathology staff will provide uninterrupted, excellent patient care and clinical consultation. See URL: [email or web address] team. UNLESS OTHERWISE INDICATED, ALL TESTING PERFORMED AT [facility] [address] [place] [address] CLINICAL PROJECT MANAGER: STEFANIE JOHNSON M.D. CLIA NUMBER [id number] [facility] [place]. [id number] COMPREHENSIVE METABOLIC [id number] 04:04:43* Test Item Value Reference Range Interpretation Comme nts GLUCOSE (test code = 2217) 93 MG/DL 70-99 BUN (test code = 2208) 9 MG/DL 6-20 CREATININE (test code = 2214) 0.74 MG/DL 0.60-1.30 eGFR (2020 CKD-EPI) (test code = 27788) 115 ML/MIN/1.73 >60 CALC BUN/CREAT (test code = 2235) 12 RATIO 6-28 SODIUM (test code = 2231) 142 MEQ/L 133-146 POTASSIUM (test code = 2228) 4.1 MEQ/L 3.5-5.4 CHLORIDE (test code = 2215) 105 MEQ/L 95-107 CARBON DIOXIDE (test code = 2206) 21 MEQ/L 19-31 CALCIUM (test code = 2209) 10.0 MG/DL 8.5-10.5 PROTEIN, TOTAL (test code = 2229) 7.2 G/DL 6.1-8.3 ALBUMIN (test code = 220) 4.9 G/DL 3.5-5.2 CALC GLOBULIN (test code = 2240) 2.3 G/DL 1.9-3.7 CALC A/G RATIO (test code = 223) 2.1 RATIO 1.0-2.6 BILIRUBIN, TOTAL (test code = 7) 0.6 MG/DL See_Comment [Automated [employer] ssage] The system which generated this result transmitted reference range: <=1.2. The reference range was not used to interpret this result as normal/abnormal. ALKALINE PHOSPHATASE (test code = 2204) 68 U/L 40-112 AST (test code = 2218) 19 U/L 9-40 ALT (test code = 2219) 18 U/L 5-40 CBC W/AUTO DIFF WITH [id number] 03:37:46* Test Item Value Reference Range Interpretation Comme nts WBC (test code = 1001) 8.4 K/UL 3.5-11.0 RBC (test code = 1002) 5.06 M/UL 3.80-5.40 HEMOGLOBIN (test code = 1003) 14.2 G/DL 11.5-15.5 HEMATOCRIT (test code = 1004) 42.7 % 34.0-45.0 MCV (test code = 1005) 84.4 fL 80.0-99.0 MCH (test code = 1006) 28.1 PG 25.0-33.0 MCHC (test code = 1007) 33.3 G/DL 31.0-36.0 RDW (test code = 1038) 11.9 % 11.5-15.0 NEUTROPHILS (test code = 1008) 62.4 % LYMPHOCYTES (test code = 1010) 29.7 % MONOCYTES (test code = 1011) 6.0 % EOSINOPHILS (test code = 1012) 0.7 % BASOPHILS (test code = 1013) 0.8 % IMMATURE GRANULOCYTES (test code = 1036) 0.4 % NUCLEATED RBCS (test code = 1065) 0.0 /100 WBC'S See_Comment [Automated [employer] ge] The system which generated this result transmitted reference range: 0.0. The reference range was not used to interpret this result as normal/abnormal. PLATELET COUNT (test code = 1015) 207 K/UL 130-400 ABSOLUTE NEUTROPHILS (test code = 1066) 5.24 K/UL 1.50-7.50 ABSOLUTE LYMPHOCYTES (test code = 1067) 2.49 K/UL 1.00-4.00 ABSOLUTE MONOCYTES (test code = 1068) 0.50 K/UL 0.20-1.00 ABSOLUTE EOSINOPHILS (test code = 1040) 0.06 K/UL 0.00-0.50 ABSOLUTE BASOPHILS (test code = 1069) 0.07 K/UL 0.00-0.20 ABS IMMATURE GRANULOCYTES (test code = 1020) 0.03 K/UL 0.00-0.10 ABS NUCLEATED RBCS (test code = 44959) 0.00 K/UL 0.00-0.11 CBC W/AUTO [id number] 00:00:00* Test Item Value Reference Range Interpretation Comme nts WBC (test code = 1001) 8.4 K/UL RBC (test code = 1002) 5.06 M/UL HEMOGLOBIN (test code = 1003) 14.2 G/DL HEMATOCRIT (test code = 1004) 42.7 % MCV (test code = 1005) 84.4 fL MCH (test code = 1006) 28.1 PG MCHC (test code = 1007) 33.3 G/DL RDW (test code = 1038) 11.9 % NEUTROPHILS (test code = 1008) 62.4 % LYMPHOCYTES (test code = 1010) 29.7 % MONOCYTES (test code = 1011) 6.0 % EOSINOPHILS (test code = 1012) 0.7 % BASOPHILS (test code = 1013) 0.8 % IMMATURE GRANULOCYTES (test code = 1036) 0.4 % NUCLEATED RBCS (test code = 1065) 0.0 /100WBC'S PLATELET COUNT (test code = 1015) 207 K/UL ABSOLUTE NEUTROPHILS (test c ode = 1066) 5.24 K/UL ABSOLUTE LYMPHOCYTES (test c ode = 1067) 2.49 K/UL ABSOLUTE MONOCYTES (test cod e = 1068) 0.50 K/UL ABSOLUTE EOSINOPHILS (test c ode = 1040) 0.06 K/UL ABSOLUTE BASOPHILS (test cod e = 1069) 0.07 K/UL ABS IMMATURE GRANULOCYTES (t est code = 1020) 0.03 K/UL ABS NUCLEATED RBCS (test cod e = 12506) 0.00 K/UL Sam ConnerCOMPREHENSIVE METABOLIC [id number] 00:00:00* Test Item Value Reference Range Interpretation Comme nts GLUCOSE (test code = 2217) 93 MG/DL BUN (test code = 2208) 9 MG/DL CREATININE (test code = 2214) 0.74 MG/DL eGFR (2020 CKD-EPI) (test code = 15191) 115 ML/MIN/1.73 CALC BUN/CREAT (test code = 2235) 12 RATIO SODIUM (test code = 2231) 142 MEQ/L POTASSIUM (test code = 2228) 4.1 MEQ/L CHLORIDE (test code = 2215) 105 MEQ/L CARBON DIOXIDE (test code = 2206) 21 MEQ/L CALCIUM (test code = 2209) 10.0 MG/DL PROTEIN, TOTAL (test code = 2229) 7.2 G/DL ALBUMIN (test code = 2201) 4.9 G/DL CALC GLOBULIN (test code = 2240) 2.3 G/DL CALC A/G RATIO (test code = 2234) 2.1 RATIO BILIRUBIN, TOTAL (test code = 2207) 0.6 MG/DL ALKALINE PHOSPHATASE (test code = 2204) 68 U/L AST (test code = 2218) 19 U/L ALT (test code = 2219) 18 U/L Sam ConnerH. PYLORI (BREATH)2022-06-26 00:00:00* Test Item Value Reference Range Interpretation Comme nts H. PYLORI (BREATH) (test cod e = 90420) NEGATIVE Sammert ConnerCBC W/AUTO [id number] 00:00:00* Test Item Value Reference Range Interpretation Comme nts WBC (test code = 1001) 8.4 K/UL RBC (test code = 1002) 5.06 M/UL HEMOGLOBIN (test code = 1003) 14.2 G/DL HEMATOCRIT (test code = 1004) 42.7 % MCV (test code = 1005) 84.4 fL MCH (test code = 1006) 28.1 PG MCHC (test code = 1007) 33.3 G/DL RDW (test code = 1038) 11.9 % NEUTROPHILS (test code = 1008) 62.4 % LYMPHOCYTES (test code = 1010) 29.7 % MONOCYTES (test code = 1011) 6.0 % EOSINOPHILS (test code = 1012) 0.7 % BASOPHILS (test code = 1013) 0.8 % IMMATURE GRANULOCYTES (test code = 1036) 0.4 % NUCLEATED RBCS (test code = 1065) 0.0 /100WBC'S PLATELET COUNT (test code = 1015) 207 K/UL ABSOLUTE NEUTROPHILS (test c ode = 1066) 5.24 K/UL ABSOLUTE LYMPHOCYTES (test c ode = 1067) 2.49 K/UL ABSOLUTE MONOCYTES (test cod e = 1068) 0.50 K/UL ABSOLUTE EOSINOPHILS (test c ode = 1040) 0.06 K/UL ABSOLUTE BASOPHILS (test cod e = 1069) 0.07 K/UL ABS IMMATURE GRANULOCYTES (t est code = 1020) 0.03 K/UL ABS NUCLEATED RBCS (test cod e = 34047) 0.00 K/UL Sam ConnerCOMPREHENSIVE METABOLIC [id number] 00:00:00* Test Item Value Reference Range Interpretation Comme nts GLUCOSE (test code = 2217) 93 MG/DL BUN (test code = 2208) 9 MG/DL CREATININE (test code = 2214) 0.74 MG/DL eGFR (2020 CKD-EPI) (test code = 34902) 115 ML/MIN/1.73 CALC BUN/CREAT (test code = 2235) 12 RATIO SODIUM (test code = 2231) 142 MEQ/L POTASSIUM (test code = 2228) 4.1 MEQ/L CHLORIDE (test code = 2215) 105 MEQ/L CARBON DIOXIDE (test code = 2206) 21 MEQ/L CALCIUM (test code = 2209) 10.0 MG/DL PROTEIN, TOTAL (test code = 2229) 7.2 G/DL ALBUMIN (test code = 2201) 4.9 G/DL CALC GLOBULIN (test code = 2240) 2.3 G/DL CALC A/G RATIO (test code = 2234) 2.1 RATIO BILIRUBIN, TOTAL (test code = 2207) 0.6 MG/DL ALKALINE PHOSPHATASE (test code = 2204) 68 U/L AST (test code = 2218) 19 U/L ALT (test code = 2219) 18 U/L Sam ConnerH. PYLORI (BREATH)2022-06-26 00:00:00* Test Item Value Reference Range Interpretation Comme nts H. PYLORI (BREATH) (test cod e = 62744) NEGATIVE Sam May AustinPOCT [id number] 17:07:00* Test Item Value Reference Range Interpretation Comme nts POCT PREG (test code = 1605) Negative On board controls acceptable with C Line (test code = 3574) Yes POCT PREG LOT # (test code = 3575) POCT PREG TEST DATE ( test code = 3576) [id number] 17:07:00* Test Item Value Reference Range Interpretation Comme nts POCT PREG (test code = 1605) Negative On board controls acceptable with C Line (test code = 3574) Yes POCT PREG LOT # (test code = 3575) POCT PREG TEST DATE ( test code = 3576) [facility] [id number] 20:27:00* Test Item Value Reference Range Interpretation Comme nts POCT PREG (test code = 1605) Negative On board controls acceptable with C Line (test code = 3574) Yes POCT PREG LOT # (test code = 3575) POCT PREG TEST DATE ( test code = 3576) [facility] [id number] 20:27:00* Test Item Value Reference Range Interpretation Comme nts POCT PREG (test code = 1605) Negative On board controls acceptable with C Line (test code = 3574) Yes POCT PREG LOT # (test code = 3575) POCT PREG TEST DATE ( test code = 3576) [facility] Consult Notes Date/Time Note Provider Source 2024-01-10 14:14:49 Associated Order(s): CONSULT PEDI NEONATOLOGY NEONATOLOGY CONSULT NOTE Date of Service: 01/10/2024 Present: Mother Pie 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 Indication for Consult: PI Maternal Information: Felicity Biggs is a 27 year old Gestational Age: 28w4d EFW: 766g Maternal Serologies: negative pend syph Maternal GBS: Unknown Complications: sFGR AEDF Duplicate collecting system (left), mild pyelectasis (UTD A1) Placental thickening Oligo (at 24w), resolved Amnio 46XX Steroids Received: yes - benefit on 10/2 Discussed with the mother the risks associated with delivery at 28 weeks: IVH/ PVL Vision and hearing deficits Respiratory distress and the use of surfactant, oxygen, CMV/HFOV, NCPAP BPD Apnea of prematurity Need for IV nutrition/tube feedings/NEC PDA Anemia of prematurity with possible need for blood transfusion Sepsis and IV antibiotics Hyperbilirubinemia Provided a copy if the "risks of prematurity" handout. Discussed that infants born extremely premature can be expected to be in the NICU until their expected due date, however this is affected by the baby's clinical course and is only a rough estimate. After reviewing risks and outcomes, mother requests: full intervention after delivery including intubation, mechanical ventilation, CPR, medications, prolonged stay in the NICU All questions were answered and parent(s) state understanding. Thank you for the consult. We will follow until delivery. Tadeo Hammond DO - Medicine Fellow PGY-6 Associated attestation - Nadeen Ellis MD - 01/10/2024 5:51 PM CDT I personally participated in the evaluation of the patient with the fellow and agree with the management plan. We will follow until delivery. Nadeen Lopez MD PED-PEDIATRICS STAFF [facility] 2023-12-23 16:36:02 Associated Order(s): CONSULT PEDI NEONATOLOGY NEONATOLOGY CONSULT NOTE Date of Service: 12/23/23 Present: Mother and Father Pie Bottomer: yes - Jhony Laird Indication for Consult: sFGR, here for monitoring and steroids Maternal Information: Felicity Biggs is a 27 year old Gestational Age: 26 weeks EFW: 495g Maternal Serologies: negative Maternal GBS: Unknown Complications: sFGR Steroids Received: Will be started today; benefit should be 12/24 @ 1415 Ultrasound at 20w0d which noted estimated weight at 6%ile. Subsequent detailed and follow up ultrasounds on 12/10 and 12/16 reported severe growth restriction <3%ile, and bilateral pyelectasis (6.8mm R, 5.6mm L). Discussed with the mother the risks associated with delivery at 26 weeks: IVH/ PVL Vision and hearing deficits Respiratory distress and the use of surfactant, oxygen, CMV/HFOV, NCPAP BPD Apnea of prematurity Need for IV nutrition/tube feedings/NEC PDA Anemia of prematurity with possible need for blood transfusion Sepsis and IV antibiotics Hyperbilirubinemia Provided a copy if the "risks of prematurity" handout. Discussed that infants born extremely premature can be expected to be in the NICU until their expected due date, however this is affected by the baby's clinical course and is only a rough estimate. After reviewing risks and outcomes, mother requests: full intervention after delivery including intubation, mechanical ventilation, CPR, medications, prolonged stay in the NICU All questions were answered and parent(s) state understanding. Thank you for the consult. We will follow until delivery. Deana Parra DO, MS [facility] Neonatology Fellow PGY-5 12/23/2023 4:36 PM Associated attestation - Jack Aguilera MD - 12/23/2023 7:08 PM CDT I agree with Dr Parra's note and discussed patient with her. Will follow for delivery. Kt Aguilera MD - Medicine PED-PEDIATRICS STAFF [facility] - Health History and Physical Notes Date/Time Note Provider Source 2024-01-21 16:09:59 TRIAGE/L&D HISTORY & PHYSICAL IDENTIFYING DATA Felicity Biggs is 27 year old, /White, 30w1d, female with BOSSMAN 03/30/2024, by Last Menstrual Period. : 01/27/1997 Primary Care Physician: PATIENT DOES NOT HAVE A PCP CHIEF COMPLAINT sFGR, AEDF HISTORY OF PRESENT ILLNESS Felicity Biggs is a 27 year old at 30w1d who presents for sFGR in the setting of AEDF. Patient denies vaginal bleeding, denies leakage of fluid, denies contractions. Patient denies headache, denies nausea/vomiting, denies RUQ pain, denies visual abnormalities. Endorses normal movement. PAST OBSTETRIC HISTORY OB History Para Term AB Living 1 0 0 0 0 0 SAB IAB Ectopic Multiple Live Births 0 0 0 0 0 # Outcome Date GA Lbr Rigoberto/2nd Weight Sex Type Anes PTL Lv 1 Current PAST MEDICAL HISTORY Problem list: Patient Active Problem List Diagnosis Date Noted 30 weeks gestation of 01/21/2024 growth restriction antepartum 01/09/2024 IUGR (intrauterine growth restriction) affecting care of mother 12/12/2023 Pyelectasis 12/12/2023 Susceptible to varicella (non-immune), currently 09/16/2023 Rh negative state in antepartum period 08/15/2023 Rubella non-immune status, antepartum 08/15/2023 Abnormal maternal glucose tolerance, antepartum 08/15/2023 Supervision of high-risk 08/14/2023 Operations: No past surgical history on file. No past medical history on file. CURRENT HEALTH STATUS Medications: No current facility-administered medications for this encounter. Allergies and drug reactions: Patient has no known allergies. HOME MEDICATIONS Medications Prior to Admission Medication Sig Dispense Refill Last Dose PNV no.[id number] ( GUMMIES) 400 mcg-35 mg- 25 mg-5 mg Chew Take 1 tablet by mouth daily. 60 tablet 6 SOCIAL HISTORY Tobacco History: Social History Tobacco Use Smoking Status Never Smokeless Tobacco Never Drug History: Social History Substance and Sexual Activity Drug Use Not Currently Alcohol History: Social History Substance and Sexual Activity Alcohol Use Not Currently FAMILY HISTORY Family History Problem Relation Age of Onset Hypertension Mother No Significant Medical Problems Father Hypertension Maternal Grandmother REVIEW OF SYSTEMS General: negative Skin: negative HEENT: negative Neck: negative HEME: negative Resp: negative Cardio: negative GI: negative : negative Endo: negative Neuro: negative Back: negative MAU: negative Psych: negative VITAL SIGNS BP: (127)/(88) Temp: [36.4 ?C (97.5 ?F)] Temp source: Axillary (01/20 1611) Pulse: [71] Resp: [16] SpO2: [100 %] Height: [154.9 cm (5' 1")] Weight: [61.1 kg (134 lb 11.2 oz)] BMI (calculated): [25.45] PHYSICAL EXAMINATIONS General: patient alert and in no acute distress HEENT: symmetric, negative for masses Lungs: unlabored breathing Breast: deferred Cardiology: peripheral pulses intact and regular Abdomen: soft, non-tender, non-distended, no liver, spleen or abnormal masses palpated and Gravid Extremities: no clubbing, cyanosis, or edema Neuro: patient moving all extremities, no facial droop : deferred REVIEW OF LABORATORY, PATHOLOGY, AND RADIOLOGY DATA Lab results: Type & Screen Lab Results Component Value Date/Time IABORH O NEGATIVE 01/16/2024 12:00 AM IAT Positive 01/16/2024 12:00 AM Serologies Lab Results Component Value Date/Time VZVIGG Negative 09/12/2023 04:09 PM RUBG Negative 08/14/2023 02:45 AM SYPIGG Non-reactive 01/09/2024 12:57 PM HBSAG Negative 01/09/2024 12:57 PM HBSAG 0.11 01/09/2024 12:57 PM Chlamydia Lab Results Component Value Date/Time VCAA Negative 08/14/2023 02:45 AM Group B Strep Lab Results Component Value Date/Time CGB Negative 01/13/2024 03:29 PM GTT Lab Results Component Value Date/Time GLUF 65 (L) 01/02/2024 08:25 AM USUU5OH 148 01/02/2024 09:30 AM GLU3H 107 01/02/2024 11:30 AM CBC Lab Results Component Value Date/Time HGB 11.5 (L) 01/12/2024 08:20 AM HCT 34.9 (L) 01/12/2024 08:20 AM PLT 211 01/12/2024 08:20 AM Active Hospital Problems Diagnosis Date Noted 30 weeks gestation of 01/21/2024 growth restriction antepartum 01/09/2024 Pyelectasis 12/12/2023 Noted on usg FU is requested for a detailed exam and echo in [place] and additional FU for IUGR will need to be scheduled. Resolved Hospital Problems No resolved problems to display. Present on Admission: Pyelectasis growth restriction antepartum 30 weeks gestation of Placenta Accreta Screening Prior ? : No Prior Uterine Surgery?: No Placenta low lying/previa in current ? : No Screening outcome: A positive screening outcome indicates a history of prior delivery or prior uterine surgery, AND the presence of either a placenta low lying/previa or ultrasound suspicion of PASD in the current . Negative screening. ASSESSMENT AND PLAN Felicity Biggs is a 27 year old at 30w1d by d/u(11) who presents for sFGR w/ AEDF. sFGR with AEDF Oligohydramnios, resolved - Dx sFGR at 24 wk US - Oligohydramnios noted 12/25; resolved on US 01/08 - MFM dopplers 01/05: normal; EFW and AC <3%tile - echo wnl 12/17/23 - Amniocentesis (12/22), Parvo, CMV, Toxo neg; nml microarray; NIPT low risk - low risk NIPT, negative carrier screen - s/p NICU consult 12/22, desires all interventions - s/p BMZ series 12/25 - MFM dopplers 01/08: AEDF; admitted to on cEFM 01/08-01/17 - MFM dopplers 01/16: normal, S/D ratio 84%tile, no AEDF, ASTER 14.3 cm - Per clinic note, MFM US today: AEDF; report not yet available - Pt reports DFM since last night (has still felt movement throughout the day) - Denies LOF, VB, consistent ctx - BPP in triage 10/30; DVP 2x3 cm - Dispo: Will sign out to night team for plan of care. 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) and thickened placenta (7.4cm) - Pyelectasis: Left 5.6, Right 6.8 (12/16) - echo WNL (12/16) Rh negative - s/p Rhogam 12/22 Abnormal GTT - elevated 1hr 150 - 3hr wnl (65, 148, 120, 107) Antepartum course reviewed - 1 h 150 (3h wnl), sero negative, Rnot immune, VZVnot immune, HPV not immune, O negative/IAT negative, GBS unknown, Pap NILM 2022 - H/H, plt: 13 / 39.1, 191 on 08/14/23 - PP control plan: deferred - [facility] RM[facility]P Fetus - Presentation on admission: breech - Lt lateral placenta - EFW: 766 g, <3%tile MFM US 01/05 - DVP 2 x 3 cm - FHT AGA - Abnormal anatomy scan; double collecting system- left kidney D/w Dr. Amirah Dubon MD Associated attestation - Mony De Leon MD - 01/21/2024 7:13 PM CDT I personally examined the patient on 01/21/[address] Dubon's resident note with the following addition(s): Felicity reports headache for last 3 days (3/10 pain), with associated visual changes, reporting some itchiness of left eye, feels as though she has needles in her right eye, and reports off and on "colors" in right eye only. Currently reports double vision, but does not wear glasses, and this is not her baseline. Vitals: 01/21/24 1700 01/21/24 1733 01/21/24 1800 01/21/24 1830 BP: 132/86 126/87 (!) 132/91 Pulse: 68 67 67 62 Resp: Temp: TempSrc: SpO2: 100% 99% 100% 100% Weight: Height: Sending preeclampsia labs now, start magnesium sulfate, as Felicity has had some mild range blood pressure in triage. At risk for preeclampsia or preeclampsia with severe features. I actively participated in the decision-making process. Please see the resident's note for additional details. Mony De Leon MD 01/21/2024 7:13 PM [facility] Faculty OBSTETRICS & GYNECOLOGY [facility] 2024-01-09 11:38:07 TRIAGE/L&D HISTORY & PHYSICAL IDENTIFYING DATA Felicity Biggs is 27 year old, /White, 28w3d, female with BOSSMAN 03/30/2024, by Last Menstrual Period. : 01/27/1997 Primary Care Physician: PATIENT DOES NOT HAVE A PCP CHIEF COMPLAINT AEDF HISTORY OF PRESENT ILLNESS Felicity Biggs is a 27 year old at 28w3d who presents from US for AEDF in the setting of previously diagnosed sFGR. Patient denies vaginal bleeding, denies leakage of fluid, denies contractions. Patient denies headache, denies nausea/vomiting, denies RUQ pain, denies visual abnormalities. Endorses normal movement. PAST OBSTETRIC HISTORY OB History Para Term AB Living 1 0 0 0 0 0 SAB IAB Ectopic Multiple Live Births 0 0 0 0 0 # Outcome Date GA Lbr Rigoberto/2nd Weight Sex Type Anes PTL Lv 1 Current PAST MEDICAL HISTORY Problem list: Patient Active Problem List Diagnosis Date Noted growth restriction antepartum 01/09/2024 IUGR (intrauterine growth restriction) affecting care of mother 12/12/2023 Pyelectasis 12/12/2023 Susceptible to varicella (non-immune), currently 09/16/2023 Rh negative state in antepartum period 08/15/2023 Rubella non-immune status, antepartum 08/15/2023 Abnormal maternal glucose tolerance, antepartum 08/15/2023 Supervision of high-risk 08/14/2023 Operations: No past surgical history on file. No past medical history on file. CURRENT HEALTH STATUS Medications: Current Facility-Administered Medications Medication Dose Route Frequency Last Rate Last Admin alum-mag hydroxide-simeth (MAG-AL PLUS) 200-200-20 mg/5 mL suspension 30 mL 30 mL Oral Q6HPRN docusate (COLACE) capsule 200 mg 200 mg Oral QHSPRN magnesium hydroxide (MILK OF MAGNESIA) 400 mg/5 mL suspension 30 mL 30 mL Oral QDAILYPRN [START ON 01/10/2024] [id number] fum-folic () tablet 1 tablet 1 tablet Oral DAILY Allergies and drug reactions: Patient has no known allergies. HOME MEDICATIONS Medications Prior to Admission Medication Sig Dispense Refill Last Dose PNV no.[id number] ( GUMMIES) 400 mcg-35 mg- 25 mg-5 mg Chew Take 1 tablet by mouth daily. 60 tablet 6 SOCIAL HISTORY Tobacco History: Social History Tobacco Use Smoking Status Never Smokeless Tobacco Never Drug History: Social History Substance and Sexual Activity Drug Use Not Currently Alcohol History: Social History Substance and Sexual Activity Alcohol Use Not Currently FAMILY HISTORY Family History Problem Relation Age of Onset Hypertension Mother No Significant Medical Problems Father Hypertension Maternal Grandmother REVIEW OF SYSTEMS General: negative Skin: negative HEENT: negative Neck: negative HEME: negative Resp: negative Cardio: negative GI: negative : negative Endo: negative Neuro: negative Back: negative MAU: negative Psych: negative VITAL SIGNS BP: (120-124)/(80-85) Temp: [36.7 ?C (98.1 ?F)] Temp source: Axillary (01/08 1148) Pulse: [71-74] Resp: [18-20] SpO2: [99 %-100 %] Height: [154.9 cm (5' 1")] Weight: [60.3 kg (133 lb)] BMI (calculated): [25.13] PHYSICAL EXAMINATIONS General: patient alert and in no acute distress HEENT: symmetric, negative for masses Lungs: unlabored breathing Breast: deferred Cardiology: peripheral pulses intact and regular Abdomen: soft, non-tender, non-distended, no liver, spleen or abnormal masses palpated and Gravid Extremities: no clubbing, cyanosis, or edema Neuro: patient moving all extremities, no facial droop : deferred REVIEW OF LABORATORY, PATHOLOGY, AND RADIOLOGY DATA Lab results: Type & Screen Lab Results Component Value Date/Time IABORH O NEGATIVE 12/23/2023 03:04 PM IAT Negative 12/23/2023 03:04 PM Serologies Lab Results Component Value Date/Time VZVIGG Negative 09/12/2023 04:09 PM RUBG Negative 08/14/2023 02:45 AM SYPIGG Non-reactive 12/23/2023 03:04 PM HBSAG Negative 12/23/2023 03:04 PM HBSAG 0.11 12/23/2023 03:04 PM Chlamydia Lab Results Component Value Date/Time VCAA Negative 08/14/2023 02:45 AM Group B Strep No results found for: "CGB" GTT Lab Results Component Value Date/Time GLUF 65 (L) 01/02/2024 08:25 AM [id number] 148 01/02/2024 09:30 AM GLU3H 107 01/02/2024 11:30 AM CBC Lab Results Component Value Date/Time HGB 11.7 01/02/2024 09:30 AM HCT 36.1 01/02/2024 09:30 AM PLT 216 01/02/2024 09:30 AM Active Hospital Problems Diagnosis Date Noted growth restriction antepartum 01/09/2024 Abnormal maternal glucose tolerance, antepartum 08/15/2023 Passed 3hr gtt Resolved Hospital Problems No resolved problems to display. Present on Admission: growth restriction antepartum Abnormal maternal glucose tolerance, antepartum Placenta Accreta Screening Prior ? : No Prior Uterine Surgery?: No Placenta low lying/previa in current ? : No Screening outcome: A positive screening outcome indicates a history of prior delivery or prior uterine surgery, AND the presence of either a placenta low lying/previa or ultrasound suspicion of PASD in the current . Negative screening. ASSESSMENT AND PLAN Felicity Biggs is a 27 year old at 28w3d by d/u(11) who presents from [facility] US for 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 sFGR Oligohydramnios, resolved - Dx at 24 wk US - Oligohydramnios noted 12/25; resolved on US today - EFW and AC <3%tile; normal dopplers [facility] US 01/06/24 - echo wnl 12/17/23 - Amniocentesis (12/22), Parvo, CMV, Toxo neg; nml microarray; NIPT low risk - low risk NIPT, negative carrier screen - s/p NICU consult 12/22, desires all interventions - s/p BMZ series 12/23 - AEDF noted on [facility] US today, sent to triage for prolonged monitoring and plan of care - Denies consistent ctx, lof, vb, dfm Dispo: Admit to AP for 24hr obs with continuous monitoring in the setting of sFGR (by EFW and AC) and AEDF. 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 Macario who d/w Dr. Micheal Dubon MD Associated attestation - Darlene Grant MD - 01/09/2024 5:50 PM CDT Present and participated in the decision making and observation assessment and plan. Agree with the resident note. 28 weeks, IUGR, some improvement in umbilical cord doppler was noted and now there is a return to absent EDF. EFM reassuring, will obs overnight given decline in cord flow. [facility] 2023-12-23 13:04:58 TRIAGE/L&D HISTORY & PHYSICAL IDENTIFYING DATA Felicity Biggs is 27 year old, /White, 26w0d, female with BOSSMAN 03/30/2024, by Last Menstrual Period. : 01/27/1997 Primary Care Physician: PATIENT DOES NOT HAVE A PCP CHIEF COMPLAINT Sent from [facility] US for BMZ HISTORY OF PRESENT ILLNESS Felicity Biggs is a 27 year old at 26w0d who presents for BMZ series and Rhogam due to amniocentesis. Patient denies vaginal bleeding, denies leakage of fluid, denies contractions. Patient denies headache, denies nausea/vomiting, denies RUQ pain, denies visual abnormalities. Endorses normal movement. PAST OBSTETRIC HISTORY OB History Para Term AB Living 1 0 0 0 0 0 SAB IAB Ectopic Multiple Live Births 0 0 0 0 0 # Outcome Date GA Lbr Rigoberto/2nd Weight Sex Delivery Anes PTL Lv 1 Current PAST MEDICAL HISTORY Problem list: Patient Active Problem List Diagnosis Date Noted IUGR (intrauterine growth restriction) affecting care of mother 12/12/2023 Pyelectasis 12/12/2023 Susceptible to varicella (non-immune), currently 09/16/2023 Rh negative state in antepartum period 08/15/2023 Rubella non-immune status, antepartum 08/15/2023 Abnormal maternal glucose tolerance, antepartum 08/15/2023 Supervision of high-risk 08/14/2023 Operations: No past surgical history on file. No past medical history on file. CURRENT HEALTH STATUS Medications: Current Facility-Administered Medications Medication Dose Route Frequency Last Rate Last Admin acetaminophen (TYLENOL) tablet 650 mg 650 mg Oral Q6HPRN 650 mg at 12/23/23 1601 alum-mag hydroxide-simeth (MAG-AL PLUS) 200-200-20 mg/5 mL suspension 30 mL 30 mL Oral Q6HPRN betamethasone acet,sod phos (CELESTONE SOLUSPAN) 6 mg/mL injection 12 mg 12 mg Intramuscular Q24H 12 mg at 12/23/23 1714 diphenhydrAMINE (BENADRYL) tablet 25 mg 25 mg Oral Q4HPRN docusate (COLACE) capsule 200 mg 200 mg Oral QHSPRN magnesium hydroxide (MILK OF MAGNESIA) 400 mg/5 mL suspension 30 mL 30 mL Oral QDAILYPRN [START ON 12/24/2023] [id number] fum-folic () tablet 1 tablet 1 tablet Oral DAILY rho(D) immune globulin (HYPERRHO/RHOGAM) syringe 300 mcg 300 mcg Intramuscular ONCE rho(D) immune globulin (RHOPHYLAC) injection 300 mcg 300 mcg Intramuscular ONCE Allergies and drug reactions: Patient has no known allergies. HOME MEDICATIONS Medications Prior to Admission Medication Sig Dispense Refill Last Dose PNV no.[id number] ( GUMMIES) 400 mcg-35 mg- 25 mg-5 mg Chew Take 1 tablet by mouth daily. 60 tablet 6 proMETHazine 25 mg tablet Take 1 tablet 2 hours prior to lab appointment 1 tablet 0 SOCIAL HISTORY Tobacco History: Social History Tobacco Use Smoking Status Never Smokeless Tobacco Never Drug History: Social History Substance and Sexual Activity Drug Use Not Currently Alcohol History: Social History Substance and Sexual Activity Alcohol Use Not Currently FAMILY HISTORY Family History Problem Relation Age of Onset Hypertension Mother No Significant Medical Problems Father Hypertension Maternal Grandmother REVIEW OF SYSTEMS General: negative Skin: negative HEENT: negative Neck: negative HEME: negative Resp: negative Cardio: negative GI: negative : negative Endo: negative Neuro: negative Back: negative MAU: negative Psych: negative VITAL SIGNS BP: (126-133)/(79-98) Temp: [37 ?C (98.6 ?F)-37.1 ?C (98.7 ?F)] Temp source: Oral (12/22 1445) Pulse: [69-99] Resp: [18-20] SpO2: [99 %-100 %] Height: [154.9 cm (5' 1")] Weight: [56.7 kg (125 lb)-57 kg (125 lb 10.6 oz)] BMI (calculated): [0-23.62] PHYSICAL EXAMINATIONS General: patient alert and in no acute distress HEENT: symmetric, negative for masses Lungs: unlabored breathing Breast: deferred Cardiology: peripheral pulses intact and regular Abdomen: soft, non-tender, non-distended, no liver, spleen or abnormal masses palpated and Gravid Extremities: no clubbing, cyanosis, or edema Neuro: patient moving all extremities, no facial droop : deferred REVIEW OF LABORATORY, PATHOLOGY, AND RADIOLOGY DATA Lab results: Type & Screen Lab Results Component Value Date/Time IABORH O NEGATIVE 12/23/2023 03:04 PM IAT Negative 12/23/2023 03:04 PM Serologies Lab Results Component Value Date/Time VZVIGG Negative 09/12/2023 04:09 PM RUBG Negative 08/14/2023 02:45 AM SYPIGG Non-reactive 08/14/2023 02:45 AM HBSAG Negative 12/23/2023 03:04 PM HBSAG 0.11 12/23/2023 03:04 PM Chlamydia Lab Results Component Value Date/Time VCAA Negative 08/14/2023 02:45 AM Group B Strep No results found for: "CGB" GTT Lab Results Component Value Date/Time GLUF 77 08/22/2023 07:14 AM DZTQ9XA 126 08/22/2023 08:18 AM GLU3H 78 08/22/2023 10:18 AM CBC Lab Results Component Value Date/Time HGB 13.0 08/14/2023 02:45 AM HCT 39.1 08/14/2023 02:45 AM PLT 191 08/14/2023 02:45 AM Active Hospital Problems Diagnosis Date Noted IUGR (intrauterine growth restriction) affecting care of mother 12/12/2023 NIPT LR Female FGR <3%ile 12/22 dopplers AEDF Needs Rhogam and Betamethasone +/- mag and admission Pyelectasis 12/12/2023 Noted on usg FU is requested for a detailed exam and echo in [place] and additional FU for IUGR will need to be scheduled. Rh negative state in antepartum period 08/15/2023 Rubella non-immune status, antepartum 08/15/2023 Address pp Abnormal maternal glucose tolerance, antepartum 08/15/2023 Pending 3hr gtt Supervision of high-risk 08/14/2023 Resolved Hospital Problems No resolved problems to display. Present on Admission: Supervision of high-risk Rh negative state in antepartum period Rubella non-immune status, antepartum Abnormal maternal glucose tolerance, antepartum IUGR (intrauterine growth restriction) affecting care of mother Pyelectasis Placenta Accreta Screening Prior ? : No Prior Uterine Surgery?: No Placenta low lying/previa in current ? : No Ultrasound suspicion of PASD in current ?: No Screening outcome: A positive screening outcome indicates a history of prior delivery or prior uterine surgery, AND the presence of either a placenta low lying/previa or ultrasound suspicion of PASD in the current . Negative screening. ASSESSMENT AND PLAN Felicity Biggs is a 27 year old at 26w0d by LMP c/w d/u (12) who presents for sFGR with elevated dopplers. 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 I agree with Dr. Macario' assessment and plan. Velia Sutton MD [facility] Notes Date/Time Note Provider Source 2024-03-30 09:18:25 Called pt with office electrician [id number]. Notified pt of results, avoiding iron supplementation, and recommendation of follow up with PCP. Informed thyroid & STI were normal. Verbalized understanding. Adilene Martínez LVN 03/30/2024 9:25 AM ODOLOGIST Adilene Martínez LVN [facility] 2024-03-27 16:29:06 Please make pt aware that her blood count is elevated. Advise to avoid iron supplementation via foods or tablet form. Advised to follow up with PCP for mgmt. Thyroid function is normal. STI tests are negative. BRODERICK Gill 03/27/2024 4:31 PM [facility] 2024-02-25 14:00:00 Images from the original note were not included. This note was copied from a baby's chart. Assessment (most recent) Assessment - 02/25/24 1400 General Information Visit Follow-up Pie Bottomer Used Yes - Qualified Pie Bottomer Used Infant Oral Assessment Oral assessment New assessment location NICU Chin Normal Palate assessment Normal Tongue assessment Normal Upper lip assessment Normal Literature Resources Education Early term/ feeding patterns;Benefits of skin to skin contact;Pump frequency;Lactogenesis;Nipp le shield use, application, washing, storage and weaning NNS at breast Cash Management Associate Observation Pumping -- 3-4oz Assist with latch Position right side Cross cradle infant with hunger cues and attempting to latch but unable to maintain deep latch, with shield was able to suck and swallow for 1 minute and then tired and fell asleep. taught mom when to stop offering and do STS Weak immature suck Interventions Nipple shield XS-16mm Follow up -- LC will continue to follow but mother states she visits often in the evening Recommended Feeding Plan Recommended feeding plan Pump/hand express minimum 8 times in 24 hours including nights. Pump for 15-25 min.;Frequent [id number] time with parents once per day mom can attempt to latch but can have STS/NNS at breast with tube feeds OTHER $ SERVICES Follow-up Monse Lawson RNC-[place], IBCLC Pager - [phone] ODOLOGIST Georgina Lawson RN [facility] 2024-02-16 18:59:17 Problem: Falls, Risk of Goal: Absence of falls 02/16/20241857 by Kalyani Woodward RN Outcome: Resolved 02/16/20241810 by Kalyani Woodward RN Outcome: Progressing as expected Problem: Complications of preeclampsia/eclampsia (risk or actual) Goal: Absence of seizure activity 02/16/20241857 by Kalyani Woodward RN Outcome: Resolved 02/16/20241810 by Kalyani Woodward RN Outcome: Progressing as expected Goal: Absence of signs and symptoms of preeclampsia 02/16/20241857 by Kalyani Woodward RN Outcome: Resolved 02/16/20241810 by Kalyani Woodward RN Outcome: Progressing as expected Problem: Discharge Planning - Goal: Mood stable 02/16/20241857 by Kalyani Woodward RN Outcome: Resolved 02/16/20241810 by Kalyani Woodward RN Outcome: Progressing as expected Problem: Infection Risk Goal: Absence of infection 02/16/20241857 by Kalyani Woodward RN Outcome: Resolved 02/16/20241810 by Woodward, Kalyani K, RN Outcome: Progressing as expected [facility] 2024-02-16 18:11:23 Problem: Falls, Risk of Goal: Absence of falls Outcome: Progressing as expected Problem: Complications of preeclampsia/eclampsia (risk or actual) Goal: Absence of seizure activity Outcome: Progressing as expected Goal: Absence of signs and symptoms of preeclampsia Outcome: Progressing as expected Problem: Discharge Planning - Goal: Mood stable Outcome: Progressing as expected Problem: Infection Risk Goal: Absence of infection Outcome: Progressing as expected [facility] 2024-02-16 00:10:13 Problem: Falls, Risk of Goal: Absence of falls Outcome: Progressing as expected Problem: Complications of preeclampsia/eclampsia (risk or actual) Goal: Absence of seizure activity Outcome: Progressing as expected Goal: Absence of signs and symptoms of preeclampsia Outcome: Progressing as expected Problem: Discharge Planning - Goal: Mood stable Outcome: Progressing as expected Problem: Infection Risk Goal: Absence of infection Outcome: Progressing as expected Y Mcnulty RN [facility] 2024-02-15 10:00:00 Images from the original note were not included. This note was copied from a baby's chart. Assessment (most recent) Assessment - 02/15/24 1000 General Information Visit Follow-up Literature Resources Education Hand expression;Maternal nutrition/hydration;Pump frequency Cash Management Associate Observation Pumping Yes drops now with hand expression, states she was in too much pain overnight to pump but will now Recommended Feeding Plan Recommended feeding plan Pump/hand express minimum 8 times in 24 hours including nights. Pump for 15-25 min. OTHER $ SERVICES Follow-up Monse Lawson RNC-[place], IBCLC Pager - [phone] Y Lawson RN [facility] 2024-02-14 17:47:45 Problem: Falls, Risk of Goal: Absence of falls Outcome: Progressing as expected Problem: Complications of preeclampsia/eclampsia (risk or actual) Goal: Absence of seizure activity Outcome: Progressing as expected Goal: Absence of signs and symptoms of preeclampsia Outcome: Progressing as expected Problem: Discharge Planning - Goal: Mood stable Outcome: Progressing as expected Problem: Infection Risk Goal: Absence of infection Outcome: Progressing as expected [facility] Justice Cordero RN [facility] 2024-02-14 12:55:00 Images from the original note were not included. This note was copied from a baby's chart. Assessment (most recent) Assessment - 02/14/24 1255 General Information Visit Follow-up Breast Pump Has provided mom with pump from [employer] Breast Pump Electric Cash Management Associate Observation Pumping Yes drops Follow up Follow up in hospital Recommended Feeding Plan Recommended feeding plan Pump/hand express minimum 8 times in 24 hours including nights. Pump for 15-25 min. OTHER $ SERVICES Follow-up Monse Lawson RNC-[place], IBCLC Pager - [phone] [facility] 2024-02-14 02:02:58 Problem: Falls, Risk of Goal: Absence of falls Outcome: Progressing as expected Problem: Complications of preeclampsia/eclampsia (risk or actual) Goal: Absence of seizure activity Outcome: Progressing as expected Goal: Absence of signs and symptoms of preeclampsia Outcome: Progressing as expected Problem: Discharge Planning - Goal: Mood stable Outcome: Progressing as expected Problem: Infection Risk Goal: Absence of infection Outcome: Progressing as expected [facility] 2024-02-13 17:15:59 Problem: Falls, Risk of Goal: Absence of falls Outcome: Progressing as expected Problem: Discharge Planning - Antepartum Goal: Absence of seizure activity Outcome: Resolved Goal: Adequate for discharge Outcome: Resolved Goal: Blood pressure within specified parameters Outcome: Resolved Problem: Complications of preeclampsia/eclampsia (risk or actual) Goal: Absence of seizure activity Outcome: Progressing as expected Goal: Absence of signs and symptoms of preeclampsia Outcome: Progressing as expected Problem: Complications of preeclampsia/eclampsia (risk or actual) Goal: Absence of seizure activity Outcome: Progressing as expected Goal: Absence of signs and symptoms of preeclampsia Outcome: Progressing as expected [facility] 2024-02-13 14:00:00 Images from the original note were not included. This note was copied from a baby's chart. Assessment (most recent) Assessment - 02/13/24 1400 General Information Visit Consult Mom's age (years) 27 years Pie Bottomer Used -- Spoke to mom in [place] Gestational age 33.3 weeks 1 Parity 1 Living Children 1 Feeding plan Breast Planned maternity leave Stay at home mom Breast Pump Needs assisted mom in completing order form for her preapproved pump from [employer] Delivery method Periods Regular Oral Assessment Oral assessment Deferred Date of 02/13/24 Time of 1116 location NICU Breast Assessment Breast Assessment Initial Symmetry Symmetrical Size M (B-C) Shape Rounded Other Soft;Extra mammary tissue/nipple extra non formed nipple on left side under breast Nipple & Areola Assessment Left Areola Pliable Right Areola Pliable Left Nipple Colostrum not visible;Everted;Short;Small Right Nipple Colostrum not visible;Everted;Short;Small Literature Resources Resources -- expressing milk for your NICU baby Education Benefits of breastmilk;Maternal nutrition/hydration;Use/set tings of pump;Pump frequency;Storage of expressed breastmilk;Labeling of expressed breastmilk;Cleaning of pump parts;Lactogenesis;How to obtain pump for after discharge Cash Management Associate Observation Pumping Yes set mom up to pump now Interventions Pump start (massage, compression, expression) heart to heart fabrics, used 21mm flange Mother demonstrated teach back of [place] use of breast pump equipment Follow up Follow up in hospital Recommended Feeding Plan Recommended feeding plan Pump/hand express minimum 8 times in 24 hours including nights. Pump for 15-25 min. OTHER $ SERVICES Consult Monse TOLBERT-[place], IBCLC Pager - [phone] [facility] 2024-02-13 11:58:01 Delivery Date: 02/13/2024 Delivery Time: 11:16 AM DELIVERY BY SECTION Date of Service: : 02/13/2024 at 11:16 AM Admitted for: sFGR with iAEDF, Primary Lower uterine tranverse section with no extension, Pfannenstiel, Closed with suture, EBL 500 cc, No complications, Findings: Normal-appearing and uterus and bilateral fallopian tubes, no intraabdominal adhesions Delivery Summary Sex: female Weight: 1200 g 1 Minute 5 Minute 10 Minute Totals: 7 9 Primary Indication: The patient was taken to the operating room for a primary section due to: sFGR with iAEDF at 33w3d weeks. Procedures: Primary Lower uterine tranverse section with no extension Specimens Removed: Placenta Clinical Trials: None Surgeon: Albret Gordon MD Campaign Management Specialist Surgeon: Agueda Jin MD OB Faculty: Jorge Mendiola MD Report: Prophylactic antibiotic, Ancef was given before patient was taken to OR. After arrival to the operating room patient was placed in the supine position with left lateral tilt after administration of spinal anesthesia. Laparotomy A pfannenstiel incision was made through the anterior abdominal wall with #10 scalpel. The incision was extended sharply with the #10 scalpel through the subcutaneous tissue to the level of fascia. The fascia was entered sharply with a #10 scalpel (Pfannenstiel) in the midline and extended in semi-elliptical fashion bluntly. The underlying muscles were dissected off the overlying fascia by grasping the superior aspect of fascia with two juanjo clamps and blunt dissection was used along the midline. The fascia was further from rectus muscle with Estrada scissor and/or cautery. In similar fashion, the lower aspect of fascia was also grsaped with two Juanjo clamps and both blunt and sharp dissection was used to separate fascia from rectus muscle. The rectus muscles were in the midline bluntly with digits. The peritoneum was then entered bluntly. The peritoneal incision was then extended superiorly and inferiorly under direct visualization with care being taken to avoid bladder and bowel. No adhesions were noted. The peritoneal incision was enlarged bluntly by lateral traction from the surgeon's and equity sales assistant's hand. Delivery A bladder flap was developed by grasping with Polish forcep and enter with Metzenbaun scissor. Then sharp and blunt dissection with Metzenbaum scissor and fingers were performed. A low transverse hysterotomy was made then with #10 scalpel and extended laterally and cephalad with fingers in a low transverse fashion with Manu Berg technique with care being taken to avoid injury to the fetus. The foot was identified and grasped and amniotic (membranes) were then entered bluntly with Allis clamp, and the amniotic fluid was noted to be clear . The single foot and body were delivered with gentle traction of the foot and fundal pressure to the level of the shoulders without need for further maneuvers. The body was rotated until one of the shoulders was just below the hysterotomy incision. Vaginal exam revealed arms across the chest. The anterior arm was delivered by splinting the humerus with jukebox routeman's fingers with downward sweeping motion. The remainder of the body and head then spontaneously devliered with assistance of fundal pressure. With delivery the baby, no extension was noted.Delayed cord clamping was not performed for 30-60 seconds due to sFGR with AEDF. Placenta was delivered spontaneously with steady traction on cord and manual separation of placenta from uterine wall. Closure Uterine cavity was cleaned after placental delivery with lap sponge x 2. The hysterotomy was closed in one layer with stitches using 0 chromic with continuous locking stitches. Hemostasis was achieved as needed with electrocautery. The ovaries/tubes/uterine surface were evaluated with above findings. Fascia was closed with running stitches using 0 vicryl. Hemostasis was checked for and found to be adequate. The subcutaneous tissue was irrigated and hemostasis was achieved where needed with electrocautery. Subcutaneous layer was closed with 2-0 vicryl in simple running fashion. The skin was closed with 3-0 monocryl in subcuticular fashion. The incision was cleaned and covered with a compression bandage and the procedure considered to be complete at this time. Intraoperative Complications: None EBL: 500 ml Uterotonics: IV Pitocin Disposition: The patient tolerated the procedure well. She was recovered in Obstetric PACU for close monitoring in stable condition, with a contracted uterus and normal transvaginal bleeding. The infant was sent to NICU. A segment of the cord was obtained for umbilical cord gases. Cord blood gas was not available at time of operative note entered. Please see Epic for update. The placenta was not sent to pathology. Justin Gordon MD ODOLOGIST Associated attestation - Jorge Mendiola MD - 02/13/2024 3:06 PM METHODOLOGIST Present for delivery. OBSTETRICS & GYNECOLOGY [facility] 2024-02-13 08:24:22 Name/ MRN / Age / Gender: Felicity Biggs, [id number] 28 year old female BMI: Estimated body mass index is 25.22 kg/m? as calculated from the following: Height as of this encounter: 1.549 m (5' 1"). Weight as of this encounter: 60.6 kg (133 lb 8 oz). Allergies: Patient has no known allergies. Last Vitals: BP Readings from Last 1 Encounters: 02/13/24 112/75 Pulse Readings from Last 1 Encounters: 02/13/24 68 SpO2 Readings from Last 1 Encounters: 02/13/24 99% Date of Surgery: 02/17/2024 Surgeon: Faculty, Ob Procedure: LABOR CONSULT OR Location: LABOR AND DELIVERY OR LOCATION-[facility] Anesthesia Preop Screen (no physical exam) Anesthesia Preop: Chart Review [facility] Communication: Patient noted to have multiple prolonged delerations overnight; once at 1am to the 60s for 3 minutes and again at 4am to the 60s for 2 minutes. In the setting of sFGR with iAEDF, recommendation is for delivery at 33w3d. Plan for primary . Last ate at dinner last night. Fetus is in breech presentation. Will notify Pedi team. Discussed risks, benefits, and alternatives with mom using SLI and she is agreeable for delivery via PCS. PONV Risk Factors: female and non-smoker Anesthesia History Anesthesia History Negative per Chart Review Previous Anesthetics/Airways Cardiovascular Cardiovascular ROS Negative per Chart Review Pulmonary Pulmonary ROS Negative per Chart Review Neuro/Musculoskeletal Neuro/Musculoskeletal ROS Negative per Chart Review GI/Hepatic GI/Hepatic ROS Negative per Chart Review Hematology Comments: CBCWBC (10*3/?L) Date Value 02/12/2024 9.14 RBC (10*6/?L) Date Value 02/12/2024 4.37 PLT (10*3/?L) Date Value 02/12/2024 176 HGB (g/dL) Date Value 02/12/2024 12.5 HCT (%) Date Value 02/12/2024 38.1 Renal Skin (+) Current IV access Endo/Other Endocrine/other ROS Negative per Chart Review Other QUALITY ASSURANCE QA LAB ANALYST Comments: Felicity Biggs is a 27 year old at 33w2d by d/u() who is admitted for sFGR w/ AEDF. 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 - BSUS on 02/08: Breech presentation. - SVE on 02/08: /-3 Plan - Twice weekly dopplers (02/12), Q3w weeks growth, TID NSTs for 1h. - Delivery at 34 weeks (02/16) unless indicated sooner. - Discussed delivery planning with SLI. Plan for primary section. PreE - Based on mild ranging BP > 4 hrs apart and P/Cr of 0.5 - BP on admission: 120-130s/70-90s - BP throughout : 100-120s/60-80s - BP overnight: 110s/70-80s - Denies PIH symptoms this AM Recent Labs 02/05/24 0359 HGB 12.0 PLT 179 CREAT 0.49* URICACID 5.3 ALT 21 LDH 175 Plan: Weekly labs (02/11), continue to monitor BP/symptoms Vaginal candidiasis Vaginal bleeding - Vaginal spotting on 02/02 associated with pelvic cramping. Also c/o white discharge - Cervix appeared closed, white discharge noted, friable vaginal tissue. 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 No swelling or erythema noted. - Denies CP, SOB, VSS - BLE dopplers on 02/02 negative for DVT Rh negative - s/p Rhogam 12/22 Abnormal GTT - elevated 1hr 150 - 3hr wnl (65, 148, 120, 107) Antepartum course reviewed - 1 h 150 (3h wnl), sero negative, Rnot immune, VZVnot immune, HPV not immune, O negative/IAT negative, GBS unknown, Pap NILM 2022 - H/H, plt: 13 / 39.1, 191 on 08/14/23 - PP control plan: Regina Kevin [facility] Fetus - Presentation on admission: breech - Lt lateral placenta - Last MFM US on 01/29: EFW 995g <3%, AC<3% ASTER 12.12. - FHT AGA - Abnormal anatomy scan; double collecting system- left kidney Routine care - IV access: PIV - GBS: unk - TDap: 01/09 - Rhogam: s/p Rhogam 12/22 - Type and screen: last 02/05/24 - 1hr 150 - BTL: Not yet discussed - Contraception: Nexplanon - DVT ppx: SCDs, encourage ambulation Pediatric Preoperative Medication Instructions Continue taking all prescribed medications except: RADHA inhibitors, ARBs, diuretics, all oral diabetes medications Anticoagulant Therapy: Defer to surgeons Insulin: Take 1/2 dose the night prior to surgery. Hold on DOS. Phentermine: Alert [facility] anesthesiologist SGLT2 Inhibitors: "gliflozins" to be held for 3 days prior to elective surgeries GLP1 Agonosit: stop 7 days prior to surgery MAC Cases: Continue taking RADHA inhibitors and ARBs ASA Classification ASA: 3 Labs: Chemistry 01/24/2024 CBC 02/12/2024 134 (L) 108 14 95 9.14 12.5 176 4.3 21 (L) 0.47 (L) 38.1 eGFR: 134.0 Date: 02/12/2024 ANC: 4.72 Date: 02/12/2024 LFTs 02/12/2024 Coags AST: 23 AP: - Prot: - Ca: 8.9 PT: 9.3 (L) Date: 02/04/2024 ALT: 15 T John: - Alb: - PTT: 27 Date: 02/04/2024 PO4: 3.0 Date: 01/24/2024 INR: 0.8 Date: 02/04/2024 Cardiac Endocrine & other pBNP: - Date: - A1C: - Date: - Trop I: - Date: - POCT A1C: - Date: - CK: - Date: - TSH: - Date: - CKMB: - Date: - FT4: - Date: - LDL: - Date: - Lact: - Date: - Procal: - Date: - Respiratory -|-|-|-|- D-dimer: - ABG Date: - Date: - Miscellaneous Type and Screen: O NEGATIVE Antibody: Positive Date: 02/10/2024 POCT : Positive Date: 08/14/2023 Current Medications: No outpatient medications have been marked as taking for the 10/29/24 encounter (Hospital Encounter). Previous Surgeries: No past surgical history on file. Anesthesia Physical Exam General no apparent distress and alert and oriented x 3 Neuro/Psych neurological Dental Abdominal (+) gravid Airway TM distance:> 5 cm Neck ROM: full Mouth opening:normal (+) Normal facies Extremity Normal extremity Pulmonary pulmonary exam normal Other Cardiovascular cardiovascular exam normal Anesthesia Plan ASA Status: 3 Plan discussed during pre-op evaluation: General, Epidural, Spinal and CSE Anesthetic plan on DOS: Spinal Anesthesia plan discussed with: patient or membership sales representative and office electrician Post-Operative Analgesia: routine analgesia & antiemetics Recovery Plan: LDR Additional comments: [facility] ANESTHESIOLOGY [facility] 2024-02-12 17:58:08 Problem: Falls, Risk of Goal: Absence of falls Outcome: Progressing as expected Problem: Discharge Planning - Antepartum Goal: Absence of seizure activity Outcome: Progressing as expected Goal: Adequate for discharge Outcome: Progressing as expected Goal: Blood pressure within specified parameters Outcome: Progressing as expected Problem: Complications of preeclampsia/eclampsia (risk or actual) Goal: Absence of seizure activity Outcome: Progressing as expected Goal: Absence of signs and symptoms of preeclampsia Outcome: Progressing as expected [facility] 2024-02-12 02:10:14 Problem: Falls, Risk of Goal: Absence of falls Outcome: Progressing as expected Problem: Discharge Planning - Antepartum Goal: Absence of seizure activity Outcome: Progressing as expected Goal: Blood pressure within specified parameters Outcome: Progressing as expected Problem: Complications of preeclampsia/eclampsia (risk or actual) Goal: Absence of seizure activity Outcome: Progressing as expected Goal: Absence of signs and symptoms of preeclampsia Outcome: Progressing as expected [facility] 2024-02-10 23:23:34 Problem: Falls, Risk of Goal: Absence of falls Outcome: Progressing as expected Problem: Discharge Planning - Antepartum Goal: Absence of seizure activity Outcome: Progressing as expected Goal: Adequate for discharge Outcome: Progressing as expected Goal: Blood pressure within specified parameters Outcome: Progressing as expected Problem: Complications of preeclampsia/eclampsia (risk or actual) Goal: Absence of seizure activity Outcome: Progressing as expected Goal: Absence of signs and symptoms of preeclampsia Outcome: Progressing as expected ODOLOGIST Joselin Worrell RN [facility] 2024-02-10 08:28:09 Problem: Falls, Risk of Goal: Absence of falls Outcome: Progressing as expected Problem: Discharge Planning - Antepartum Goal: Absence of seizure activity Outcome: Progressing as expected Goal: Adequate for discharge Outcome: Progressing as expected Goal: Blood pressure within specified parameters Outcome: Progressing as expected Problem: Complications of preeclampsia/eclampsia (risk or actual) Goal: Absence of seizure activity Outcome: Progressing as expected Goal: Absence of signs and symptoms of preeclampsia Outcome: Progressing as expected Y Kwok RN [facility] 2024-02-09 22:27:26 Problem: Falls, Risk of Goal: Absence of falls Outcome: Progressing as expected Problem: Discharge Planning - Antepartum Goal: Absence of seizure activity Outcome: Progressing as expected Goal: Adequate for discharge Outcome: Progressing as expected Goal: Blood pressure within specified parameters Outcome: Progressing as expected Problem: Complications of preeclampsia/eclampsia (risk or actual) Goal: Absence of seizure activity Outcome: Progressing as expected Goal: Absence of signs and symptoms of preeclampsia Outcome: Progressing as expected [facility] 2024-02-09 08:06:22 Problem: Falls, Risk of Goal: Absence of falls Outcome: Progressing as expected Y Gray RN [facility] 2024-02-08 21:12:15 Problem: Falls, Risk of Goal: Absence of falls Outcome: Progressing as expected Problem: Discharge Planning - Antepartum Goal: Absence of seizure activity Outcome: Progressing as expected Goal: Adequate for discharge Outcome: Progressing as expected Goal: Blood pressure within specified parameters Outcome: Progressing as expected Problem: Complications of preeclampsia/eclampsia (risk or actual) Goal: Absence of seizure activity Outcome: Progressing as expected Goal: Absence of signs and symptoms of preeclampsia Outcome: Progressing as expected [facility] 2024-02-08 07:35:57 Problem: Falls, Risk of Goal: Absence of falls Outcome: Progressing as expected Problem: Discharge Planning - Antepartum Goal: Absence of seizure activity Outcome: Progressing as expected Goal: Adequate for discharge Outcome: Progressing as expected Goal: Blood pressure within specified parameters Outcome: Progressing as expected Problem: Complications of preeclampsia/eclampsia (risk or actual) Goal: Absence of seizure activity Outcome: Progressing as expected Goal: Absence of signs and symptoms of preeclampsia Outcome: Progressing as expected [facility] 2024-02-08 00:09:02 Problem: Falls, Risk of Goal: Absence of falls Outcome: Progressing as expected Problem: Discharge Planning - Antepartum Goal: Absence of seizure activity Outcome: Progressing as expected Goal: Adequate for discharge Outcome: Progressing as expected Goal: Blood pressure within specified parameters Outcome: Progressing as expected Problem: Complications of preeclampsia/eclampsia (risk or actual) Goal: Absence of seizure activity Outcome: Progressing as expected Goal: Absence of signs and symptoms of preeclampsia Outcome: Progressing as expected [facility] 2024-02-07 18:10:34 Problem: Falls, Risk of Goal: Absence of falls Outcome: Progressing as expected Problem: Discharge Planning - Antepartum Goal: Absence of seizure activity Outcome: Progressing as expected Goal: Adequate for discharge Outcome: Progressing as expected Goal: Blood pressure within specified parameters Outcome: Progressing as expected Problem: Complications of preeclampsia/eclampsia (risk or actual) Goal: Absence of seizure activity Outcome: Progressing as expected Goal: Absence of signs and symptoms of preeclampsia Outcome: Progressing as expected [facility] 2024-02-06 19:08:57 Problem: Falls, Risk of Goal: Absence of falls Outcome: Progressing as expected Problem: Discharge Planning - Antepartum Goal: Absence of seizure activity Outcome: Progressing as expected Goal: Adequate for discharge Outcome: Progressing as expected Goal: Blood pressure within specified parameters Outcome: Progressing as expected Problem: Complications of preeclampsia/eclampsia (risk or actual) Goal: Absence of seizure activity Outcome: Progressing as expected Goal: Absence of signs and symptoms of preeclampsia Outcome: Progressing as expected [facility] Goyo Gandara RN [facility] 2024-02-05 19:20:31 Problem: Falls, Risk of Goal: Absence of falls Outcome: Progressing as expected Problem: Discharge Planning - Antepartum Goal: Absence of seizure activity Outcome: Progressing as expected Goal: Adequate for discharge Outcome: Progressing as expected Goal: Blood pressure within specified parameters Outcome: Progressing as expected Problem: Complications of preeclampsia/eclampsia (risk or actual) Goal: Absence of seizure activity Outcome: Progressing as expected Goal: Absence of signs and symptoms of preeclampsia Outcome: Progressing as expected [facility] 2024-02-04 19:13:45 Problem: Falls, Risk of Goal: Absence of falls Outcome: Progressing as expected Problem: Discharge Planning - Antepartum Goal: Absence of seizure activity Outcome: Progressing as expected Goal: Adequate for discharge Outcome: Progressing as expected Goal: Blood pressure within specified parameters Outcome: Progressing as expected Problem: Complications of preeclampsia/eclampsia (risk or actual) Goal: Absence of seizure activity Outcome: Progressing as expected Goal: Absence of signs and symptoms of preeclampsia Outcome: Progressing as expected [facility] 2024-02-04 04:55:38 Problem: Falls, Risk of Goal: Absence of falls Outcome: Progressing as expected Problem: Discharge Planning - Antepartum Goal: Absence of seizure activity Outcome: Progressing as expected Goal: Blood pressure within specified parameters Outcome: Progressing as expected Problem: Complications of preeclampsia/eclampsia (risk or actual) Goal: Absence of seizure activity Outcome: Progressing as expected Goal: Absence of signs and symptoms of preeclampsia Outcome: Progressing as expected [facility] 2024-02-03 17:20:05 Problem: Falls, Risk of Goal: Absence of falls 02/03/20241718 by Justice Cordero RN Outcome: Progressing as expected 02/03/20241718 by Justice Cordero RN Outcome: Progressing as expected Problem: Discharge Planning - Antepartum Goal: Absence of seizure activity Outcome: Progressing as expected Goal: Adequate for discharge Outcome: Progressing as expected Goal: Blood pressure within specified parameters Outcome: Progressing as expected Problem: Complications of preeclampsia/eclampsia (risk or actual) Goal: Absence of seizure activity Outcome: Progressing as expected Goal: Absence of signs and symptoms of preeclampsia Outcome: Progressing as expected [facility] 2024-02-03 04:50:06 Problem: Falls, Risk of Goal: Absence of falls Outcome: Progressing as expected Problem: Discharge Planning - Antepartum Goal: Absence of seizure activity Outcome: Progressing as expected Goal: Blood pressure within specified parameters Outcome: Progressing as expected Problem: Complications of preeclampsia/eclampsia (risk or actual) Goal: Absence of seizure activity Outcome: Progressing as expected Goal: Absence of signs and symptoms of preeclampsia Outcome: Progressing as expected [facility] 2024-02-02 18:23:07 Problem: Falls, Risk of Goal: Absence of falls Outcome: Progressing as expected Problem: Discharge Planning - Antepartum Goal: Absence of seizure activity Outcome: Progressing as expected Goal: Adequate for discharge Outcome: Progressing as expected Goal: Blood pressure within specified parameters Outcome: Progressing as expected Problem: Complications of preeclampsia/eclampsia (risk or actual) Goal: Absence of seizure activity Outcome: Progressing as expected Goal: Absence of signs and symptoms of preeclampsia Outcome: Progressing as expected Y Contreras RN [facility] 2024-02-02 08:28:26 Problem: Falls, Risk of Goal: Absence of falls Outcome: Progressing as expected Problem: Discharge Planning - Antepartum Goal: Absence of seizure activity Outcome: Progressing as expected Goal: Adequate for discharge Outcome: Progressing as expected Goal: Blood pressure within specified parameters Outcome: Progressing as expected Problem: Complications of preeclampsia/eclampsia (risk or actual) Goal: Absence of seizure activity Outcome: Progressing as expected Goal: Absence of signs and symptoms of preeclampsia Outcome: Progressing as expected [facility] 2024-02-02 01:43:12 Problem: Falls, Risk of Goal: Absence of falls Outcome: Progressing as expected Problem: Discharge Planning - Antepartum Goal: Absence of seizure activity Outcome: Progressing as expected Goal: Blood pressure within specified parameters Outcome: Progressing as expected Problem: Complications of preeclampsia/eclampsia (risk or actual) Goal: Absence of seizure activity Outcome: Progressing as expected Goal: Absence of signs and symptoms of preeclampsia Outcome: Progressing as expected [facility] 2024-02-01 18:31:09 Problem: Falls, Risk of Goal: Absence of falls 02/01/20241830 by Macy Contreras RN Outcome: Progressing as expected 02/01/20241830 by Macy Contreras RN Outcome: Progressing as expected Problem: Discharge Planning - Antepartum Goal: Absence of seizure activity 02/01/20241830 by Macy Contreras RN Outcome: Progressing as expected 02/01/20241830 by Macy Contreras RN Outcome: Progressing as expected Goal: Adequate for discharge 02/01/20241830 by Macy Contreras RN Outcome: Progressing as expected 02/01/2024 183 by Macy Contreras RN Outcome: Progressing as expected Goal: Blood pressure within specified parameters 02/01/20241830 by Macy Contreras RN Outcome: Progressing as expected 02/01/20241830 by Macy Contreras RN Outcome: Progressing as expected Problem: Complications of preeclampsia/eclampsia (risk or actual) Goal: Absence of seizure activity 02/01/20241830 by Macy Contreras RN Outcome: Progressing as expected 02/01/20241830 by Macy Contreras RN Outcome: Progressing as expected Goal: Absence of signs and symptoms of preeclampsia 02/01/20241830 by Macy Contreras RN Outcome: Progressing as expected 02/01/20241830 by Macy Contreras RN Outcome: Progressing as expected [facility] 2024-02-01 05:16:56 Problem: Falls, Risk of Goal: Absence of falls Outcome: Progressing as expected Problem: Discharge Planning - Antepartum Goal: Absence of seizure activity Outcome: Progressing as expected Goal: Adequate for discharge Outcome: Progressing as expected Goal: Blood pressure within specified parameters Outcome: Progressing as expected [facility] 2024-01-31 18:26:39 Problem: Falls, Risk of Goal: Absence of falls Outcome: Progressing as expected Problem: Discharge Planning - Antepartum Goal: Absence of seizure activity Outcome: Progressing as expected Goal: Adequate for discharge Outcome: Progressing as expected Goal: Blood pressure within specified parameters Outcome: Progressing as expected Problem: Complications of preeclampsia/eclampsia (risk or actual) Goal: Absence of seizure activity Outcome: Progressing as expected Goal: Absence of signs and symptoms of preeclampsia Outcome: Progressing as expected [facility] 2024-01-30 09:09:40 Problem: Falls, Risk of Goal: Absence of falls Outcome: Progressing as expected Problem: Discharge Planning - Antepartum Goal: Absence of seizure activity Outcome: Progressing as expected Goal: Adequate for discharge Outcome: Progressing as expected Goal: Blood pressure within specified parameters Outcome: Progressing as expected Problem: Complications of preeclampsia/eclampsia (risk or actual) Goal: Absence of seizure activity Outcome: Progressing as expected Goal: Absence of signs and symptoms of preeclampsia Outcome: Progressing as expected ODOLOGIST Martha Hernandez RN [facility] 2024-01-30 02:31:39 Problem: Falls, Risk of Goal: Absence of falls 01/30/2024230 by Alla Delgado RN Outcome: Progressing as expected 01/29/20241946 by Alla Delgado RN Outcome: Progressing as expected Problem: Discharge Planning - Antepartum Goal: Absence of seizure activity 01/30/2024230 by Alla Delgado RN Outcome: Progressing as expected 01/29/20241946 by Alla Delgado RN Outcome: Progressing as expected Goal: Adequate for discharge 01/30/2024230 by Alla Delgado RN Outcome: Progressing as expected 01/29/20241946 by Alla Delgado RN Outcome: Progressing as expected Goal: Blood pressure within specified parameters 01/30/2024230 by Alla Delgado RN Outcome: Progressing as expected 01/29/20241946 by Alla Delgado RN Outcome: Progressing as expected Problem: Complications of preeclampsia/eclampsia (risk or actual) Goal: Absence of seizure activity 01/30/2024230 by Alla Delgado RN Outcome: Progressing as expected 01/29/20241946 by Alla Delgado RN Outcome: Progressing as expected Goal: Absence of signs and symptoms of preeclampsia 01/30/2024230 by Alla Delgado RN Outcome: Progressing as expected 01/29/20241946 by Alla Delgado RN Outcome: Progressing as expected [facility] 2024-01-29 19:47:35 Problem: Falls, Risk of Goal: Absence of falls Outcome: Progressing as expected Problem: Discharge Planning - Antepartum Goal: Absence of seizure activity Outcome: Progressing as expected Goal: Adequate for discharge Outcome: Progressing as expected Goal: Blood pressure within specified parameters Outcome: Progressing as expected Problem: Complications of preeclampsia/eclampsia (risk or actual) Goal: Absence of seizure activity Outcome: Progressing as expected Goal: Absence of signs and symptoms of preeclampsia Outcome: Progressing as expected [facility] 2024-01-29 18:26:28 Problem: Falls, Risk of Goal: Absence of falls 01/29/20241825 by Justice Cordero RN Outcome: Progressing as expected 01/29/20241824 by Justice Codrero RN Outcome: Progressing as expected Problem: Discharge Planning - Antepartum Goal: Absence of seizure activity 01/29/20241825 by Justice Cordero RN Outcome: Progressing as expected 01/29/2024 182 by Justice Cordero RN Outcome: Progressing as expected Goal: Adequate for discharge 01/29/20241825 by Justice Cordero RN Outcome: Progressing as expected 01/29/2024 182 by Justice Cordero RN Outcome: Progressing as expected Goal: Blood pressure within specified parameters 01/29/20241825 by Justice Cordero RN Outcome: Progressing as expected 01/29/2024 182 by Justice Cordero RN Outcome: Progressing as expected Problem: Complications of preeclampsia/eclampsia (risk or actual) Goal: Absence of seizure activity 01/29/20241825 by Justice Cordero RN Outcome: Progressing as expected 01/29/2024 182 by Justice Cordero RN Outcome: Progressing as expected Goal: Absence of signs and symptoms of preeclampsia 01/29/20241825 by Justice Cordero RN Outcome: Progressing as expected 01/29/2024 182 by Justice Cordero RN Outcome: Progressing as expected [facility] 2024-01-29 18:26:06 Problem: Falls, Risk of Goal: Absence of falls Outcome: Progressing as expected Problem: Discharge Planning - Antepartum Goal: Absence of seizure activity Outcome: Progressing as expected Goal: Adequate for discharge Outcome: Progressing as expected Goal: Blood pressure within specified parameters Outcome: Progressing as expected Problem: Complications of preeclampsia/eclampsia (risk or actual) Goal: Absence of seizure activity Outcome: Progressing as expected Goal: Absence of signs and symptoms of preeclampsia Outcome: Progressing as expected [facility] 2024-01-28 19:28:41 Problem: Falls, Risk of Goal: Absence of falls Outcome: Progressing as expected Problem: Discharge Planning - Antepartum Goal: Absence of seizure activity Outcome: Progressing as expected Goal: Adequate for discharge Outcome: Progressing as expected Goal: Blood pressure within specified parameters Outcome: Progressing as expected Problem: Complications of preeclampsia/eclampsia (risk or actual) Goal: Absence of seizure activity Outcome: Progressing as expected Goal: Absence of signs and symptoms of preeclampsia Outcome: Progressing as expected [facility] 2024-01-28 17:47:32 Problem: Falls, Risk of Goal: Absence of falls Outcome: Progressing as expected Problem: Discharge Planning - Antepartum Goal: Absence of seizure activity Outcome: Progressing as expected Goal: Adequate for discharge Outcome: Progressing as expected Goal: Blood pressure within specified parameters Outcome: Progressing as expected Problem: Complications of preeclampsia/eclampsia (risk or actual) Goal: Absence of seizure activity Outcome: Progressing as expected Goal: Absence of signs and symptoms of preeclampsia Outcome: Progressing as expected [facility] 2024-01-27 19:41:54 Problem: Falls, Risk of Goal: Absence of falls Outcome: Progressing as expected Problem: Discharge Planning - Antepartum Goal: Absence of seizure activity Outcome: Progressing as expected Goal: Adequate for discharge Outcome: Progressing as expected Goal: Blood pressure within specified parameters Outcome: Progressing as expected Problem: Complications of preeclampsia/eclampsia (risk or actual) Goal: Absence of seizure activity Outcome: Progressing as expected Goal: Absence of signs and symptoms of preeclampsia Outcome: Progressing as expected [facility] Nguyen Cornelius RN [facility] 2024-01-26 21:23:41 Problem: Falls, Risk of Goal: Absence of falls Outcome: Progressing as expected Problem: Discharge Planning - Antepartum Goal: Absence of seizure activity Outcome: Progressing as expected Goal: Adequate for discharge Outcome: Progressing as expected Goal: Blood pressure within specified parameters Outcome: Progressing as expected Problem: Complications of preeclampsia/eclampsia (risk or actual) Goal: Absence of seizure activity Outcome: Progressing as expected Goal: Absence of signs and symptoms of preeclampsia Outcome: Progressing as expected [facility] 2024-01-26 05:38:58 Problem: Falls, Risk of Goal: Absence of falls Outcome: Progressing as expected Problem: Discharge Planning - Antepartum Goal: Absence of seizure activity Outcome: Progressing as expected Goal: Blood pressure within specified parameters Outcome: Progressing as expected Problem: Complications of preeclampsia/eclampsia (risk or actual) Goal: Absence of seizure activity Outcome: Progressing as expected Goal: Absence of signs and symptoms of preeclampsia Outcome: Progressing as expected [facility] 2024-01-25 08:58:19 Problem: Falls, Risk of Goal: Absence of falls Outcome: Progressing as expected Problem: Discharge Planning - Antepartum Goal: Absence of seizure activity Outcome: Progressing as expected Goal: Adequate for discharge Outcome: Progressing as expected Goal: Blood pressure within specified parameters Outcome: Progressing as expected Problem: Complications of preeclampsia/eclampsia (risk or actual) Goal: Absence of seizure activity Outcome: Progressing as expected Goal: Absence of signs and symptoms of preeclampsia Outcome: Progressing as expected [facility] 2024-01-25 02:36:44 Problem: Falls, Risk of Goal: Absence of falls Outcome: Progressing as expected Problem: Discharge Planning - Antepartum Goal: Absence of seizure activity Outcome: Progressing as expected Goal: Adequate for discharge Outcome: Progressing as expected Goal: Blood pressure within specified parameters Outcome: Progressing as expected Problem: Complications of preeclampsia/eclampsia (risk or actual) Goal: Absence of seizure activity Outcome: Progressing as expected Goal: Absence of signs and symptoms of preeclampsia Outcome: Progressing as expected [facility] Sue Kendall RN [facility] 2024-01-24 15:28:32 Problem: Falls, Risk of Goal: Absence of falls Outcome: Progressing as expected Problem: Discharge Planning - Antepartum Goal: Absence of seizure activity Outcome: Progressing as expected Goal: Adequate for discharge Outcome: Progressing as expected Goal: Blood pressure within specified parameters Outcome: Progressing as expected Problem: Complications of preeclampsia/eclampsia (risk or actual) Goal: Absence of seizure activity Outcome: Progressing as expected Goal: Absence of signs and symptoms of preeclampsia Outcome: Progressing as expected [facility] 2024-01-24 01:36:43 Problem: Falls, Risk of Goal: Absence of falls Outcome: Progressing as expected Problem: Discharge Planning - Antepartum Goal: Absence of seizure activity Outcome: Progressing as expected Goal: Adequate for discharge Outcome: Progressing as expected Goal: Blood pressure within specified parameters Outcome: Progressing as expected Problem: Complications of preeclampsia/eclampsia (risk or actual) Goal: Absence of seizure activity Outcome: Progressing as expected Goal: Absence of signs and symptoms of preeclampsia Outcome: Progressing as expected [facility] 2024-01-23 13:39:38 Problem: Falls, Risk of Goal: Absence of falls Outcome: Progressing as expected Problem: Discharge Planning - Antepartum Goal: Absence of seizure activity Outcome: Progressing as expected Goal: Adequate for discharge Outcome: Progressing as expected Goal: Blood pressure within specified parameters Outcome: Progressing as expected Problem: Complications of preeclampsia/eclampsia (risk or actual) Goal: Absence of seizure activity Outcome: Progressing as expected Goal: Absence of signs and symptoms of preeclampsia Outcome: Progressing as expected Ilene Falcon RN [facility] 2024-01-22 07:30:34 Problem: Falls, Risk of Goal: Absence of falls Outcome: Progressing as expected Problem: Discharge Planning - Antepartum Goal: Absence of seizure activity Outcome: Progressing as expected Goal: Adequate for discharge Outcome: Progressing as expected Goal: Blood pressure within specified parameters Outcome: Progressing as expected Problem: Complications of preeclampsia/eclampsia (risk or actual) Goal: Absence of seizure activity Outcome: Progressing as expected Goal: Absence of signs and symptoms of preeclampsia Outcome: Progressing as expected [facility] 2024-01-21 22:54:18 Problem: Falls, Risk of Goal: Absence of falls 01/21/20242253 by Sue Kendall RN Outcome: Progressing as expected 01/21/20242247 by Sue Kendall RN Outcome: Progressing as expected Problem: Discharge Planning - Antepartum Goal: Absence of seizure activity 01/21/20242253 by Sue Kendall RN Outcome: Progressing as expected 01/21/20242247 by Sue Kendall RN Outcome: Progressing as expected Goal: Adequate for discharge 01/21/20242253 by Sue Kendall RN Outcome: Progressing as expected 01/21/20242247 by Sue Kendall RN Outcome: Progressing as expected Goal: Blood pressure within specified parameters 01/21/20242253 by Sue Kendall RN Outcome: Progressing as expected 01/21/20242247 by Sue Kendall RN Outcome: Progressing as expected Problem: Complications of preeclampsia/eclampsia (risk or actual) Goal: Absence of seizure activity 01/21/20242253 by Black, Sue C, RN Outcome: Progressing as expected 01/21/20248 by Sue Kendall RN Outcome: Progressing as expected Goal: Absence of signs and symptoms of preeclampsia 01/21/20244 by Sue Kendall RN Outcome: Progressing as expected 01/21/20242247 by Sue Kendall RN Outcome: Progressing as expected [facility] 2024-01-21 22:48:42 Problem: Falls, Risk of Goal: Absence of falls Outcome: Progressing as expected Problem: Discharge Planning - Antepartum Goal: Absence of seizure activity Outcome: Progressing as expected Goal: Adequate for discharge Outcome: Progressing as expected Goal: Blood pressure within specified parameters Outcome: Progressing as expected Problem: Complications of preeclampsia/eclampsia (risk or actual) Goal: Absence of seizure activity Outcome: Progressing as expected Goal: Absence of signs and symptoms of preeclampsia Outcome: Progressing as expected [facility] 2024-01-21 12:14:59 Pt had usg today, 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 Krause, recommended for pt to follow up at L&D. Pt notified verbalized understanding will head to L&D. Report called and given to BRODERICK Pacheco RN 01/21/2024 12:17 PM [facility] 2024-01-18 13:45:30 Problem: Discharge Planning - Antepartum Goal: Absence of seizure activity Outcome: Progressing as expected Goal: Adequate for discharge Outcome: Progressing as expected Goal: Blood pressure within specified parameters Outcome: Progressing as expected Problem: Falls, Risk of Goal: Absence of falls Outcome: Progressing as expected Problem: Complications of preeclampsia/eclampsia (risk or actual) Goal: Absence of seizure activity Outcome: Progressing as expected Goal: Absence of signs and symptoms of preeclampsia Outcome: Progressing as expected Negin Lehman RN [facility] 2024-01-17 23:08:41 Problem: Discharge Planning - Antepartum Goal: Absence of seizure activity Outcome: Progressing as expected Goal: Adequate for discharge Outcome: Progressing as expected Goal: Blood pressure within specified parameters Outcome: Progressing as expected Problem: Falls, Risk of Goal: Absence of falls Outcome: Progressing as expected Problem: Complications of preeclampsia/eclampsia (risk or actual) Goal: Absence of seizure activity Outcome: Progressing as expected Goal: Absence of signs and symptoms of preeclampsia Outcome: Progressing as expected Macey Coombs RN [facility] 2024-01-17 15:43:57 Problem: Discharge Planning - Antepartum Goal: Absence of seizure activity Outcome: Progressing as expected Goal: Adequate for discharge Outcome: Progressing as expected Goal: Blood pressure within specified parameters Outcome: Progressing as expected Problem: Falls, Risk of Goal: Absence of falls Outcome: Progressing as expected Problem: Complications of preeclampsia/eclampsia (risk or actual) Goal: Absence of seizure activity Outcome: Progressing as expected Goal: Absence of signs and symptoms of preeclampsia Outcome: Progressing as expected T Alla Delgado RN [facility] 2024-01-17 10:32:27 Problem: Intrapartum process (including labor pain) Goal: Absence of or reduction of complications of labor Outcome: Resolved Goal: Able to cope with pain Outcome: Resolved Goal: Adequate to move to next level of care Outcome: Resolved Goal: Reduction in pain sensation Outcome: Resolved uben [facility] 2024-01-16 19:03:57 Problem: Intrapartum process (including labor pain) Goal: Absence of or reduction of complications of labor Outcome: Progressing as expected Goal: Able to cope with pain Outcome: Progressing as expected Goal: Adequate to move to next level of care Outcome: Progressing as expected Goal: Reduction in pain sensation Outcome: Progressing as expected Problem: Discharge Planning - Antepartum Goal: Absence of seizure activity Outcome: Progressing as expected Goal: Adequate for discharge Outcome: Progressing as expected Goal: Blood pressure within specified parameters Outcome: Progressing as expected Problem: Falls, Risk of Goal: Absence of falls Outcome: Progressing as expected Problem: Complications of preeclampsia/eclampsia (risk or actual) Goal: Absence of seizure activity Outcome: Progressing as expected Goal: Absence of signs and symptoms of preeclampsia Outcome: Progressing as expected Sandrita Leija RN [facility] 2024-01-16 17:27:20 Problem: Discharge Planning - Antepartum Goal: Absence of seizure activity Outcome: Progressing as expected Goal: Adequate for discharge Outcome: Progressing as expected Goal: Blood pressure within specified parameters Outcome: Progressing as expected [facility] 2024-01-15 19:56:07 Problem: Intrapartum process (including labor pain) Goal: Absence of or reduction of complications of labor Outcome: Progressing as expected Goal: Able to cope with pain Outcome: Progressing as expected Goal: Adequate to move to next level of care Outcome: Progressing as expected Goal: Reduction in pain sensation Outcome: Progressing as expected Problem: Discharge Planning - Antepartum Goal: Absence of seizure activity Outcome: Progressing as expected Goal: Adequate for discharge Outcome: Progressing as expected Goal: Blood pressure within specified parameters Outcome: Progressing as expected Problem: Falls, Risk of Goal: Absence of falls Outcome: Progressing as expected Problem: Complications of preeclampsia/eclampsia (risk or actual) Goal: Absence of seizure activity Outcome: Progressing as expected Goal: Absence of signs and symptoms of preeclampsia Outcome: Progressing as expected Renay Villalpando RN [facility] 2024-01-15 09:32:19 Problem: Intrapartum process (including labor pain) Goal: Absence of or reduction of complications of labor Outcome: Progressing as expected Goal: Able to cope with pain Outcome: Progressing as expected Goal: Adequate to move to next level of care Outcome: Progressing as expected Goal: Reduction in pain sensation Outcome: Progressing as expected Problem: Discharge Planning - Antepartum Goal: Absence of seizure activity Outcome: Progressing as expected Goal: Adequate for discharge Outcome: Progressing as expected Goal: Blood pressure within specified parameters Outcome: Progressing as expected Problem: Falls, Risk of Goal: Absence of falls Outcome: Progressing as expected Problem: Complications of preeclampsia/eclampsia (risk or actual) Goal: Absence of seizure activity Outcome: Progressing as expected Goal: Absence of signs and symptoms of preeclampsia Outcome: Progressing as expected Kalyani Kwok RN [facility] 2024-01-15 04:35:11 Problem: Intrapartum process (including labor pain) Goal: Absence of or reduction of complications of labor Outcome: Progressing as expected Goal: Able to cope with pain Outcome: Progressing as expected Goal: Adequate to move to next level of care Outcome: Progressing as expected Goal: Reduction in pain sensation Outcome: Progressing as expected Problem: Discharge Planning - Antepartum Goal: Absence of seizure activity Outcome: Progressing as expected Goal: Blood pressure within specified parameters Outcome: Progressing as expected Problem: Falls, Risk of Goal: Absence of falls Outcome: Progressing as expected Problem: Complications of preeclampsia/eclampsia (risk or actual) Goal: Absence of seizure activity Outcome: Progressing as expected Goal: Absence of signs and symptoms of preeclampsia Outcome: Progressing as expected [facility] 2024-01-14 08:32:06 Problem: Intrapartum process (including labor pain) Goal: Absence of or reduction of complications of labor Outcome: Change in patient condition/care plan Goal: Able to cope with pain Outcome: Progressing as expected Goal: Adequate to move to next level of care Outcome: Progressing as expected Goal: Reduction in pain sensation Outcome: Progressing as expected Problem: Discharge Planning - Antepartum Goal: Absence of seizure activity Outcome: Progressing as expected Goal: Adequate for discharge Outcome: Progressing as expected Goal: Blood pressure within specified parameters Outcome: Progressing as expected Problem: Falls, Risk of Goal: Absence of falls Outcome: Progressing as expected Problem: Complications of preeclampsia/eclampsia (risk or actual) Goal: Absence of seizure activity Outcome: Progressing as expected Goal: Absence of signs and symptoms of preeclampsia Outcome: Progressing as expected [facility] 2024-01-13 20:50:05 Problem: Intrapartum process (including labor pain) Goal: Absence of or reduction of complications of labor Outcome: Progressing as expected Goal: Able to cope with pain Outcome: Progressing as expected Goal: Adequate to move to next level of care Outcome: Progressing as expected Goal: Reduction in pain sensation Outcome: Progressing as expected Problem: Discharge Planning - Antepartum Goal: Absence of seizure activity Outcome: Progressing as expected Goal: Adequate for discharge Outcome: Progressing as expected Goal: Blood pressure within specified parameters Outcome: Progressing as expected Problem: Falls, Risk of Goal: Absence of falls Outcome: Progressing as expected Problem: Complications of preeclampsia/eclampsia (risk or actual) Goal: Absence of seizure activity Outcome: Progressing as expected Goal: Absence of signs and symptoms of preeclampsia Outcome: Progressing as expected T Maria Teresa Parry RN [facility] 2024-01-13 18:50:31 Problem: Intrapartum process (including labor pain) Goal: Absence of or reduction of complications of labor Outcome: Progressing as expected Goal: Able to cope with pain Outcome: Progressing as expected Goal: Adequate to move to next level of care Outcome: Progressing as expected Goal: Reduction in pain sensation Outcome: Progressing as expected Problem: Discharge Planning - Antepartum Goal: Absence of seizure activity Outcome: Progressing as expected Goal: Adequate for discharge Outcome: Progressing as expected Goal: Blood pressure within specified parameters Outcome: Progressing as expected Problem: Falls, Risk of Goal: Absence of falls Outcome: Progressing as expected Problem: Complications of preeclampsia/eclampsia (risk or actual) Goal: Absence of seizure activity Outcome: Progressing as expected Goal: Absence of signs and symptoms of preeclampsia Outcome: Progressing as expected Justice Cordero RN [facility] 2024-01-12 13:26:49 Problem: Intrapartum process (including labor pain) Goal: Absence of or reduction of complications of labor Outcome: Progressing as expected Goal: Able to cope with pain Outcome: Progressing as expected Goal: Adequate to move to next level of care Outcome: Progressing as expected Goal: Reduction in pain sensation Outcome: Progressing as expected Problem: Discharge Planning - Antepartum Goal: Absence of seizure activity Outcome: Progressing as expected Goal: Adequate for discharge Outcome: Progressing as expected Goal: Blood pressure within specified parameters Outcome: Progressing as expected Problem: Falls, Risk of Goal: Absence of falls Outcome: Progressing as expected Problem: Complications of preeclampsia/eclampsia (risk or actual) Goal: Absence of seizure activity Reactivated Goal: Absence of signs and symptoms of preeclampsia Reactivated Lupe Parry RN [facility] 2024-01-12 00:44:27 Problem: Intrapartum process (including labor pain) Goal: Absence of or reduction of complications of labor Outcome: Progressing as expected Goal: Able to cope with pain Outcome: Progressing as expected Goal: Adequate to move to next level of care Outcome: Progressing as expected Goal: Reduction in pain sensation Outcome: Progressing as expected Problem: Discharge Planning - Antepartum Goal: Absence of seizure activity Outcome: Progressing as expected Goal: Adequate for discharge Outcome: Progressing as expected Goal: Blood pressure within specified parameters Outcome: Progressing as expected Problem: Falls, Risk of Goal: Absence of falls Outcome: Progressing as expected Joselin Worrell RN [facility] 2024-01-11 07:43:06 Problem: Intrapartum process (including labor pain) Goal: Absence of or reduction of complications of labor Outcome: Progressing as expected Goal: Able to cope with pain Outcome: Progressing as expected Goal: Adequate to move to next level of care Outcome: Progressing as expected Goal: Reduction in pain sensation Outcome: Progressing as expected Lisa Shukla RN [facility] 2024-01-11 03:51:35 Problem: Discharge Planning - Antepartum Goal: Absence of seizure activity Outcome: Progressing as expected Goal: Adequate for discharge Outcome: Progressing as expected Goal: Blood pressure within specified parameters Outcome: Progressing as expected Problem: Intrapartum process (including labor pain) Goal: Absence of or reduction of complications of labor Outcome: Progressing as expected Goal: Able to cope with pain Outcome: Progressing as expected Goal: Adequate to move to next level of care Outcome: Progressing as expected Goal: Reduction in pain sensation Outcome: Progressing as expected Problem: Falls, Risk of Goal: Absence of falls Outcome: Progressing as expected Wendy Menchaca RN [facility] 2024-01-10 18:31:32 Problem: Intrapartum process (including labor pain) Goal: Absence of or reduction of complications of labor Outcome: Progressing as expected Goal: Able to cope with pain Outcome: Progressing as expected Goal: Adequate to move to next level of care Outcome: Progressing as expected Goal: Reduction in pain sensation Outcome: Progressing as expected Problem: Discharge Planning - Antepartum Goal: Absence of seizure activity Outcome: Progressing as expected Goal: Adequate for discharge Outcome: Progressing as expected Goal: Blood pressure within specified parameters Outcome: Progressing as expected Problem: Falls, Risk of Goal: Absence of falls Outcome: Progressing as expected [facility] 2024-01-10 09:28:02 Name/ MRN / Age / Gender: Felicity Biggs, [id number] 27 year old female BMI: Estimated body mass index is 25.13 kg/m? as calculated from the following: Height as of this encounter: 1.549 m (5' 1"). Weight as of this encounter: 60.3 kg (133 lb). Allergies: Patient has no known allergies. Last Vitals: BP Readings from Last 1 Encounters: 01/10/24 113/86 Pulse Readings from Last 1 Encounters: 01/10/24 87 SpO2 Readings from Last 1 Encounters: 01/10/24 100% Date of Surgery: Surgeon: * Surgery not found * Procedure: LABOR CONSULT OR Location: * No surgery found * Anesthesia Preop Eval (physical exam) Anesthesia Preop: Chart Review and [id number] PONV Risk Factors: female and non-smoker Anesthesia History Anesthesia History Negative per Chart Review Previous Anesthetics/Airways Cardiovascular Cardiovascular ROS Negative per Chart Review (-) Hypertension Pulmonary Pulmonary ROS Negative per Chart Review (-) Asthma (-) Tobacco use Neuro/Musculoskeletal Neuro/Musculoskeletal ROS Negative per Chart Review (-) Obesity GI/Hepatic GI/Hepatic ROS Negative per Chart Review Hematology Comments: CBCWBC (10*3/?L) Date Value 01/02/2024 11.37 (H) RBC (10*6/?L) Date Value 01/02/2024 4.17 PLT (10*3/?L) Date Value 01/02/2024 216 HGB (g/dL) Date Value 01/02/2024 11.7 HCT (%) Date Value 01/02/2024 36.1 Renal Comments: BMPNo results found for: "NA", "K", "CA", "CL", "BUN", "CREAT", "GLU", "TCO2" Skin (+) Current IV access Endo/Other Endocrine/other ROS Negative per Chart Review Comments: No results found for: "HGBA1C" Other (-) Tobacco use [employer]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 sFGR Oligohydramnios, resolved - Dx at 24 wk US - Oligohydramnios noted 12/25; resolved on US today - EFW and AC <3%tile; normal dopplers [facility] US 01/06/24 - echo wnl 12/17/23 - Amniocentesis (12/22), Parvo, CMV, Toxo neg; nml microarray; NIPT low risk - low risk NIPT, negative carrier screen - s/p NICU consult 12/22, desires all interventions - s/p BMZ series 12/23 - AEDF noted on [facility] today, sent to triage for prolonged monitoring and plan of care - Denies consistent ctx, lof, vb, dfm Dispo: Admit to AP for 24hr obs with continuous monitoring in the setting of sFGR (by EFW and AC) and AEDF. 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) and thickened placenta (7.4cm) - Pyelectasis: Left 5.6, Right 6.8 (12/16) - echo WNL (12/16) Rh negative - s/p Rhogam 12/22 Abnormal GTT - elevated 1hr 150 - 3hr wnl (65, 148, 120, 107) Antepartum course reviewed - 1 h 150 (3h wnl), sero negative, Rnot immune, VZVnot immune, HPV not immune, O negative/IAT negative, GBS unknown, Pap NILM 2022 - H/H, plt: 13 / 39.1, 191 on 08/14/23 - PP control plan: deferred - [place] [facility] Pediatric N/A Preoperative Medication Instructions Continue taking all prescribed medications except: RADHA inhibitors, ARBs, diuretics, all oral diabetes medications Anticoagulant Therapy: Defer to surgeons Insulin: Take 1/2 dose the night prior to surgery. Hold on DOS. Phentermine: Alert [facility] anesthesiologist SGLT2 Inhibitors: "gliflozins" to be held for 3 days prior to elective surgeries GLP1 Agonosit: stop 7 days prior to surgery MAC Cases: Continue taking ARDHA inhibitors and ARBs ASA Classification ASA: 2 Labs: Chemistry - CBC 01/02/2024 - - - - 11.37 (H) 11.7 216 - - - 36.1 eGFR: - Date: - ANC: 8.15 (H) Date: 01/02/2024 LFTs - Coags AST: - AP: - Prot: - Ca: - PT: - Date: - ALT: - T John: - Alb: - PTT: - Date: - PO4: - Date: - INR: - Date: - Cardiac Endocrine & other pBNP: - Date: - A1C: - Date: - Trop I: - Date: - POCT A1C: - Date: - CK: - Date: - TSH: - Date: - CKMB: - Date: - FT4: - Date: - LDL: - Date: - Lact: - Date: - Procal: - Date: - Respiratory -|-|-|-|- D-dimer: - ABG Date: - Date: - Miscellaneous Type and Screen: O NEGATIVE Antibody: Positive Date: 01/09/2024 POCT : Positive Date: 08/14/2023 Current Medications: No outpatient medications have been marked as taking for the 01/09/24 encounter (Hospital Encounter). Previous Surgeries: No past surgical history on file. Anesthesia Physical Exam General no apparent distress and alert and oriented x 3 Neuro/Psych Dental no notable dental hx Abdominal (+) gravid Airway Mallampati score:II Extremity Pulmonary pulmonary exam normal Other Cardiovascular cardiovascular exam normal Anesthesia Plan ASA Status: 2 Plan discussed during pre-op evaluation: General, Epidural, Spinal, CSE and Regional T ANESTHESIOLOGY [facility] 2024-01-10 07:56:49 Problem: Intrapartum process (including labor pain) Goal: Absence of or reduction of complications of labor Outcome: Progressing as expected Goal: Able to cope with pain Outcome: Progressing as expected Goal: Adequate to move to next level of care Outcome: Progressing as expected Goal: Reduction in pain sensation Outcome: Progressing as expected Problem: Discharge Planning - Antepartum Goal: Absence of seizure activity Outcome: Progressing as expected Goal: Adequate for discharge Outcome: Progressing as expected Goal: Blood pressure within specified parameters Outcome: Progressing as expected Problem: Falls, Risk of Goal: Absence of falls Outcome: Progressing as expected T [facility] 2024-01-10 06:44:40 Problem: Intrapartum process (including labor pain) Goal: Absence of or reduction of complications of labor Outcome: Progressing as expected Goal: Able to cope with pain Outcome: Progressing as expected Goal: Adequate to move to next level of care Outcome: Progressing as expected Goal: Reduction in pain sensation Outcome: Progressing as expected Problem: Discharge Planning - Antepartum Goal: Absence of seizure activity Outcome: Progressing as expected Goal: Adequate for discharge Outcome: Progressing as expected Goal: Blood pressure within specified parameters Outcome: Progressing as expected Problem: Falls, Risk of Goal: Absence of falls Outcome: Progressing as expected Problem: Intrapartum process (including labor pain) Goal: Able to cope with pain Outcome: Progressing as expected Problem: Intrapartum process (including labor pain) Goal: Able to cope with pain Outcome: Progressing as expected Oma Ward RN [facility] 2024-01-09 12:47:48 Problem: Intrapartum process (including labor pain) Goal: Absence of or reduction of complications of labor Outcome: Progressing as expected Goal: Able to cope with pain Outcome: Progressing as expected Goal: Adequate to move to next level of care Outcome: Progressing as expected Goal: Reduction in pain sensation Outcome: Progressing as expected [facility] 2024-01-09 10:00:00 Images from the original note were not included. Transfusion Medicine Service Immunohematology Interpretation Patient Name: Felicity Biggs Date of Service: 01/09/2024 CPT: 62022 ICD-10: Z01.84 Patient History: Felicity Biggs is a 27 year old female at 328w3d, with BOSSMAN 03/30/2024, by Last Menstrual Period. 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 Select panel cells were used to rule out the presence of all other clinically significant alloantibodies. Plan: - Patient is a candidate for Rh immune globulin to be administered at the time of delivery of a Rh positive or Rh unknown baby. - There is no indication for anti-D antibody titer since as the anti-D antibody that has been identified is most likely passively acquired. Transfusion Medicine Resident: Zach Elam Attending Attestation: I personally participated in the evaluation of the patient's chart, labs, and relevant antibody panels and agree with the immunohematology interpretation and plan as written by Dr. Elam. Please see the Resident's note for additional details. Sam Rizvi MD, A Director Emergency Services, Blood Banking/Transfusion Medicine Department of Pathology [facility] Zach Elam [facility] 2023-12-26 17:01:14 Problem: Discharge Planning - Antepartum Goal: Absence of seizure activity Outcome: Resolved Goal: Adequate for discharge Outcome: Resolved Goal: Blood pressure within specified parameters Outcome: Resolved Problem: Falls, Risk of Goal: Absence of falls Outcome: Resolved T Trinh Vazquez RN [facility] 2023-12-25 20:00:43 Problem: Discharge Planning - Antepartum Goal: Absence of seizure activity Outcome: Progressing as expected Goal: Adequate for discharge Outcome: Progressing as expected Goal: Blood pressure within specified parameters Outcome: Progressing as expected Problem: Falls, Risk of Goal: Absence of falls Outcome: Progressing as expected [facility] 2023-12-25 15:40:36 Problem: Discharge Planning - Antepartum Goal: Absence of seizure activity Outcome: Progressing as expected Goal: Adequate for discharge Outcome: Progressing as expected Goal: Blood pressure within specified parameters Outcome: Progressing as expected Justice Cordero RN [facility] 2023-12-25 06:32:57 Problem: Discharge Planning - Antepartum Goal: Absence of seizure activity Outcome: Progressing as expected Goal: Blood pressure within specified parameters Outcome: Progressing as expected Jessica Ramirez RN [facility] 2023-12-24 06:41:34 Problem: Discharge Planning - Antepartum Goal: Absence of seizure activity Outcome: Progressing as expected Goal: Adequate for discharge Outcome: Progressing as expected Goal: Blood pressure within specified parameters Outcome: Progressing as expected T [facility] 2023-12-18 16:53:29 Called pt, discussed POC. Pt would like have genetics appointment kael to discuss risk and benefits of having amniocentesis. Pss notified to schedule pt on 12/20/2023. Maryellen Wall RN 12/18/23 4:54 PM [facility] 2023-12-18 15:29:05 Please notify the patient, her is considered IUGR, it appears she was counseled during the ultrasound by Dr. Fernando, the plan of care is for her to have ..Weekly follow up for ASTER and umbilical artery doppler .. Growth q 3 weeks ..Weekly BPP starting at 26 weeks .. 2x weekly nst at 32 weeks This is all done to follow up with the growth/health of the baby, depending on how things progress her due date may change. I will place orders for her to see the genetic counselor, so she can ask further question in regards to having an amnio, and it was recommend by [facility]. BRODERICK Wills 12/18/2023 3:34 PM T [facility] 2023-12-18 11:59:00 Felicity Biggs is a 27 year old female Kazakh speaking patient requesting to speak with provider regarding results from 12/16 Ultrasound and Why the need of more ultrasounds and also was told about recommendation too get a Amnio exam. Please call [phone] (home) Belkys Hairston [facility] 2023-12-12 15:48:53 Called pt, discussed results and poc. Pt verbalized understanding. Maryellen Wall RN 12/12/23 3:50 PM T [facility] 2023-12-12 15:01:15 Please notify the patient that the last ultrasound her baby is measuring smaller, FGR, so she will need follow up growth ultrasound. In addition pyelectasis of the kidney was noted which basically means there is build up of urine in the baby kidneys, causing the kidney to enlarge, so the recommendation is for her to have follow usg, which she is scheduled for 12/16 BRODERICK Wills 12/12/2023 3:07 PM [facility] 2023-12-12 13:51:41 Felicity Biggs is a 27 year old female Kazakh ob pt requesting call back, wants to know what the results of her USG done on 12/10 are. States she was called and a new USG was scheduled out of [place] and she's worried that something is wrong with her baby and wants to know what the results showed from the 12/10 scan. Please call pt [phone] (home) Aislinn Dial [facility] 2023-10-18 14:43:30 Called patient, notified positive for BV. Educated patient on antibiotics, daily probiotics, and BV prevention measures. Pt verbalized understanding. PB BIGGS RN 10/18/2023 2:43 PM T [facility] 2023-10-18 14:31:56 Please let patient know she has BV and I erx flagyl T [facility] 2023-10-16 08:38:51 Called pt, pt having vaginal discharge x 2 days. Reports cramping and lower back pain. Pt has tried Tylenol with no relief. Pt denies vaginal bleeding. Pt scheduled for same day evaluation. Strict er warnings given. Verbalized understanding. Maryellen Wall RN 10/16/23 8:40 AM T [facility] 2023-10-16 08:05:16 Felicity Biggs is a 27 year old female Kazakh Pt states she is 4 months hips have been hurting and stomach feels heavy X 3 days. Requesting to speak to nurse Please call [phone] (home) Alyse Trivedi [facility] 2023-09-27 08:05:03 Called pt, discussed katie results. Verbalized understanding. Maryellen Wall RN 09/27/23 8:05 AM [facility] 2023-09-26 09:52:20 Felicity Biggs is a 27 year old female is requesting a callback to discuss test results. Please call. Thank you. Elvia Cao [facility] 2023-09-04 16:23:29 Patient informed of results from 08/22/2023, verbalized understanding. T [facility] 2023-09-04 16:18:26 Copied from [facility] #[id number]. Topic: Clinical - Medical Advice >> Sep 04, 2023 4:17 PM Patient Baker Operator Automatic wrote: Felicity Biggs is a 27 year old female calling via cyber defense incident responder to talk with an nurse about lab results from 08/21 appt. Please contact patient at [phone] (home) Delia Del Cid [facility] 2023-08-26 10:30:16 Patient stated she has been having heart burn every day for the past couple of days. Patient referred to safe medication list and advised to call back if no relief, verbalized understanding. [facility] 2023-08-26 09:36:39 Pt was returning missed call. 9:36 am. SS Ilene Buitrago [facility] 2023-08-26 09:11:22 Attempt#1. Called, no answer. not set up. PB BIGGS RN 08/26/2023 9:11 AM T [facility] 2023-08-26 08:18:49 Felicity Biggs is a 27 year old female Kazakh Pt states she has bad heartburn and feels like stomach is burning, unable to eat. Requesting advise. Please call [phone] (home) Alyse Trivedi [facility] 2023-08-21 07:15:00 Patient presented to clinic for blood work. Pt unable to tolerate procedure. Pt rescheduled. [facility] 2023-08-16 07:58:33 Patient informed of results and need for 3 hr gtt. Lab appt made for 08/20, informed to be fasting. Informed of results for RH negative and educated on RhoGAM. Pt stated she was having mild cramping last night but it went away. Informed to continue to monitor, take Tylenol if needed, drink 8-10 glasses of water a day and to keep appt for today. ER warnings given, verbalized understanding. T [facility] 2023-08-15 16:28:08 Please notify the patient she failed her 1 hr gtt. She needs to come in for a fasting 3hr gtt Please also notify the patient she is RH neg she will need rhogam at 28 weeks and prn vaginal bleeding BRODERICK Wills 08/15/2023 4:28 PM [facility]2024-04-29 00:00:00 [facility]
[2024-06-05] MEDS ORDERED: MECLIZINE HCL 12.5 MG TAB ONE (06:38)
[2024-06-05] MEDS ORDERED: NA CHLORIDE 0.9% 1,000 ML ONE (06:38)
[2024-06-05 06:47] LABS: Absolute Basophils 0.1 K/uL (0-0.5); Absolute Eosinophils 0.2 K/uL (0-0.5); Absolute Lymphocytes (CBC) 2.5 K/uL (0.7-4.9); Absolute Monocytes 0.6 K/uL (0.1-1.3); Absolute Neutrophil 3.3 K/uL (1.8-8.0); Basophils % 1.1 % (0-1.3); Hematocrit 40.1 % (36.0-45.0); Hemoglobin 13.5 g/dL (12.0-15.0); Lymphocytes % 37.3 % (15.3-44.8); MCH 27.7 pg (27.0-35.0); MCHC 33.6 g/dL (32.0-36.0); MCV 82.5 fL (80-100); MPV 8.3 fL (7.6-11.3); Monocytes % 9.4 % (3.3-12.3); Neutrophils % 49.2 % (41.7-73.7); Nucleated Red Blood Cells % 0.1 % (0-0); Platelets 251 thou/uL (152-406); RBC Red Blood Cell Count 4.86 M/uL (3.86-4.86); Red Cell Distribution Width 13.7 % (12.1-15.2)
[2024-06-05 06:53] LABS: PT Prothrombin Time 10.8 SECONDS (10-13.0); Protime INR 0.94
[2024-06-05 07:08] LABS: ALT/SGPT 254 U/L (13-56); AST/SGOT 150 U/L (15-37); Albumin 3.6 g/dL (3.4-5.0); Albumin/Globulin Ratio 1.1 (1.1-1.8); Alkaline Phosphatase 230 U/L (45-117); Anion Gap 7.6 mEq/L (5.0-15.0); BUN Blood Urea Nitrogen 13 mg/dL (7-18); Bicarbonate 23 mEq/L (21-32); Bilirubin Direct 0.2 mg/dL (0-0.2); Bilirubin Indirect, Calculated 0.1 mg/dL (0.2-0.8); Bilirubin Total 0.3 mg/dL (0.2-1.0); Globulin 3.2 g/dL (2.3-3.5); Glomerular Filtration Rate 127 ml/min (=/>90); Glucose Level 100 mg/dL (74-106); Magnesium 1.9 mg/dL (1.6-2.4); NT PRO-BNP 84 pg/mL (<125); Potassium 3.6 mEq/L (3.5-5.1); Protein, Total 6.8 g/dL (6.4-8.2); Sodium Level 136 mEq/L (136-145)
[2024-06-05 07:09] LABS: C-Reactive Protein < 2.90 mg/L (<3.00); Troponin High Sensitivity < 3.0 pg/mL (<58.9)
--- NOTE | 2024-06-05 07:40 | RAD REPORT ---
EXAMINATION: ONE VIEW CHEST XR CLINICAL INDICATION: CHEST PAIN TECHNIQUE: Frontal chest projection is submitted. Examination is limited by patient positioning and t echnique. COMPARISON: 05/22/2022 FINDINGS: The lungs are well inflated and clear. The heart is normal in size. No displaced fractures identified . IMPRESSION: No acute intrathoracic abnormalities.
--- NOTE | 2024-06-05 08:19 | RAD REPORT ---
EXAMINATION: CT ABDOMEN AND PELVIS WITH CONTRAST CLINICAL INDICATION: hepatitis TECHNIQUE: CT abdomen and pelvis was performed, after the administration of IV contrast, as per [facility] protocol. Axial, sagittal and coronal reconstructions were obtained. One or more of the following dose reduction techniques were used: Automated exposure control, adjustment of the mA and k V according to patient size, and iterative reconstruction. Unless otherwise specified, incidental findings do not require dedicated imaging follow-up. COMPARISON: 05/06/2022 FINDINGS: LOWER CHEST: The visualized lung bases are clear. LIVER: Normal in size and contour. No focal lesion. Grossly unremarkable gallbladder. SPLEEN: Normal size. No focal lesion. PANCREAS: No mass, ductal dilation, or salvatore-pancreatic fluid. ADRENALS: Normal; no mass. KIDNEYS: Normal size and contour. No hydronephrosis. GASTROINTESTINAL TRACT: No evidence of free air, significant intra-abdominal free fluid, bowel obstru ction or abscess. APPENDIX: Normal appendix. LYMPH NODES: No lymphadenopathy. MUSCULOSKELETAL: No acute or suspicious osseous abnormality. ADDITIONAL FINDINGS: None. IMPRESSION: No acute or concerning abnormalities seen in the abdomen or pelvis.
--- NOTE | 2024-06-05 08:19 | RAD REPORT ---
EXAM: Right upper quadrant ultrasound. CLINICAL HISTORY: hepatitis COMPARISON: None. FINDINGS: Gallbladder: Normal. Bile ducts: No intrahepatic or extrahepatic biliary dilatation. Common bile duct measures 3 mm. Limited imaging of the liver shows no concerning finding. IMPRESSION: Unremarkable exam.
[2024-06-05 09:52] LABS: Hepatitis B Core IgM Nonreactive (Nonreactive); Hepatitis B surface AG Interp. Nonreactive (Nonreactive); Hepatitis C Virus Ab Nonreactive (Nonreactive)
[2024-06-05 09:55] LABS: HBsAG Nonreactive Report Report
--- NOTE | 2024-06-05 10:14 | EDPHYS ---
Physician Documentation [facility] Name: Felicity Biggs Age: 28 yrs Sex: Female : 01/27/1996 Arrival Date: 06/05/2024 Time: 06:02 Bed 15 Private MD: ED Physician Jai Suárez HPI: 06/05 06:23 This 28 yrs old Female presents to ER via Ambulatory with complaints of sp4 Dizziness, Weakness. 06:38 28-year-old female presents with 3 days of headache, dizziness, nausea, near syncopal sp4 episode. Patient has history of 1 . At this time patient has Nexplanon denied possibility of being .. Historical: - Allergies: 06:12 No Known Allergies; jj7 - PMHx: 06:12 None; jj7 - PSHx: 06:12 None; jj7 - Immunization history:: Adult Immunizations up to date. - Infectious Disease History:: Denies. - Family history:: not pertinent. - Social history:: Smoking status: Patient denies any tobacco usage or history of. Patient/guardian denies using alcohol, street drugs, IV drugs. ROS: 06:46 Constitutional: Negative for fever, chills, and weight loss, positive generalized sp4 weakness, positive dizziness, positive nausea 06:46 All other systems are negative, Exam: 06:46 Constitutional: This is a well developed, well nourished patient who is awake, alert, sp4 and in no acute distress. Head/Face: Normocephalic, atraumatic. Eyes: Pupils equal round and reactive to light, extra-ocular motions intact. Lids and lashes normal. Conjunctiva and sclera are not injected. Cornea within normal limits. Periorbital areas with no swelling, redness, or edema. ENT: Nares patent. No nasal discharge, no septal abnormalities noted. Tympanic membranes are normal and external auditory canals are clear. Oropharynx with no redness, swelling, or masses, exudates, or evidence of obstruction, uvula midline. Mucous membranes moist. Neck: Trachea midline, no thyromegaly or masses palpated, and no cervical lymphadenopathy. Supple, full range of motion without nuchal rigidity, or vertebral point tenderness. Chest/axilla: Normal chest wall appearance and motion. Nontender with no deformity. No lesions are appreciated. Cardiovascular: Regular rate and rhythm with a normal S1 and S2. No gallops, murmurs, or rubs. Normal PMI, no JVD. No pulse deficits. Respiratory: Lungs have equal breath sounds bilaterally, clear to auscultation and percussion. No rales, rhonchi or wheezes noted. No increased work of breathing, no retractions or nasal flaring. Abdomen/GI: Soft, with normal bowel sounds. No distension or tympany. No guarding or rebound. No evidence of tenderness throughout. Back: No spinal tenderness. No costovertebral tenderness. Skin: Warm, dry with normal turgor. Normal color with no rashes, no lesions, and no evidence of cellulitis. MS/ Extremity: Pulses equal, no cyanosis. Neurovascular intact. Full, normal range of motion. Neuro: Awake and alert, GCS 15, oriented to person, place, time, and situation. Cranial nerves II-XII grossly intact. Motor strength 5/5 in all extremities. Sensory grossly intact. Psych: Awake, alert, with orientation to person, place and time. Behavior, mood, and affect are within normal limits 07:52 ECG was reviewed by the Attending Physician. EKG 0704 normal sinus rhythm normal sp4 EKG. Vital Signs: 06:10 BP 129 / 92; Pulse 77; Resp 17; Temp 98.1; Pulse Ox 100% ; Weight 54.43 kg; Height 5 jj7 ft. 0 in. ; 07:01 BP 129 / 97; Pulse 77; Resp 17; Pulse Ox 100% ; jj7 09:27 Pulse 79; Resp 18; Pulse Ox 100% on R/A; ld1 06:10 Body Mass Index 23.44 (54.43 kg, 152.4 cm) jj7 Lowndes Coma Score: 06:46 Eye Response: spontaneous(4). Motor Response: obeys commands(6). Verbal Response: sp4 oriented(5). Total: 15. MDM: 06:47 Differential diagnosis: hypovolemia, idiopathic dizziness, , sepsis, syncope. sp4 Data reviewed: vital signs, nurses notes, lab test result(s), EKG, radiologic studies, plain films. Transition of care: After a detail discussion of the patient's case, care is transferred to Jai Suárez MD. 07:51 Consideration of Admission/Observation Escalation of care including sp4 admission/observation considered. ED course: EKG revealed normal sinus rhythm rate 77. Labs revealed elevated AST ALT and alkaline phosphatase. AST 150, ALT 254, alkaline phosphatase 230. CT and ultrasound were ordered for evaluation of the liver and associated structures. Patient care signed out to Dr. Landin. 07:52 Medical Screening Exam initiated rt 13:28 Independent interpretation of the following test(s) in the Emergency Department CT rt Scan: My interpretation is No cholelithiasis seen on interpretation of CT scan images. Counseling: I had a detailed discussion with the patient and/or guardian regarding the historical points, exam findings, and any diagnostic results supporting the discharge/admit diagnosis, lab results, radiology results, the need for outpatient follow up, to return to the emergency department if symptoms worsen or persist or if there are any questions or concerns that arise at home. ED course: Inform patient of findings of elevated transaminases, no signs of obstruction, hepatitis panel is negative. Patient was informed of these findings and instructed to follow-up as an outpatient.. 06/05 06:31 Order name: Basic Metabolic Panel; Complete Time: 07:37 sp4 06/05 06:31 Order name: CBC with Diff; Complete Time: 07:37 sp4 06/05 06:31 Order name: LFT's; Complete Time: 07:37 sp4 06/05 06:31 Order name: Magnesium; Complete Time: 07:37 sp4 06/05 06:31 Order name: NT PRO-BNP; Complete Time: 07:37 sp4 06/05 06:31 Order name: PT-INR; Complete Time: 07:37 sp4 06/05 06:31 Order name: Troponin HS; Complete Time: 07:37 sp4 06/05 06:32 Order name: CRP; Complete Time: 07:37 sp4 06/05 06:32 Order name: TSH; Complete Time: 07:37 sp4 06/05 06:32 Order name: T4 Free; Complete Time: 07:37 sp4 06/05 06:32 Order name: Test, Serum; Complete Time: 07:37 sp4 06/05 07:37 Order name: Hepatitis Panel; Complete Time: 09:56 sp4 06/05 06:31 Order name: XRAY Chest (1 view); Complete Time: 07:50 sp4 06/05 07:38 Order name: CT Abd/Pelvis - IV Contrast Only; Complete Time: 08:20 sp4 06/05 07:38 Order name: US Abdomen Limited; Complete Time: 08:20 sp4 06/05 06:31 Order name: Cardiac monitoring; Complete Time: 07:01 sp4 06/05 06:31 Order name: EKG - Nurse/Tech; Complete Time: 07:01 sp4 06/05 06:31 Order name: IV Saline Lock; Complete Time: 06:44 sp4 06/05 06:31 Order name: Labs collected and sent; Complete Time: :44 sp4 06/05 06:31 Order name: O2 Per Protocol; Complete Time: :44 sp4 06/05 06:31 Order name: O2 Sat Monitoring; Complete Time: : sp4 EC:04 Rate is 77 beats/min. Rhythm is regular, Normal Sinus Rhythm. QRS [place] is Normal. [place] sp4 interval is normal. QRS interval is normal. QT interval is normal. No Q waves. T waves are Normal. No ST changes noted. Clinical impression: Normal ECG. Interpreted by me. Reviewed by me. Administered Medications: 06:44 Drug: Meclizine PO 25 mg PO once Route: PO; jj7 06:45 Drug: NS 0.9% IV 1000 ml IV at 1 bolus Per protocol; to be given as a bolus over 60 jj7 minutes Route: IV; Rate: 1 bolus; Site: right antecubital; Disposition Summary: 06/05/24 10:13 Discharge Ordered Notes: Location: Home rt Problem: new rt Symptoms: have improved rt Condition: Stable rt Diagnosis - Syncope Near rt - Transaminitis rt Followup: rt - With: Private Physician - When: 2 - 3 days - Reason: Followup: rt - With: Rashel Smalls MD - When: 2 - 3 days - Reason: Recheck today's complaints Discharge Instructions: - Discharge Summary Sheet rt - Near-Syncope rt - Liver Function Tests rt Forms: - Medication Reconciliation Form rt - Antibiotic Education rt - Prescription Opioid Use rt - Patient Portal Instructions rt - Leadership Thank You Letter rt Signatures: Dispatcher [employer] Fabiano Monroy RN RN jj7 Jai Suárez MD MD rt Donald Murphy MD MD sp4 Corrections: (The following items were deleted from the chart) 06:32 06:32 BASIC METABOLIC PANEL+C.LAB.BRZ ordered. EDMS EDMS 06:32 06:32 CBC+H.LAB.BRZ ordered. EDMS EDMS 06:32 06:32 HEPATIC FUNCTION+C.LAB.BRZ ordered. EDMS EDMS 06:32 06:32 MAGNESIUM+C.LAB.BRZ ordered. EDMS EDMS 06:32 06:32 PROBNP+C.LAB.BRZ ordered. EDMS EDMS 06:32 06:32 PROTIME (+INR)+COAG.LAB.BRZ ordered. EDMS EDMS 06:32 06:32 Troponin High Sensitivity+C.LAB.BRZ ordered. EDMS EDMS 06:32 06:32 Chest Single View+RAD.RAD.BRZ ordered. EDMS EDMS 06:32 06:32 C-REACTIVE PROTEIN+C.LAB.BRZ ordered. EDMS EDMS 06:32 06:32 THYROID STIMULAT HORMONE+C.LAB.BRZ ordered. EDMS EDMS 06:32 06:32 T4 FREE+C.LAB.BRZ ordered. EDMS EDMS 07:38 07:38 Abdomen Pelvis W Con+CT.RAD.BRZ ordered. EDMS EDMS 07:39 07:39 Abdomen Limited+US.RAD.BRZ ordered. EDMS EDMS
--- NOTE | 2024-06-05 10:14 | ER ---
Nurse's Notes [facility] Name: Felicity Biggs Age: 28 yrs Sex: Female : 01/27/1996 Arrival Date: 06/05/2024 Time: 06:02 Bed 15 Private MD: Diagnosis: Syncope Near;Transaminitis Presentation: 06/05 06:10 Chief complaint: Patient states: GOT INTO AN ARGUMENT WITH SOMEONE 3 DAYS AGO AND HAS j7 BEEN HAVING DIZZINESS, HEADACHE AND NAUSEA EVER SINCE. Coronavirus screen: At this time, the client does not indicate any symptoms associated with coronavirus-19. Ebola Screen: No symptoms or risks identified at this time. Initial Sepsis Screen: Does the patient meet any 2 criteria? No. Patient's initial sepsis screen is negative. Does the patient have a suspected source of infection? No. Patient's initial sepsis screen is negative. Onset of symptoms was June 02, 2024. 06:10 Method Of Arrival: Ambulatory [facility] 06:10 Acuity: ROSALBA 4 jj7 Triage Assessment: 06:10 The onset of the patients symptoms was more than six hours ago. General: Appears in no jj7 apparent distress. comfortable, Behavior is calm, cooperative, appropriate for age. Neuro: Level of Consciousness is awake, alert, obeys commands, Oriented to person, place, time, situation, Appropriate for age Gait is steady, Speech is normal, Reports dizziness, headache. Historical: - Allergies: 06:12 No Known Allergies; jj7 - PMHx: 06:12 None; jj7 - PSHx: 06:12 None; jj7 - Immunization history:: Adult Immunizations up to date. - Infectious Disease History:: Denies. - Family history:: not pertinent. - Social history:: Smoking status: Patient denies any tobacco usage or history of. Patient/guardian denies using alcohol, street drugs, IV drugs. Screenin:12 [facility] ED Fall Risk Assessment (Adult) History of falling in the last 3 months, jj7 including since admission No falls in past 3 months (0 pts) Confusion or Disorientation No (0 pts) Intoxicated or Sedated No (0 pts) Impaired Gait No (0 pts) Mobility Assist Device Used No (0 pt) Altered Elimination No (0 pt) Score/Fall Risk Level 0 - 2 = Low Risk Oriented to surroundings, Maintained a safe environment, Educated pt \T\ family on fall prevention, incl call for assistance when getting out of bed, Assessed \T\ reinforced patient's understanding of fall precautions. Abuse screen: Denies threats or abuse. Nutritional screening: No deficits noted. Tuberculosis screening: No symptoms or risk factors identified. Assessment: 06:11 General: Appears in no apparent distress. comfortable, Behavior is calm, cooperative, jj7 appropriate for age. Pain: Complains of pain in head. Neuro: Reports dizziness, headache. 09:27 Reassessment: Patient appears in no apparent distress at this time. No changes from ld1 previously documented assessment. Patient and/or family updated on plan of care and expected duration. Pain level reassessed. Patient is alert, oriented x 3, equal unlabored respirations, skin warm/dry/pink. Vital Signs: 06:10 BP 129 / 92; Pulse 77; Resp 17; Temp 98.1; Pulse Ox 100% ; Weight 54.43 kg; Height 5 jj7 ft. 0 in. ; 07:01 BP 129 / 97; Pulse 77; Resp 17; Pulse Ox 100% ; jj7 09:27 Pulse 79; Resp 18; Pulse Ox 100% on R/A; ld1 06:10 Body Mass Index 23.44 (54.43 kg, 152.4 cm) jj7 Quentin Coma Score: 06:46 Eye Response: spontaneous(4). Motor Response: obeys commands(6). Verbal Response: sp4 oriented(5). Total: 15. ED Course: 06:04 Patient arrived in ED. jj6 06:10 Fabiano Connelly RN is Primary Nurse. jj7 06:10 Arm band placed on right wrist. Patient placed in an exam room, on a stretcher. jj7 06:12 Patient has correct armband on for positive identification. Bed in low position. Call jj7 light in reach. Provided Education on: USE OF CALL KIRBY. Warm blanket given. 06:17 Triage completed. jj7 06:22 Donald Murphy MD is Attending Physician. sp4 06:40 Inserted saline lock: 22 gauge in right antecubital area, using aseptic technique. ha1 Blood collected. Flushed with 10 mL NS. 06:44 Test, Serum Sent. ha1 06:44 T4 Free Sent. ha1 06:44 TSH Sent. ha1 06:44 CRP Sent. ha1 06:44 Basic Metabolic Panel Sent. ha1 06:44 CBC with Diff Sent. ha1 06:44 LFT's Sent. ha1 06:44 Magnesium Sent. ha1 06:44 NT PRO-BNP Sent. ha1 06:44 PT-INR Sent. ha1 06:44 Troponin HS Sent. ha1 07:09 Report given to BRITTON PRITCHARD. jj7 07:16 XRAY Chest (1 view) In Process Unspecified. EDMS 07:50 Attending Physician role handed off by Donald Murphy MD rt 07:50 Jai Suárez MD is Attending Physician. rt 07:55 CT Abd/Pelvis - IV Contrast Only In Process Unspecified. EDMS 08:14 US Abdomen Limited In Process Unspecified. EDMS 10:13 Rashel Smalls MD is Referral Physician. rt 11:02 No provider procedures requiring assistance completed. IV discontinued, intact, ld1 bleeding controlled, No redness/swelling at site. Administered Medications: 06:44 Drug: Meclizine PO 25 mg PO once Route: PO; jj7 06:45 Drug: NS 0.9% IV 1000 ml IV at 1 bolus Per protocol; to be given as a bolus over 60 jj7 minutes Route: IV; Rate: 1 bolus; Site: right antecubital; Medication: 06:12 VIS not applicable for this client. jj7 Outcome: 10:13 Discharge ordered by MD. rt 11:03 Discharged to home ambulatory, ld1 11:03 Condition: stable 11:03 Discharge instructions given to patient, Instructed on discharge instructions, follow up and referral plans. Demonstrated understanding of instructions, follow-up care, 11:03 Patient left the ED. ld1 Signatures: Dispatcher [employer] EDMS Britton Henry RN RN ld1 Macy Roland jj6 Isabelle Gutierrez RN RN ha1 Fabiano Connelly RN RN jj7 Jai Suárez MD MD rt Donald Murphy MD MD sp4
[2024-06-05 11:07] VITALS: TEMP 98.1; O2SAT 100
[2024-06-05 11:09] VITALS: BP 129/97
== END 2024-06-05 11:03 | disposition home or self-care (01) ==
LOC: ER 06:02
DX: R55 Syncope and collapse (principal); R74.01 Elevation of levels of liver transaminase levels
CPT/HCPCS: 93005; 85025; 80048; 36415; 83735; 84703; 85610; 80076; 84443; 84484; 84439; 83880; 86140; 80074; 74177; 71045; 76705; 99284; Q9967; J8597; J7030